=== PATIENT | male | born 1950 | race Caucasian/White ===

== ENCOUNTER 2020-01-23 10:42 | Outpatient (REF) | payer MEDICARE, SELFPAY ==
[2020-01-23 12:21] LABS: Basophils Absolute Auto 0.1 X10*3/uL (0.0-0.2); Basophils Percent Auto 0.6 % (0-2); Eosinophils Absolute Auto 0.1 X10*3/uL (0.0-0.4); Eosinophils Percent Auto 0.9 % (0-4); Hematocrit 41.9 % (42-52); Hemoglobin 13.9 g/dl (14.0-18.0); Imm Gran Abs Auto 0.02 X10*3/uL (0.00-0.03); Imm Gran Pct Auto 0.1 % (0.0-0.4); Lymphocytes Percent Auto 69.1 % (20-40); MANUAL DIFF FLAG SCAN; Mean Corpuscular HGB Conc 33.2 g/dl (31.0-36.0); Mean Corpuscular Hemoglobin 31.6 pg (27.0-33.0); Mean Corpuscular Volume 95.2 fL (80-98); Monocytes Absolute Auto 0.6 X10*3/uL (0.1-1.2); Monocytes Percent Auto 4.1 % (2-11); Neutrophils Absolute Auto 3.5 X10*3/uL (2.0-8.3); Neutrophils Percent Auto 25.2 % (45-73); Platelet Count 205 X10*3/uL (160-400); Red Cell Distribution Width 12.5 % (11.0-16.0); SCAN SMEAR FLAG 1; White Blood Count 13.7 X10*3/uL (4.8-10.8)
[2020-01-23 12:24] LABS: Lymphocytes Absolute Auto 9.5 X10*3/uL (1.2-4.9)
[2020-01-23 12:44] LABS: Alanine Aminotransferase 32 U/L (0-40); Albumin Level 4.4 g/dL (3.5-5.0); Alkaline Phosphatase 48 U/L (39-117); Anion Gap 11 (12-20); Aspartate Amino Transferase 29 U/L (5-37); Bilirubin Total 0.6 mg/dL (0.0-1.0); Blood Urea Nitrogen 26 mg/dL (9-16); Calcium 9.5 mg/dL (8.4-10.2); Carbon Dioxide 29 mmol/L (22-29); Chloride 102 mmol/L (96-108); Cholesterol 209 mg/dL; Estimated Glomerular Filt Rate > 60; Glucose Fasting 91 mg/dL (60-99); HDL Cholesterol 63 mg/dL; LDL Cholesterol Calculated 115 mg/dl; Potassium 4.9 mmol/l (3.3-5.1); Sodium 137 mmol/L (135-145); Total Protein 6.9 g/dL (6.5-8.0); Triglycerides 156 mg/dL
[2020-01-23 14:20] LABS: SLIDE REVIEW VERIFIED
== END 2020-01-23 10:43 | disposition home or self-care (01) ==
LOC: HO.LAB 10:42
PROVIDERS: PCP Internal Medicine Medical Oncology; Visit Provider Internal Medicine Medical Oncology
DX: I10 Essential (primary) hypertension (principal); E78.2 Mixed hyperlipidemia; D72.820 Lymphocytosis (symptomatic)
CPT/HCPCS: 36415; 80053; 80061; 85025

== ENCOUNTER 2020-04-25 12:09 | Outpatient (REF) | payer MEDICARE, SELFPAY ==
[2020-04-25 14:35] LABS: Baso%MD 0.7 %; Eos%MD 1.4 %; Hematocrit 41.2 % (42-52); Hemoglobin 13.7 g/dl (14.0-18.0); IG%MD 0.2 %; Lymph%MD 60.6 %; Mean Corpuscular HGB Conc 33.3 g/dl (31.0-36.0); Mean Corpuscular Hemoglobin 31.8 pg (27.0-33.0); Mean Corpuscular Volume 95.6 fL (80-98); Mean Platelet Volume 11.5 fL (9.4-12.4); Mono%MD 7.8 %; Neut%MD 29.3 %; Platelet Count 167 X10*3/uL (160-400); Red Blood Count 4.31 X10*6/uL (4.60-5.80); Red Cell Distribution Width 11.5 % (11.0-16.0); White Blood Count 8.3 X10*3/uL (4.8-10.8)
[2020-04-25 14:59] LABS: Alanine Aminotransferase 23 U/L (0-40); Albumin Level 4.1 g/dL (3.5-5.0); Alkaline Phosphatase 46 U/L (39-117); Anion Gap 11 (12-20); Aspartate Amino Transferase 24 U/L (5-37); Bilirubin Total 0.6 mg/dL (0.0-1.0); Blood Urea Nitrogen 21 mg/dL (9-16); Calcium 9.2 mg/dL (8.4-10.2); Carbon Dioxide 30 mmol/L (22-29); Chloride 104 mmol/L (96-108); Estimated Glomerular Filt Rate > 60; Glucose Random 76 mg/dL (60-115); Potassium 4.4 mmol/l (3.3-5.1); Sodium 141 mmol/L (135-145); Total Protein 6.5 g/dL (6.5-8.0)
[2020-04-25 15:36] LABS: Basophils Abs Manual 0.1 X10*3/uL (0.0-0.3); Basophils Percent Manual 1 % (0-1); Eosinophils Absolute Manual 0.2 X10*3/UL (0.0-0.8); Eosinophils Percent Manual 2 % (0-4); Lymphocytes Absolute Manual 3.7 X10*3/uL (0.6-4.8); Lymphocytes Percent Manual 44 % (20-40); Monocytes Absolute Manual 0.5 X10*3/uL (0.0-1.2); Monocytes Percent Manual 6 % (2-11); Neutrophils Percent Manual 47 % (45-73)
[2020-04-25 15:37] LABS: Platelet Estimate NORMAL (NORMAL); Platelet Morphology Comment NORMAL; RBC Morphology NORMAL
[2020-04-25 16:36] LABS: Neutrophils Absolute Manual 3.9 X10*3/uL (2.2-7.9)
== END 2020-04-25 12:10 | disposition home or self-care (01) ==
LOC: HO.10HDL 12:09
PROVIDERS: Visit Provider Internal Medicine Medical Oncology
DX: I10 Essential (primary) hypertension (principal); E78.2 Mixed hyperlipidemia; D72.820 Lymphocytosis (symptomatic)
CPT/HCPCS: 36415; 80053; 85007; 85027

== ENCOUNTER 2020-08-26 10:25 | Outpatient (REF) | payer MEDICARE, SELFPAY ==
[2020-08-26 11:43] LABS: Basophils Absolute Auto 0.1 X10*3/uL (0.0-0.2); Eosinophils Absolute Auto 0.3 X10*3/uL (0.0-0.4); Eosinophils Percent Auto 2.7 % (0-4); Hematocrit 41.2 % (42-52); Hemoglobin 13.7 g/dl (14.0-18.0); Imm Gran Abs Auto 0.02 X10*3/uL (0.00-0.03); Imm Gran Pct Auto 0.2 % (0.0-0.4); Lymphocytes Percent Auto 65.9 % (20-40); MANUAL DIFF FLAG SCAN; Mean Corpuscular HGB Conc 33.3 g/dl (31.0-36.0); Mean Corpuscular Hemoglobin 31.2 pg (27.0-33.0); Mean Corpuscular Volume 93.8 fL (80-98); Monocytes Absolute Auto 0.5 X10*3/uL (0.1-1.2); Neutrophils Absolute Auto 2.4 X10*3/uL (2.0-8.3); Neutrophils Percent Auto 25.2 % (45-73); Platelet Count 219 X10*3/uL (160-400); Red Blood Count 4.39 X10*6/uL (4.60-5.80); Red Cell Distribution Width 12.8 % (11.0-16.0); SCAN SMEAR FLAG 1; White Blood Count 9.6 X10*3/uL (4.8-10.8)
[2020-08-26 12:01] LABS: Lymphocytes Absolute Auto 6.3 X10*3/uL (1.2-4.9)
[2020-08-26 12:02] LABS: Alanine Aminotransferase 23 U/L (0-40); Albumin Level 4.4 g/dL (3.5-5.0); Alkaline Phosphatase 53 U/L (39-117); Anion Gap 13 (12-20); Aspartate Amino Transferase 26 U/L (5-37); Bilirubin Total 0.6 mg/dL (0.0-1.0); Blood Urea Nitrogen 21 mg/dL (9-16); Carbon Dioxide 27 mmol/L (22-29); Chloride 104 mmol/L (96-108); Cholesterol 236 mg/dL; Estimated Glomerular Filt Rate > 60; Glucose Random 95 mg/dL (60-115); HDL Cholesterol 60 mg/dL; LDL Cholesterol Calculated 146 mg/dl; Sodium 139 mmol/L (135-145); Total Protein 7.1 g/dL (6.5-8.0); Triglycerides 153 mg/dL
[2020-08-26 12:53] LABS: SLIDE REVIEW VERIFIED
== END 2020-08-26 10:26 | disposition home or self-care (01) ==
LOC: HO.LAB 10:25
PROVIDERS: PCP Internal Medicine Medical Oncology; Visit Provider Internal Medicine Medical Oncology
DX: I10 Essential (primary) hypertension (principal); D72.820 Lymphocytosis (symptomatic)
CPT/HCPCS: 36415; 80053; 80061; 85025

== ENCOUNTER 2020-12-11 10:33 | Outpatient (REF) | payer MEDICARE, SELFPAY ==
[2020-12-11 13:50] LABS: Basophils Absolute Auto 0.1 X10*3/uL (0.0-0.2); Basophils Percent Auto 0.6 % (0-2); Eosinophils Absolute Auto 0.2 X10*3/uL (0.0-0.4); Eosinophils Percent Auto 2.3 % (0-4); Hematocrit 42.1 % (42-52); Hemoglobin 13.8 g/dl (14.0-18.0); Imm Gran Abs Auto 0.02 X10*3/uL (0.00-0.03); Imm Gran Pct Auto 0.2 % (0.0-0.4); Lymphocytes Absolute Auto 7.1 X10*3/uL (1.2-4.9); Lymphocytes Percent Auto 66.7 % (20-40); MANUAL DIFF FLAG SCAN; Mean Corpuscular HGB Conc 32.8 g/dl (31.0-36.0); Mean Corpuscular Hemoglobin 31.2 pg (27.0-33.0); Mean Corpuscular Volume 95.2 fL (80-98); Mean Platelet Volume 11.2 fL (9.4-12.4); Monocytes Absolute Auto 0.5 X10*3/uL (0.1-1.2); Monocytes Percent Auto 4.9 % (2-11); Neutrophils Absolute Auto 2.7 X10*3/uL (2.0-8.3); Neutrophils Percent Auto 25.3 % (45-73); Platelet Count 171 X10*3/uL (160-400); Red Blood Count 4.42 X10*6/uL (4.60-5.80); Red Cell Distribution Width 12.4 % (11.0-16.0); SCAN SMEAR FLAG 1; White Blood Count 10.6 X10*3/uL (4.8-10.8)
[2020-12-11 14:38] LABS: Alanine Aminotransferase 30 U/L (0-40); Albumin Level 4.2 g/dL (3.5-5.0); Alkaline Phosphatase 49 U/L (39-117); Anion Gap 13 (12-20); Aspartate Amino Transferase 30 U/L (5-37); Bilirubin Total 0.5 mg/dL (0.0-1.0); Blood Urea Nitrogen 18 mg/dL (9-16); Calcium 9.6 mg/dL (8.4-10.2); Carbon Dioxide 28 mmol/L (22-29); Chloride 106 mmol/L (96-108); Cholesterol 211 mg/dL; Estimated Glomerular Filt Rate > 60; Glucose Fasting 98 mg/dL (60-99); HDL Cholesterol 66 mg/dL; LDL Cholesterol Calculated 117 mg/dl; Potassium 5.7 mmol/L (3.3-5.1); Sodium 141 mmol/L (135-145); Total Protein 6.9 g/dL (6.5-8.0); Triglycerides 144 mg/dL
[2020-12-11 14:46] LABS: SLIDE REVIEW VERIFIED
== END 2020-12-11 10:34 | disposition home or self-care (01) ==
LOC: HO.10HDL 10:33
PROVIDERS: PCP Internal Medicine Medical Oncology; Visit Provider Internal Medicine Medical Oncology
DX: I10 Essential (primary) hypertension (principal); E78.2 Mixed hyperlipidemia; D72.820 Lymphocytosis (symptomatic)
CPT/HCPCS: 36415; 80053; 80061; 85025

== ENCOUNTER 2020-12-16 08:51 | Outpatient (REF) | payer MEDICARE, SELFPAY ==
--- NOTE | ~2020-12-16 | CT_ITS ---
EXAMINATION: CT CHEST WITH CONTRAST CLINICAL INFORMATION: Cough, history of nicotine dependence. COMPARISON: CT scans of the chest, the most recent of which is dated 02/25/2018. TECHNIQUE: Multidetector volumetric CT imaging of the chest was obtained after the administration of 65 mL of Omnipaque 350 intravenous contrast without immediate adverse reactions. Axial MIP volume rendering provided. Sagittal and coronal reformatted images were obtained. This CT examination was performed using dose optimization techniques as appropriate, variously including the following: *Automated exposure control *Adjustment of mA and/or kV according to patient size (this includes techniques or standardized protocols for targeted exams where dose is matched to indication/reason for exam; i.e. extremities or head) *Use of iterative reconstruction technique DLP: 131 mGy-cm FINDINGS: BRAID MAKER: Unremarkable LUNGS: A 2 mm nodule in the posteromedial left upper lobe adjacent to the major fissure (series 5, image 67), is unchanged. There are no new nodules. MEDIASTINUM: There is no mediastinal or hilar adenopathy. There are numerous scattered coronary artery calcifications, unchanged. The thyroid gland is unremarkable. The trachea and mainstem bronchi are unremarkable. PLEURA: There is no pleural effusion. No pleural mass or thickening. AXILLA: No lymphadenopathy. UPPER ABDOMEN: Three enhancing lesions in the liver, compatible with hemangiomas, are unchanged. The upper abdominal structures are otherwise unremarkable. OSSEOUS STRUCTURES: There is stable mild multilevel degenerative disc disease. There are no suspicious osseous abnormalities. CT/CT chest w con IMPRESSION: 1. Stable 2 mm calcified granuloma in the left upper lobe. No other nodules or mass lesions. 2. Stable enhancing lesions in the liver compatible with hemangiomas. 3. No acute abnormalities in the chest.
[2020-12-16] MEDS: iohexoL 350 MG/ML 100 ML INFUS..BTL IV (09:35)
== END 2020-12-16 08:52 | disposition home or self-care (01) ==
LOC: HO.CT 08:51
PROVIDERS: PCP Internal Medicine Medical Oncology; Visit Provider Internal Medicine Medical Oncology
DX: R05 Cough (principal); Z87.891 Personal history of nicotine dependence
CPT/HCPCS: 71260; Q9967

== ENCOUNTER → 2021-01-16 10:00 | Outpatient (REF) | payer MEDICARE, SELFPAY ==
--- NOTE | 2021-01-16 10:04 | CA_ITS ---
Acquisition Time: 2021-01-16 10:17:54 Total Exercise Time: 00:04:26 Test Indications: Screening for CAD Medications: LISINOPRIL HCTZ Protocol: AUGUST Max HR: 160 BPM 107% of Pred: 149 BPM Max BP: 182/084 mmHG Max Work Load: 6.3 METS Exercise stress test with exercise 4 min 26 sec of August protocol and request to stop due to moderate shortness of breath, no chest discomfort, with isolated PVCs, and PACs with more frequent PACs in recovery, with brisk chronotropic ( achieved 85% MPHR at 1 min 20 sec exercise and 100% MPHR at 2 min 18 sec of exercise) and normotensive response to exercise, with EKG changes meeting criteria for ischemia: 1.[address] depression in V5-V6 then in recovery with downsloping ST segements inferiorly, with gradual improvement during the remainder of recovery. Test reviewed with Dr Dobbs. Msg sent to Dr Horta with above findings. Recommend an exercise nuclear stress test for further evaluation. Referred By: Hugo Smith Overread By: KIMANI SHARP
== END ==
LOC: HO.CARD 10:00
PROVIDERS: PCP Internal Medicine Medical Oncology; Visit Provider Internal Medicine Medical Oncology
DX: I25.10 Atherosclerotic heart disease of native coronary artery without angina pectoris (principal); I25.84 Coronary atherosclerosis due to calcified coronary lesion
CPT/HCPCS: 93017

== ENCOUNTER → 2021-01-31 08:45 | Outpatient (REF) | payer MEDICARE, SELFPAY ==
--- NOTE | ~2021-01-31 | NM_ITS ---
Exercise Myocardial perfusion study Indication: Coronary artery calcification to evaluate for myocardial ischemia Technique: The patient was brought in for an exercise perfusion study on 01/31/2021. Patient performed exercise as per Edward protocol and was injected 25 mCi of sestamibi was given intravenously one target HR was achieved. Images were obtained using the SPECT gamma camera interlaced with the gating device. Images were obtained in supine position. Resting perfusion study was performed on 02/03/2021. Patient was administered 25 mCi of sestamibi intravenously at rest. Images were then obtained in supine position. Images obtained with and without CT attenuation. Total DLP 76 mGy-cm. Images were processed with the software and compared side to side in short axis, horizontal long axis and vertical long axis views. Findings: The stress perfusion study showed nonattenuated images show mildly reduced uptake in the distal anterior, focal, moderately reduced uptake in the basal and mid inferior and absent uptake in the inferoapical wall of the LV myocardium. Attenuation corrected images show moderately reduced uptake in the distal anterior, mildly reduced uptake in the apex, absent uptake in a small area of inferoapical wall and mildly to moderately reduced uptake in the basal and mid inferior wall of the LV myocardium. Remainder of the LV myocardium is normally perfused.. The gated study with stress and not be obtained due to irregular heart beat. LV cavity is moderately dilated in size. Resting study shows nontender images show persistent small area of mildly reduced uptake in the distal anterior wall reversible persistent absent uptake in the inferoapical wall of the basal inferior wall reduced uptake. Attenuation corrected images show moderately reduced uptake in the focal small area of distal anterior wall as well as mildly reduced uptake in the apex of the uptake in the basal and mid inferior wall and partially improved uptake in the inferoapical wall.. Gating at rest reveals inferior wall motion abnormality with ejection fraction at 49%. The findings are consistent with partially reversible defect of the inferior wall which may suggest ischemia in the RCA distribution. Fixed anteroapical defect consistent with nontransmural infarct. NM/NM maranda perf SPECT rest & str Impression: 1. Partially reversible defect in inferior wall suggests RCA territory ischemia with small area of nontransmural anteroapical 2. Gated LVEF is 49% rest 3. Transient ischemic dilatation not present but LV cavity is dilated, consider echocardiogram Stress EKG is positive for ischemia
--- NOTE | 2021-01-31 08:49 | CA_ITS ---
Acquisition Time: 2021-01-31 08:49:42 Total Exercise Time: 00:05:00 Test Indications: Screening for CAD Medications: LISINOPRIL HCTZ Protocol: AUGUST Max HR: 153 BPM 102% of Pred: 149 BPM Max BP: 178/088 mmHG Max Work Load: 7.0 METS Exercise stress test with exercise 5 min of August protocol, with mild sob, no chest discomfort, with brisk chronotropic response ( achieved 85% MPHR at 1 min 39 sec of exercise, 100% MPHR at 4 min 24 sec of exercise) and normotensive response to exercise, with EKG changes meeting criteria for ischemia: horizontal ST depression inferiorly, V5-V6 which become downsloping STs during recovery and gradually improvement to his baseline slight downlope of ST inferiorly and V5-V6. Nuclear images pending. Test reviewed with Dr Macias. Referred By: Hugo Smith Overread By: KIMANI SHARP
== END ==
LOC: HO.CARD 08:45
PROVIDERS: Visit Provider Internal Medicine Medical Oncology
DX: I25.10 Atherosclerotic heart disease of native coronary artery without angina pectoris (principal); I25.84 Coronary atherosclerosis due to calcified coronary lesion; I10 Essential (primary) hypertension
CPT/HCPCS: 78452; 93017; A9500

== ENCOUNTER 2021-04-16 09:51 | Outpatient (REF) | payer MEDICARE, SELFPAY ==
[2021-04-16 11:30] LABS: Basophils Absolute Auto 0.1 X10*3/uL (0.0-0.2); Basophils Percent Auto 0.6 % (0-2); Eosinophils Absolute Auto 0.2 X10*3/uL (0.0-0.4); Eosinophils Percent Auto 2.1 % (0-4); Hematocrit 41.5 % (42.0-52.0); Hemoglobin 14.1 g/dl (14.0-18.0); Imm Gran Abs Auto 0.02 X10*3/uL (0.00-0.03); Imm Gran Pct Auto 0.2 % (0.0-0.4); Lymphocytes Percent Auto 61.7 % (20-40); MANUAL DIFF FLAG SCAN; Mean Corpuscular Hemoglobin 31.4 pg (27.0-33.0); Mean Corpuscular Volume 92.4 fL (80.0-98.0); Mean Platelet Volume 12.2 fL (9.4-12.4); Monocytes Absolute Auto 0.8 X10*3/uL (0.1-1.2); Monocytes Percent Auto 6.6 % (2-11); Neutrophils Absolute Auto 3.3 x10*3/uL (2.0-8.3); Neutrophils Percent Auto 28.8 % (45-73); Platelet Count 145 X10*3/uL (160-400); Red Blood Count 4.49 X10*6/uL (4.60-5.80); Red Cell Distribution Width 11.9 % (11.0-16.0); SCAN SMEAR FLAG 1; White Blood Count 11.3 X10*3/uL (4.8-10.8)
[2021-04-16 12:00] LABS: Alanine Aminotransferase 55 U/L (0-40); Albumin Level 4.1 g/dL (3.5-5.0); Alkaline Phosphatase 51 U/L (39-117); Anion Gap 8 (12-20); Aspartate Amino Transferase 40 U/L (5-37); Bilirubin Total 0.7 mg/dL (0.0-1.0); Blood Urea Nitrogen 19 mg/dL (9-16); Calcium 9.6 mg/dL (8.4-10.2); Carbon Dioxide 29 mmol/L (22-29); Chloride 106 mmol/L (96-108); Cholesterol 157 mg/dL; Estimated Glomerular Filt Rate > 60; Glucose Fasting 95 mg/dL (60-99); HDL Cholesterol 52 mg/dL; LDL Cholesterol Calculated 82 mg/dl; Sodium 139 mmol/L (135-145); Total Protein 6.5 g/dL (6.5-8.0); Triglycerides 118 mg/dL
[2021-04-16 12:03] LABS: SLIDE REVIEW VERIFIED
== END 2021-04-16 09:52 | disposition home or self-care (01) ==
LOC: HO.10HDL 09:51
PROVIDERS: Visit Provider Internal Medicine Medical Oncology
DX: I10 Essential (primary) hypertension (principal); E78.2 Mixed hyperlipidemia
CPT/HCPCS: 36415; 80053; 80061; 85025

== ENCOUNTER 2021-05-01 10:05 | Outpatient (REF) | payer MEDICARE, SELFPAY ==
[2021-05-01 14:19] LABS: Basophils Absolute Auto 0.1 X10*3/uL (0.0-0.2); Basophils Percent Auto 0.7 % (0-2); Eosinophils Absolute Auto 0.2 X10*3/uL (0.0-0.4); Eosinophils Percent Auto 2.1 % (0-4); Hemoglobin 14.1 g/dl (14.0-18.0); Imm Gran Abs Auto 0.02 X10*3/uL (0.00-0.03); Imm Gran Pct Auto 0.2 % (0.0-0.4); Lymphocytes Percent Auto 63.5 % (20-40); MANUAL DIFF FLAG SCAN; Mean Corpuscular HGB Conc 33.6 g/dl (31.0-36.0); Mean Corpuscular Hemoglobin 31.4 pg (27.0-33.0); Mean Corpuscular Volume 93.5 fL (80.0-98.0); Mean Platelet Volume 11.7 fL (9.4-12.4); Monocytes Absolute Auto 0.6 X10*3/uL (0.1-1.2); Monocytes Percent Auto 5.7 % (2-11); Neutrophils Absolute Auto 2.8 x10*3/uL (2.0-8.3); Neutrophils Percent Auto 27.8 % (45-73); Platelet Count 149 X10*3/uL (160-400); Red Blood Count 4.49 X10*6/uL (4.60-5.80); SCAN SMEAR FLAG 1
[2021-05-01 14:23] LABS: Lymphocytes Absolute Auto 6.4 X10*3/uL (1.2-4.9)
[2021-05-01 14:45] LABS: SLIDE REVIEW VERIFIED
[2021-05-01 14:55] LABS: Alanine Aminotransferase 86 U/L (0-40); Alkaline Phosphatase 51 U/L (39-117); Anion Gap 8 (12-20); Aspartate Amino Transferase 56 U/L (5-37); Bilirubin Total 0.4 mg/dL (0.0-1.0); Blood Urea Nitrogen 21 mg/dL (9-16); Calcium 9.3 mg/dL (8.4-10.2); Carbon Dioxide 29 mmol/L (22-29); Chloride 106 mmol/L (96-108); Cholesterol 144 mg/dL; Estimated Glomerular Filt Rate 59; Glucose Fasting 88 mg/dL (60-99); HDL Cholesterol 48 mg/dL; LDL Cholesterol Calculated 72 mg/dl; Potassium 4.4 mmol/L (3.3-5.1); Sodium 139 mmol/L (135-145); Total Protein 6.5 g/dL (6.5-8.0); Triglycerides 121 mg/dL
== END 2021-05-01 10:06 | disposition home or self-care (01) ==
LOC: HO.10HDL 10:05
PROVIDERS: Visit Provider Internal Medicine Medical Oncology
DX: I10 Essential (primary) hypertension (principal); E78.2 Mixed hyperlipidemia
CPT/HCPCS: 36415; 80053; 80061; 85025

== ENCOUNTER 2021-07-21 11:55 | Outpatient (REF) | payer MEDICARE, SELFPAY ==
[2021-07-21 13:25] LABS: Basophils Absolute Auto 0.1 X10*3/uL (0.0-0.2); Basophils Percent Auto 0.6 % (0-2); Eosinophils Absolute Auto 0.1 X10*3/uL (0.0-0.4); Eosinophils Percent Auto 1.4 % (0-4); Hematocrit 41.4 % (42.0-52.0); Hemoglobin 13.6 g/dl (14.0-18.0); Imm Gran Abs Auto 0.02 X10*3/uL (0.00-0.03); Imm Gran Pct Auto 0.2 % (0.0-0.4); Lymphocytes Absolute Auto 5.9 X10*3/uL (1.2-4.9); Lymphocytes Percent Auto 58.5 % (20-40); MANUAL DIFF FLAG SCAN; Mean Corpuscular HGB Conc 32.9 g/dl (31.0-36.0); Mean Corpuscular Hemoglobin 31.3 pg (27.0-33.0); Mean Corpuscular Volume 95.4 fL (80.0-98.0); Mean Platelet Volume 11.7 fL (9.4-12.4); Monocytes Absolute Auto 0.7 X10*3/uL (0.1-1.2); Monocytes Percent Auto 6.4 % (2-11); Neutrophils Absolute Auto 3.3 x10*3/uL (2.0-8.3); Neutrophils Percent Auto 32.9 % (45-73); Platelet Count 176 X10*3/uL (160-400); Red Blood Count 4.34 X10*6/uL (4.60-5.80); Red Cell Distribution Width 11.9 % (11.0-16.0); SCAN SMEAR FLAG 1; White Blood Count 10.1 X10*3/uL (4.8-10.8)
[2021-07-21 13:48] LABS: SLIDE REVIEW VERIFIED
[2021-07-21 13:51] LABS: Alanine Aminotransferase 28 U/L (0-40); Albumin Level 4.2 g/dL (3.5-5.0); Alkaline Phosphatase 49 U/L (39-117); Anion Gap 8 (12-20); Aspartate Amino Transferase 22 U/L (5-37); Bilirubin Total 0.5 mg/dL (0.0-1.0); Blood Urea Nitrogen 17 mg/dL (9-16); Calcium 9.8 mg/dL (8.4-10.2); Carbon Dioxide 28 mmol/L (22-29); Chloride 106 mmol/L (96-108); Cholesterol 121 mg/dL; Estimated Glomerular Filt Rate > 60; Glucose Fasting 73 mg/dL (60-99); HDL Cholesterol 48 mg/dL; LDL Cholesterol Calculated 44 mg/dl; Potassium 4.2 mmol/L (3.3-5.1); Sodium 138 mmol/L (135-145); Total Protein 6.6 g/dL (6.5-8.0); Triglycerides 145 mg/dL
== END 2021-07-21 11:56 | disposition home or self-care (01) ==
LOC: HO.10HDL 11:55
PROVIDERS: Visit Provider Internal Medicine Medical Oncology
DX: I10 Essential (primary) hypertension (principal); E78.2 Mixed hyperlipidemia
CPT/HCPCS: 36415; 80053; 80061; 85025

== ENCOUNTER 2021-11-12 10:19 | Outpatient (REF) | payer MEDICARE, SELFPAY ==
[2021-11-12 13:50] LABS: Basophils Absolute Auto 0.1 X10*3/uL (0.0-0.2); Basophils Percent Auto 0.7 % (0-2); Eosinophils Absolute Auto 0.1 X10*3/uL (0.0-0.4); Eosinophils Percent Auto 1.3 % (0-4); Hematocrit 41.2 % (42.0-52.0); Hemoglobin 13.8 g/dl (14.0-18.0); Imm Gran Abs Auto 0.02 X10*3/uL (0.00-0.03); Imm Gran Pct Auto 0.2 % (0.0-0.4); Lymphocytes Percent Auto 65.7 % (20-40); MANUAL DIFF FLAG SCAN; Mean Corpuscular HGB Conc 33.5 g/dl (31.0-36.0); Mean Corpuscular Hemoglobin 30.9 pg (27.0-33.0); Mean Corpuscular Volume 92.2 fL (80.0-98.0); Mean Platelet Volume 12.5 fL (9.4-12.4); Monocytes Absolute Auto 0.5 X10*3/uL (0.1-1.2); Monocytes Percent Auto 5.2 % (2-11); Neutrophils Absolute Auto 2.8 x10*3/uL (2.0-8.3); Neutrophils Percent Auto 26.9 % (45-73); Platelet Count 157 X10*3/uL (160-400); Red Blood Count 4.47 X10*6/uL (4.60-5.80); Red Cell Distribution Width 12.1 % (11.0-16.0); SCAN SMEAR FLAG 1; White Blood Count 10.5 X10*3/uL (4.8-10.8)
[2021-11-12 13:52] LABS: Lymphocytes Absolute Auto 6.9 X10*3/uL (1.2-4.9)
[2021-11-12 14:12] LABS: SLIDE REVIEW VERIFIED
[2021-11-12 14:17] LABS: Alanine Aminotransferase 39 U/L (0-40); Albumin Level 4.5 g/dL (3.5-5.0); Alkaline Phosphatase 55 U/L (39-117); Anion Gap 13 (12-20); Aspartate Amino Transferase 37 U/L (5-37); Bilirubin Total 0.5 mg/dL (0.0-1.0); Blood Urea Nitrogen 19 mg/dL (9-16); Calcium 9.6 mg/dL (8.4-10.2); Carbon Dioxide 27 mmol/L (22-29); Chloride 105 mmol/L (96-108); Cholesterol 147 mg/dL; Estimated Glomerular Filt Rate 57; Gamma Glutamyl Transpeptidase 26 U/L (11-51); Glucose Fasting 88 mg/dL (60-99); HDL Cholesterol 53 mg/dL; LDL Cholesterol Calculated 77 mg/dl; Potassium 5.6 mmol/L (3.3-5.1); Sodium 139 mmol/L (135-145); Total Protein 6.9 g/dL (6.5-8.0); Triglycerides 85 mg/dL
== END 2021-11-12 10:20 | disposition home or self-care (01) ==
LOC: HO.10HDL 10:19
PROVIDERS: Visit Provider Internal Medicine Medical Oncology
DX: I10 Essential (primary) hypertension (principal); E78.2 Mixed hyperlipidemia; C91.10 Chronic lymphocytic leukemia of B-cell type not having achieved remission
CPT/HCPCS: 36415; 80053; 80061; 82977; 85025

== ENCOUNTER 2022-03-16 10:27 | Outpatient (REF) | payer MEDICARE, SELFPAY ==
[2022-03-16 11:50] LABS: Basophils Absolute Auto 0.1 X10*3/uL (0.0-0.2); Basophils Percent Auto 0.7 % (0-2); Eosinophils Absolute Auto 0.3 X10*3/uL (0.0-0.4); Eosinophils Percent Auto 2.1 % (0-4); Hematocrit 44.2 % (42.0-52.0); Hemoglobin 14.6 g/dl (14.0-18.0); Imm Gran Abs Auto 0.03 X10*3/uL (0.00-0.03); Imm Gran Pct Auto 0.2 % (0.0-0.4); Lymphocytes Percent Auto 64.5 % (20-40); Mean Corpuscular Hemoglobin 30.9 pg (27.0-33.0); Mean Corpuscular Volume 93.6 fL (80.0-98.0); Mean Platelet Volume 11.7 fL (9.4-12.4); Monocytes Absolute Auto 0.6 X10*3/uL (0.1-1.2); Monocytes Percent Auto 4.9 % (2-11); Neutrophils Absolute Auto 3.4 x10*3/uL (2.0-8.3); Neutrophils Percent Auto 27.6 % (45-73); Platelet Count 161 X10*3/uL (160-400); Red Blood Count 4.72 X10*6/uL (4.60-5.80); Red Cell Distribution Width 11.8 % (11.0-16.0); SCAN SMEAR FLAG 1; White Blood Count 12.1 X10*3/uL (4.8-10.8)
[2022-03-16 11:58] LABS: Lymphocytes Absolute Auto 7.8 X10*3/uL (1.2-4.9)
[2022-03-16 11:59] LABS: MANUAL DIFF FLAG NO
[2022-03-16 15:40] LABS: Alanine Aminotransferase 91 U/L (0-40); Albumin Level 4.3 g/dL (3.5-5.0); Alkaline Phosphatase 53 U/L (39-117); Anion Gap 12 (12-20); Aspartate Amino Transferase 68 U/L (5-37); Bilirubin Total 0.3 mg/dL (0.0-1.0); Blood Urea Nitrogen 19 mg/dL (9-16); Calcium 9.7 mg/dL (8.4-10.2); Carbon Dioxide 28 mmol/L (22-29); Chloride 104 mmol/L (96-108); Cholesterol 165 mg/dL; Estimated Glomerular Filt Rate > 60; Glucose Fasting 93 mg/dL (60-99); HDL Cholesterol 56 mg/dL; LDL Cholesterol Calculated 83 mg/dl; Potassium 5.4 mmol/L (3.3-5.1); Prostate Specific Antigen 0.47 ng/mL (<0.05-4.0); Sodium 139 mmol/L (135-145); Total Protein 6.8 g/dL (6.5-8.0); Triglycerides 133 mg/dL; Vitamin D 25-OH Total 34.4 ng/mL (>30)
== END 2022-03-16 10:28 | disposition home or self-care (01) ==
LOC: HO.10HDL 10:27
PROVIDERS: Visit Provider Internal Medicine Medical Oncology
DX: Z12.5 Encounter for screening for malignant neoplasm of prostate (principal); I10 Essential (primary) hypertension; E78.2 Mixed hyperlipidemia; C91.10 Chronic lymphocytic leukemia of B-cell type not having achieved remission; R35.1 Nocturia; E55.9 Vitamin D deficiency, unspecified
CPT/HCPCS: 36415; 80053; 80061; 82306; 84153; 85025

== ENCOUNTER 2022-09-03 09:30 | Outpatient (REF) | payer MEDICARE, SELFPAY ==
[2022-09-03 10:32] LABS: Hematocrit 42.8 % (42.0-52.0); Hemoglobin 14.1 g/dl (14.0-18.0); Mean Corpuscular HGB Conc 32.9 g/dl (31.0-36.0); Mean Corpuscular Hemoglobin 31.4 pg (27.0-33.0); Mean Corpuscular Volume 95.3 fL (80.0-98.0); Mean Platelet Volume 11.2 fL (9.4-12.4); Platelet Count 164 X10*3/uL (160-400); Red Blood Count 4.49 X10*6/uL (4.60-5.80); Red Cell Distribution Width 12.5 % (11.0-16.0); White Blood Count 12.3 X10*3/uL (4.8-10.8)
[2022-09-03 10:55] LABS: Alanine Aminotransferase 35 U/L (0-40); Albumin Level 4.2 g/dL (3.5-5.0); Alkaline Phosphatase 45 U/L (39-117); Anion Gap 10 (12-20); Aspartate Amino Transferase 31 U/L (5-37); Bilirubin Total 0.6 mg/dL (0.0-1.0); Blood Urea Nitrogen 17 mg/dL (9-16); Calcium 9.8 mg/dL (8.4-10.2); Carbon Dioxide 29 mmol/L (22-29); Chloride 108 mmol/L (96-108); Cholesterol 158 mg/dL; Estimated Glomerular Filt Rate 58; Gamma Glutamyl Transpeptidase 34 U/L (11-51); Glucose Fasting 100 mg/dL (60-99); HDL Cholesterol 52 mg/dL; LDL Cholesterol Calculated 75 mg/dl; Lactate Dehydrogenase 139 U/L (118-273); Potassium 5.6 mmol/L (3.3-5.1); Sodium 141 mmol/L (135-145); Total Protein 6.6 g/dL (6.5-8.0); Triglycerides 155 mg/dL
[2022-09-03 13:17] LABS: Atypical Lymph Absolute Manual 0.2 x10*3/uL; Atypical Lymphs Percent Manual 2 % (0-6); Band Neutrophils Percent 0 % (3-5); Basophils Abs Manual 0.1 X10*3/uL (0.0-0.2); Basophils Percent Manual 1 % (0-2); Eosinophils Absolute Manual 0.4 X10*3/uL (0.0-0.4); Eosinophils Percent Manual 3 % (0-4); Lymphocytes Absolute Manual 8.4 X10*3/uL (1.2-4.9); Lymphocytes Percent Manual 68 % (20-40); Monocytes Absolute Manual 0.9 X10*3/uL (0.1-1.2); Monocytes Percent Manual 7 % (2-11); Neutrophils Absolute Manual 2.3 X10*3/uL (2.0-8.3); Neutrophils Percent Manual 19 % (45-73)
[2022-09-03 13:18] LABS: Platelet Estimate NORMAL (NORMAL); Platelet Morphology Comment NORMAL; RBC Morphology NORMAL; Smudge Cells PRESENT
== END 2022-09-03 09:31 | disposition home or self-care (01) ==
LOC: HO.10HDL 09:30
PROVIDERS: Visit Provider Internal Medicine Medical Oncology
DX: I10 Essential (primary) hypertension (principal); E78.2 Mixed hyperlipidemia; C91.10 Chronic lymphocytic leukemia of B-cell type not having achieved remission
CPT/HCPCS: 36415; 80053; 80061; 82977; 83615; 85007; 85025; 85027

== ENCOUNTER 2022-12-08 09:52 | Outpatient (REF) | payer MEDICARE, SELFPAY ==
[2022-12-08 11:05] LABS: Alanine Aminotransferase 34 U/L (0-40); Albumin Level 4.3 g/dL (3.5-5.0); Alkaline Phosphatase 41 U/L (39-117); Anion Gap 12 (12-20); Aspartate Amino Transferase 35 U/L (5-37); Bilirubin Total 0.7 mg/dL (0.0-1.0); Blood Urea Nitrogen 22 mg/dL (9-16); Calcium 9.7 mg/dL (8.4-10.2); Carbon Dioxide 26 mmol/L (22-29); Chloride 102 mmol/L (96-108); Cholesterol 137 mg/dL (<200); Estimated Glomerular Filt Rate > 60; Glucose Fasting 93 mg/dL (60-99); HDL Cholesterol 60 mg/dL (>40); LDL Cholesterol Calculated 64 mg/dL (<100); Potassium 4.7 mmol/L (3.3-5.1); Sodium 135 mmol/L (135-145); Total Protein 6.8 g/dL (6.5-8.0); Triglycerides 69 mg/dL (<150)
[2022-12-08 11:38] LABS: Prostate Specific Antigen 0.56 ng/mL (<0.05-4.0)
== END 2022-12-08 09:53 | disposition home or self-care (01) ==
LOC: HO.10HDL 09:52
PROVIDERS: Visit Provider Internal Medicine Medical Oncology
DX: R35.1 Nocturia (principal); I10 Essential (primary) hypertension; E78.2 Mixed hyperlipidemia; Z12.5 Encounter for screening for malignant neoplasm of prostate; Z87.891 Personal history of nicotine dependence
CPT/HCPCS: 36415; 80053; 80061; 84153; 85025

== ENCOUNTER 2022-12-11 12:35 | Outpatient (REF) | payer MEDICARE, SELFPAY ==
[2022-12-11 14:08] LABS: Basophils Absolute Auto 0.1 X10*3/uL (0.0-0.2); Basophils Percent Auto 0.9 % (0-2); Eosinophils Absolute Auto 0.2 X10*3/uL (0.0-0.4); Eosinophils Percent Auto 1.6 % (0-4); Hematocrit 40.1 % (42.0-52.0); Hemoglobin 13.5 g/dl (14.0-18.0); Imm Gran Abs Auto 0.01 X10*3/uL (0.00-0.03); Imm Gran Pct Auto 0.1 % (0.0-0.4); MANUAL DIFF FLAG SCAN; Mean Corpuscular HGB Conc 33.7 g/dl (31.0-36.0); Mean Corpuscular Hemoglobin 31.8 pg (27.0-33.0); Mean Corpuscular Volume 94.4 fL (80.0-98.0); Mean Platelet Volume 11.4 fL (9.4-12.4); Monocytes Absolute Auto 0.6 X10*3/uL (0.1-1.2); Monocytes Percent Auto 6.2 % (2-11); Neutrophils Absolute Auto 2.4 x10*3/uL (2.0-8.3); Neutrophils Percent Auto 24.2 % (45-73); Platelet Count 156 X10*3/uL (160-400); Red Blood Count 4.25 X10*6/uL (4.60-5.80); Red Cell Distribution Width 12.3 % (11.0-16.0); SCAN SMEAR FLAG 1; White Blood Count 9.8 X10*3/uL (4.8-10.8)
[2022-12-11 14:11] LABS: Lymphocytes Absolute Auto 6.6 X10*3/uL (1.2-4.9)
[2022-12-11 14:57] LABS: SLIDE REVIEW VERIFIED
== END 2022-12-11 12:36 | disposition home or self-care (01) ==
LOC: HO.10HDL 12:35
PROVIDERS: Visit Provider Internal Medicine Medical Oncology
DX: R35.1 Nocturia (principal); I10 Essential (primary) hypertension; E78.2 Mixed hyperlipidemia; Z87.891 Personal history of nicotine dependence
CPT/HCPCS: 36415; 85025

== ENCOUNTER 2023-04-08 10:23 | Outpatient (REF) | payer MEDICARE, SELFPAY ==
[2023-04-08 10:51] LABS: Basophils Absolute Auto 0.1 X10*3/uL (0.0-0.2); Basophils Percent Auto 0.5 % (0-2); Eosinophils Absolute Auto 0.1 X10*3/uL (0.0-0.4); Eosinophils Percent Auto 1.4 % (0-4); Hematocrit 40.5 % (42.0-52.0); Hemoglobin 13.6 g/dl (14.0-18.0); Imm Gran Abs Auto 0.02 X10*3/uL (0.00-0.03); Imm Gran Pct Auto 0.2 % (0.0-0.4); Lymphocytes Percent Auto 65.6 % (20-40); MANUAL DIFF FLAG SCAN; Mean Corpuscular HGB Conc 33.6 g/dl (31.0-36.0); Mean Corpuscular Hemoglobin 31.4 pg (27.0-33.0); Mean Corpuscular Volume 93.5 fL (80.0-98.0); Mean Platelet Volume 10.4 fL (9.4-12.4); Monocytes Absolute Auto 0.6 X10*3/uL (0.1-1.2); Neutrophils Absolute Auto 2.4 x10*3/uL (2.0-8.3); Neutrophils Percent Auto 26.3 % (45-73); Platelet Count 181 X10*3/uL (160-400); Red Blood Count 4.33 X10*6/uL (4.60-5.80); Red Cell Distribution Width 12.3 % (11.0-16.0); SCAN SMEAR FLAG 1; White Blood Count 9.2 X10*3/uL (4.8-10.8)
[2023-04-08 11:12] LABS: Alanine Aminotransferase 29 U/L (0-40); Albumin Level 4.1 g/dL (3.5-5.0); Alkaline Phosphatase 48 U/L (39-117); Anion Gap 11 (12-20); Aspartate Amino Transferase 35 U/L (5-37); Bilirubin Total 0.4 mg/dL (0.0-1.0); Blood Urea Nitrogen 18 mg/dL (9-16); Calcium 9.6 mg/dL (8.4-10.2); Carbon Dioxide 27 mmol/L (22-29); Chloride 107 mmol/L (96-108); Cholesterol 132 mg/dL (<200); Estimated Glomerular Filt Rate > 60; Glucose Fasting 95 mg/dL (60-99); HDL Cholesterol 53 mg/dL (>40); LDL Cholesterol Calculated 63 mg/dL (<100); Potassium 4.9 mmol/L (3.3-5.1); Sodium 140 mmol/L (135-145); Total Protein 6.9 g/dL (6.5-8.0); Triglycerides 80 mg/dL (<150)
[2023-04-08 11:31] LABS: SLIDE REVIEW VERIFIED
== END 2023-04-08 10:24 | disposition home or self-care (01) ==
LOC: HO.10HDL 10:23
PROVIDERS: Visit Provider Internal Medicine Medical Oncology
DX: Z00.00 Encounter for general adult medical examination without abnormal findings (principal); I10 Essential (primary) hypertension; E78.2 Mixed hyperlipidemia
CPT/HCPCS: 36415; 80053; 80061; 85025

== ENCOUNTER 2023-08-04 10:55 | Outpatient (REF) | payer MEDICARE, SELFPAY ==
--- NOTE | ~2023-08-04 | CT_ITS ---
EXAMINATION: CT CHEST WITH CONTRAST CLINICAL INFORMATION: Former smoker. COMPARISON: Prior CT examinations, most recently 12/16/2020. TECHNIQUE: Multidetector volumetric CT imaging of the chest was obtained after the administration of 65 mL of Omnipaque 350 intravenous contrast without immediate adverse reactions. Axial MIP volume rendering provided. Sagittal and coronal reformatted images were obtained. This CT examination was performed using dose optimization techniques as appropriate, variously including the following: *Automated exposure control *Adjustment of mA and/or kV according to patient size (this includes techniques or standardized protocols for targeted exams where dose is matched to indication/reason for exam; i.e. extremities or head) *Use of iterative reconstruction technique DLP: 127 mGy-cm FINDINGS: POLLS OR SURVEYS INTERVIEWER: The lungs are symmetrically well-expanded and grossly clear. LUNGS: A 1 mm noncalcified nodule is seen at the anterior left apex (5:36). This is stable from 12/16/2020 (5:34), and it is considered benign. There is a benign, stable calcified granuloma within the apicoposterior segment of the left upper lobe (5:71). No new nodule, mass, infiltrate or groundglass opacity is seen. There is mild dependent hypoaeration. No small airway thickening is seen. The central airways appear patent. MEDIASTINUM: The thyroid is unremarkable. There is no thoracic aortic aneurysm or dissection. There are very mild atherosclerotic calcifications of the great vessel origins and thoracic aorta. There are moderate coronary artery atherosclerotic calcifications. There are shotty, nonpathologically enlarged mediastinal lymph nodes. No sizable mediastinal or hilar lymphadenopathy is seen. PLEURA: There is no pleural effusion. No pleural mass or thickening. AXILLA: No lymphadenopathy. UPPER ABDOMEN: The bilateral adrenal glands are unremarkable. Previously described enhancing benign hepatic hemangiomas are redemonstrated. OSSEOUS STRUCTURES: There is multi-level mid and lower thoracic spondylosis and Schmorl's node formation. No acute or aggressive osseous finding is noted. CT/CT chest w IV con IMPRESSION: 1. There is are benign, stable tiny noncalcified and calcified left upper lobe nodules, unchanged from prior CT examinations including 12/16/2020. 2. No new nodule, mass, infiltrate or groundglass opacity is seen. 3. There is no thoracic lymphadenopathy or pleural effusion. 4. No aggressive osseous lesion is seen. 5. There are stable benign hepatic hemangiomas. Fleischner guidelines were followed.
[2023-08-04] MEDS: iohexoL 350 MG/ML 100 ML INFUS..BTL IV (11:50)
[2023-08-04 15:27] LABS: Creatinine POC 0.7 mg/dL (0.5-1.4); GFR POC > 60
== END 2023-08-04 10:56 | disposition home or self-care (01) ==
LOC: HO.CT 10:55
PROVIDERS: PCP Internal Medicine Medical Oncology; Visit Provider Internal Medicine Medical Oncology
DX: Z87.891 Personal history of nicotine dependence (principal)
CPT/HCPCS: 71260; 82565; Q9967

== ENCOUNTER 2023-08-11 11:21 | Outpatient (REF) | payer MEDICARE, SELFPAY ==
[2023-08-11 13:52] LABS: Basophils Absolute Auto 0.1 X10*3/uL (0.0-0.2); Basophils Percent Auto 0.8 % (0-2); Eosinophils Absolute Auto 0.2 X10*3/uL (0.0-0.4); Eosinophils Percent Auto 1.8 % (0-4); Hematocrit 41.8 % (42.0-52.0); Hemoglobin 14.1 g/dl (14.0-18.0); Imm Gran Abs Auto 0.02 X10*3/uL (0.00-0.03); Imm Gran Pct Auto 0.2 % (0.0-0.4); Lymphocytes Percent Auto 68.6 % (20-40); MANUAL DIFF FLAG SCAN; Mean Corpuscular HGB Conc 33.7 g/dl (31.0-36.0); Mean Corpuscular Hemoglobin 30.8 pg (27.0-33.0); Mean Corpuscular Volume 91.3 fL (80.0-98.0); Mean Platelet Volume 11.2 fL (9.4-12.4); Monocytes Absolute Auto 0.6 X10*3/uL (0.1-1.2); Monocytes Percent Auto 5.5 % (2-11); Neutrophils Absolute Auto 2.6 x10*3/uL (2.0-8.3); Neutrophils Percent Auto 23.1 % (45-73); Platelet Count 172 X10*3/uL (160-400); Red Blood Count 4.58 X10*6/uL (4.60-5.80); Red Cell Distribution Width 12.8 % (11.0-16.0); SCAN SMEAR FLAG 1; White Blood Count 11.4 X10*3/uL (4.8-10.8)
[2023-08-11 13:54] LABS: Lymphocytes Absolute Auto 7.8 X10*3/uL (1.2-4.9)
[2023-08-11 14:07] LABS: Alanine Aminotransferase 31 U/L (0-40); Albumin Level 4.3 g/dL (3.5-5.0); Alkaline Phosphatase 41 U/L (39-117); Anion Gap 11 (12-20); Aspartate Amino Transferase 33 U/L (5-37); Bilirubin Total 0.7 mg/dL (0.0-1.0); Blood Urea Nitrogen 23 mg/dL (9-16); Calcium 9.7 mg/dL (8.4-10.2); Carbon Dioxide 28 mmol/L (22-29); Chloride 102 mmol/L (96-108); Cholesterol 170 mg/dL (<200); Estimated Glomerular Filt Rate > 60; Glucose Fasting 95 mg/dL (60-99); HDL Cholesterol 61 mg/dL (>40); LDL Cholesterol Calculated 91 mg/dL (<100); Lactate Dehydrogenase 190 U/L (118-273); Potassium 4.3 mmol/L (3.3-5.1); Sodium 137 mmol/L (135-145); Total Protein 7.1 g/dL (6.5-8.0); Triglycerides 94 mg/dL (<150)
[2023-08-11 14:29] LABS: Prostate Specific Antigen 0.49 ng/mL (<0.05-4.0)
[2023-08-11 14:51] LABS: Erythrocyte Sedimentation Rate 3 MM/HR (0-15)
[2023-08-11 15:36] LABS: SLIDE REVIEW VERIFIED
== END 2023-08-11 11:22 | disposition home or self-care (01) ==
LOC: HO.10HDL 11:21
PROVIDERS: Visit Provider Internal Medicine Medical Oncology
DX: I10 Essential (primary) hypertension (principal); E78.2 Mixed hyperlipidemia; C91.10 Chronic lymphocytic leukemia of B-cell type not having achieved remission; N40.0 Benign prostatic hyperplasia without lower urinary tract symptoms; Z12.5 Encounter for screening for malignant neoplasm of prostate
CPT/HCPCS: 36415; 80053; 80061; 82232; 83615; 84153; 85025; 85652

== ENCOUNTER 2023-12-08 08:44 | Outpatient (REF) | payer MEDICARE, SELFPAY ==
[2023-12-08 11:41] LABS: Basophils Absolute Auto 0.1 X10*3/uL (0.0-0.2); Basophils Percent Auto 0.6 % (0-2); Eosinophils Absolute Auto 0.1 X10*3/uL (0.0-0.4); Eosinophils Percent Auto 1.2 % (0-4); Hematocrit 41.3 % (42.0-52.0); Hemoglobin 14.1 g/dl (14.0-18.0); Imm Gran Abs Auto 0.01 X10*3/uL (0.00-0.03); Imm Gran Pct Auto 0.1 % (0.0-0.4); Lymphocytes Percent Auto 65.9 % (20-40); MANUAL DIFF FLAG SCAN; Mean Corpuscular HGB Conc 34.1 g/dl (31.0-36.0); Mean Corpuscular Hemoglobin 31.8 pg (27.0-33.0); Mean Platelet Volume 10.9 fL (9.4-12.4); Monocytes Absolute Auto 0.7 X10*3/uL (0.1-1.2); Monocytes Percent Auto 6.2 % (2-11); Neutrophils Absolute Auto 2.9 x10*3/uL (2.0-8.3); Platelet Count 153 X10*3/uL (160-400); Red Blood Count 4.44 X10*6/uL (4.60-5.80); Red Cell Distribution Width 11.9 % (11.0-16.0); SCAN SMEAR FLAG 1; White Blood Count 11.1 X10*3/uL (4.8-10.8)
[2023-12-08 11:42] LABS: Lymphocytes Absolute Auto 7.3 X10*3/uL (1.2-4.9)
[2023-12-08 12:22] LABS: SLIDE REVIEW VERIFIED
[2023-12-08 12:27] LABS: Alanine Aminotransferase 31 U/L (0-40); Albumin Level 4.3 g/dL (3.5-5.0); Alkaline Phosphatase 39 U/L (39-117); Anion Gap 10 (12-20); Aspartate Amino Transferase 35 U/L (5-37); Bilirubin Total 0.7 mg/dL (0.0-1.0); Blood Urea Nitrogen 19 mg/dL (9-16); Calcium 9.9 mg/dL (8.4-10.2); Carbon Dioxide 29 mmol/L (22-29); Chloride 101 mmol/L (96-108); Cholesterol 133 mg/dL (<200); Estimated Glomerular Filt Rate > 60; Glucose Fasting 90 mg/dL (60-99); HDL Cholesterol 55 mg/dL (>40); LDL Cholesterol Calculated 59 mg/dL (<100); Potassium 4.1 mmol/L (3.3-5.1); Sodium 136 mmol/L (135-145); Total Protein 6.9 g/dL (6.5-8.0); Triglycerides 97 mg/dL (<150)
== END 2023-12-08 08:45 | disposition home or self-care (01) ==
LOC: HO.10HDL 08:44
PROVIDERS: Visit Provider Internal Medicine Medical Oncology
DX: I10 Essential (primary) hypertension (principal); E78.2 Mixed hyperlipidemia
CPT/HCPCS: 36415; 80053; 80061; 85025

== ENCOUNTER 2024-03-13 09:25 | Outpatient (REF) | payer MEDICARE, SELFPAY ==
[2024-03-13 10:39] LABS: Basophils Absolute Auto 0.1 X10*3/uL (0.0-0.2); Basophils Percent Auto 0.5 % (0-2); Eosinophils Absolute Auto 0.1 X10*3/uL (0.0-0.4); Eosinophils Percent Auto 0.8 % (0-4); Hematocrit 43.3 % (42.0-52.0); Hemoglobin 14.3 g/dl (14.0-18.0); Imm Gran Abs Auto 0.01 X10*3/uL (0.00-0.03); Imm Gran Pct Auto 0.1 % (0.0-0.4); Lymphocytes Percent Auto 64.7 % (20-40); MANUAL DIFF FLAG SCAN; Mean Corpuscular Hemoglobin 31.1 pg (27.0-33.0); Mean Corpuscular Volume 94.1 fL (80.0-98.0); Mean Platelet Volume 10.7 fL (9.4-12.4); Monocytes Percent Auto 7.9 % (2-11); Neutrophils Absolute Auto 3.4 x10*3/uL (2.0-8.3); Platelet Count 154 X10*3/uL (160-400); Red Cell Distribution Width 12.2 % (11.0-16.0); SCAN SMEAR FLAG 1; White Blood Count 12.9 X10*3/uL (4.8-10.8)
[2024-03-13 10:46] LABS: Lymphocytes Absolute Auto 8.4 X10*3/uL (1.2-4.9)
[2024-03-13 11:12] LABS: Alanine Aminotransferase 66 U/L (0-40); Albumin Level 4.4 g/dL (3.5-5.0); Alkaline Phosphatase 47 U/L (39-117); Anion Gap 9 (12-20); Aspartate Amino Transferase 53 U/L (5-37); Bilirubin Total 0.4 mg/dL (0.0-1.0); Blood Urea Nitrogen 19 mg/dL (9-16); Calcium 9.7 mg/dL (8.4-10.2); Carbon Dioxide 30 mmol/L (22-29); Chloride 103 mmol/L (96-108); Cholesterol 140 mg/dL (<200); Estimated Glomerular Filt Rate 59; Glucose Fasting 97 mg/dL (60-99); HDL Cholesterol 61 mg/dL (>40); LDL Cholesterol Calculated 64 mg/dL (<100); Potassium 4.2 mmol/L (3.3-5.1); Sodium 138 mmol/L (135-145); Total Protein 6.9 g/dL (6.5-8.0); Triglycerides 75 mg/dL (<150)
[2024-03-13 11:35] LABS: SLIDE REVIEW VERIFIED
== END 2024-03-13 09:26 | disposition home or self-care (01) ==
LOC: HO.LAB 09:25
PROVIDERS: PCP Internal Medicine Medical Oncology; Visit Provider Internal Medicine Medical Oncology
DX: I10 Essential (primary) hypertension (principal); E78.2 Mixed hyperlipidemia
CPT/HCPCS: 36415; 80053; 80061; 85025

== ENCOUNTER 2024-05-24 10:05 | Outpatient (REF) | payer MEDICARE, SELFPAY ==
--- OUTSIDE RECORDS SUMMARY | 2024-05-24 10:58 | XMS_ITS | Continuity of Care Document ---
Author Organization [facility] Address [address] [place] [address] Care Team Providers Care Drill Foreman Name Role Phone Luis RODRIGUEZ, Hugo Hernandez Primary Care Physician [place] [facility] 04/17/24 - 05/17/24 [facility] [address] [place] [address]- Encounter Type: Triage Allergies, Adverse Reactions, Alerts No Known Allergies Medications Aspirin Tablet 81 mg, By Mouth, Daily, Refills 0, Maintenance, 01/17/24 10:02:00 AM EDT, Partial fill upon patient request if the prescription is for a schedule II opioid drug. Start Date: 01/17/24 Status: Ordered Repeat number: 1 hydrochlorothiazide 25 mg oral tablet 25 mg, 1, tablet, By Mouth, Daily, Refills 0, Maintenance, 09/01/19 10:53:00 AM EDT Start Date: 09/01/19 Status: Ordered Repeat number: 1 lisinopril 10 mg oral tablet 10 mg, 1, tablet, By Mouth, Daily, Refills 0, Maintenance, 09/01/19 10:52:00 AM EDT Start Date: 09/01/19 Status: Ordered Repeat number: 1 metoprolol 25 mg oral tablet, extended release 25 mg, 1, tablet, By Mouth, Daily, # 90 tablet, Refills 3, Tot. Refills 3, Maintenance, 09/28/23 3:06:00 PM EDT, Route to Pharmacy Electronically, [facility]/pharmacy #[id number], Partial fill upon patient requestif the prescription is for a schedule II opioid drug., 179, cm, 09/28/23 14:25:00 EDT, Height Start Date: 09/28/23 Status: Ordered Quantity: 90.0 Unit: tablet Repeat number: 4 Multi-Day Plus Minerals oral tablet 1 tablet, By Mouth, Daily, # 30 tablet, 0 Refills, Maintenance, 03/26/21 9:44:00 AM EST, Tablet, Partial fill upon patient request if the prescription is for a schedule II opioid drug. 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 Dyslipidemia Confirmed Active Hypertension Confirmed Active Patient Care team information Care Team Personnel Name: Hugo Smith MD Position: [facility] Physician - Oncology Member Role: PCP Address: [address] [place] [address] [address] Hugo Smith III, [place] [address] Telecom: Care Team Related Persons Name: LANETTE PACHECO Insurance Providers Guarantor name: HOLGER Health Plan Information #: 1 Payer: MEDICARE PART B OUTPT Member Number: NA Policy Number: NA Group Number: NA Health Plan Information #: 2 Payer: MEDEX Member Number: NA Policy Number: NA Group Number: NA
--- OUTSIDE RECORDS SUMMARY | 2024-05-24 10:58 | XMS_ITS | Continuity of Care Document ---
Author Organization [facility] Address [address] [place] [address] Care Team Providers Care Chronic Condition Nurse Name Role Phone Hugo Smith MD Primary Care Physician [phone] [id number]): [facility] - [facility]18[facility]24 [facility] [address] [place] [address]- Attending Physician: Karlo Sifuentes MD Admitting Physician: Karlo Sifuentes MD Encounter Type: Pre-OutPatient One Time Allergies, Adverse Reactions, Alerts No Known Allergies [...] 3:06:00 PM EDT, Route to Pharmacy Electronically, [facility]/pharmacy #[id number], Partial fill upon patient requestif the prescription [...] Status Health St atus Informant CAD in tribal artery Confirmed Active Dyslipidemia Confirmed Active Hypertension Confirmed Active Patient Care team information Care Team Personnel Name: Hugo Smith MD Position: [facility] Physician - Oncology Member Role: PCP Address: [address] [place] [address] [address] Hugo Smith III, [place] [address]- Telecom: Care Team Related Persons Name: LANETTE PACHECO Insurance Providers Guarantor name: HOLGER Health Plan Information #: 2 Payer: MEDEX Member Number: [id number] Policy Number: NA Group Number: HOLGER Health Plan Information #: 1 Payer: MEDICARE PART B OUTPT Member Number: [id number] Policy Number: HOLGER Group Number: HOLGER"
--- OUTSIDE RECORDS SUMMARY | 2024-05-24 10:58 | XMS_ITS | Continuity of Care Document ---
Author Organization [facility] Address [address] [place] [address] Phone Care Team Providers Care Child Care Leader Name Role Phone Neha RODRIGUEZ, Greyson Unavailable Unavailable Allergies, Adverse Reactions, Alerts Substance Reaction Status Criticality No Known allergies Medications Medication Instructions Dosage Effective Dates (start - stop) Status Comments Aspir-81 81 mg Tab take 1 tablet (81MG) by ORAL route every day - Active Simvastatin 20 mg Tab 1 po qd - Active Procedures Procedure Date Offic/outpt E&m Estab Low-mod 1 Postop F/u Visit Incld Global 1 Offic/outpt E&m New Mod Sever 1 Audelia Tx Rib Fx Uncomp Ea Rad Exam Ribs Unilat; W/pa Yamilet 11 Rad Exam; Calcan Mini 2 Views 1 Rad Exam Shoulder; Complt Mini 11 Arthrocentesis/aspir/inj; Tracie 11 Methylprednisolone Acetate-40 1 Alex Jesús Advance Directives Directive Yes / No Effective Date File Name No Information Encounters Encounter Description Practice Location Reason(s) For Visit Diagnoses Date Provider Providers Copied on Encounter [facility], [address], [place], [place], [id number], [place] tel:[phone] [facility] JESUS No Information 1 Neha Rubi. [address] [facility], [address], [place], [place], [id number] , [place]. tel:[phone] Offic/outpt E&m Estab Low-mod [facility], [address] [facility] [address], [place], [place], [id number], [place] tel:[phone] [facility] left shoulder pain (chief complaint) left sided rib pain (chief complaint) left heel pain (chief complaint) SPRAIN ROTATOR CUFFFRACTURE RIB NOS-CLOSEDCon tusion - Foot 1 Neha Rubi. [address] [facility], [address], [place], [place], [id number] , [place]. tel:[phone] Referring Provider: Greyson Reid, [address] [facility] [address], [place], [address] . tel:[phone] Offic/outpt E&m New Mod Sever [facility], [address] [facility] [address], [place], [place], [id number], [place] tel:[phone] [facility] left rib pain (chief complaint) left heel pain (chief complaint) SPRAIN ROTATOR CUFFFracture, ribContusion of heel 1 Neha Rubi. [address] [facility], [address], [place], [place], [id number] , [place]. tel:[phone] Referring Provider: Greyson Reid, [address] [facility] [address], [place], [address] . tel:[phone] Family History Family Member Type Diagnosis Age At Onset Problem (finding) Family history of Arthr itis Problem (finding) Family history of malignant neoplasm of lung Problem (finding) Family history of hyper tension Problem (finding) Family history of alcoh olism Problem (finding) Family history of Stoma ch Ulcers Payers Payer name Insurance type Covered constitution party ID Authoriza tion(s) [facility] [id number] Social History Type Description Quantity Date Captured Comments Sex Male Smoking Status No Information Chief Complaint And Reason For Visit No Information Reason For Referral Reason For Referral No Information History Of Present Illness Encounter Date Complaint History Of Prese nt Illness No Information Functional Status Date Functional Assessmen t No Information Instructions Date Instruction Additional Infor mation No Information Assessments Type Assessment Date No Information Patient Care Teams Name Effective Dates (start - stop) Status Members No Information
--- OUTSIDE RECORDS SUMMARY | 2024-05-24 10:58 | XMS_ITS | Continuity of Care Document ---
Author Organization [facility] Address [address] [place] [address]- Care Team Providers Care Colorist Dyer Name Role Phone Hugo Smith MD Primary Care Physician Encounter [facility] [place] Date(s): 04/18/24 - 05/18/24 [facility] [address] [place] [address]- Attending Physician: Jose Mcallister Admitting Physician: Jose Mcallister Referring Physician: AdmJose terrazas Encounter Type: Triage Allergies, Adverse Reactions, Alerts [...] 3:06:00 PM EDT, Route to Pharmacy Electronically, [facility]/pharmacy #[id number], Partial fill upon patient requestif the prescription [...] Status Health St atus Informant CAD in redding artery Confirmed Active Dyslipidemia Confirmed Active Hypertension Confirmed Active Cardiology * Event Display: Non BH Cardiovascular Results Authored Date: * Event Display: Non Cardiovascular Results Authored Date: Laboratory * Event Display: Non BH Lab Results Authored Date: * Event Display: Non BH Lab Results Authored Date: * Event Display: Non BH Lab Results Authored Date: Patient Care team information Care Team Personnel Name: Hugo Smith MD Position: [facility] Physician - Oncology Member Role: PCP Address: [address] [place] [address] [address] [place] [address]- Telecom: Care Team Related Persons Name: LANETTE PACHECO Insurance Providers Guarantor name: HOLGER Health Plan Information #: 1 Payer: MEDICARE PART B OUTPT Member Number: NA Policy Number: NA Group Number: NA Health Plan Information #: 2 Payer: MEDEX Member Number: NA Policy Number: NA Group Number: NA
[2024-05-24 13:17] LABS: Basophils Absolute Auto 0.1 X10*3/uL (0.0-0.2); Basophils Percent Auto 0.5 % (0-2); Eosinophils Absolute Auto 0.2 X10*3/uL (0.0-0.4); Eosinophils Percent Auto 1.5 % (0-4); Hematocrit 40.8 % (42.0-52.0); Hemoglobin 13.6 g/dl (14.0-18.0); Imm Gran Abs Auto 0.02 X10*3/uL (0.00-0.03); Imm Gran Pct Auto 0.2 % (0.0-0.4); Lymphocytes Absolute Auto 8.9 X10*3/uL (1.2-4.9); Lymphocytes Percent Auto 68.5 % (20-40); MANUAL DIFF FLAG SCAN; Mean Corpuscular HGB Conc 33.3 g/dl (31.0-36.0); Mean Corpuscular Hemoglobin 31.1 pg (27.0-33.0); Mean Corpuscular Volume 93.4 fL (80.0-98.0); Mean Platelet Volume 10.9 fL (9.4-12.4); Monocytes Absolute Auto 0.6 X10*3/uL (0.1-1.2); Monocytes Percent Auto 4.9 % (2-11); Neutrophils Absolute Auto 3.2 x10*3/uL (2.0-8.3); Neutrophils Percent Auto 24.4 % (45-73); Platelet Count 137 X10*3/uL (160-400); Red Blood Count 4.37 X10*6/uL (4.60-5.80); Red Cell Distribution Width 12.4 % (11.0-16.0); SCAN SMEAR FLAG 1
[2024-05-24 13:35] LABS: SLIDE REVIEW VERIFIED
[2024-05-24 14:02] LABS: Albumin Level 4.4 g/dL (3.5-5.0); Alkaline Phosphatase 47 U/L (39-117); Anion Gap 9 (12-20); Aspartate Amino Transferase 42 U/L (5-37); Bilirubin Total 0.6 mg/dL (0.0-1.0); Blood Urea Nitrogen 16 mg/dL (9-16); Calcium 9.1 mg/dL (8.4-10.2); Carbon Dioxide 27 mmol/L (22-29); Chloride 108 mmol/L (96-108); Cholesterol 151 mg/dL (<200); Estimated Glomerular Filt Rate > 60; Glucose Fasting 96 mg/dL (60-99); HDL Cholesterol 53 mg/dL (>40); LDL Cholesterol Calculated 76 mg/dL (<100); Potassium 5.1 mmol/L (3.3-5.1); Sodium 139 mmol/L (135-145); Total Protein 7.4 g/dL (6.5-8.0); Triglycerides 114 mg/dL (<150)
[2024-05-24 14:15] LABS: Alanine Aminotransferase 47 U/L (0-40)
== END 2024-05-24 10:06 | disposition home or self-care (01) ==
LOC: HO.10HDL 10:05
PROVIDERS: Visit Provider Internal Medicine Medical Oncology
DX: I10 Essential (primary) hypertension (principal); E78.2 Mixed hyperlipidemia
CPT/HCPCS: 36415; 80053; 80061; 85025

== ENCOUNTER 2024-07-25 13:12 | Outpatient (REF) | payer MEDICARE, SELFPAY ==
--- OUTSIDE RECORDS SUMMARY | 2024-07-25 16:06 | XMS_ITS | Patient Health Record ---
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 Name Role Phone Hugo Smith Primary Care Provider Allergies Allergen (clinical drug ingredient) Drug/Non Drug Allergy documented on EMR Reaction Allergy Type Onset Date Status No Known Drug Allergy Unknown Drug Allergy Active Results Component Value Reference Range Notes URINE DIP STICK Reviewed date:08/17/2023 11:07:20 AM Interpretation: Performing Lab: Notes/Report: SG 1.015 1.005 - 1.025 pH 7.5 5.0 - 9.0 BETO Negative Negative - NIT Negative Negative - PRO 15 Negative - Trace GLU Negative Negative - KET Negative Negative - UBG 0.2 0.1 - 1.8 ANJU Negative 0.2 - 1.3 BLD Positive Negative - Creatinine GFR POC Reviewed date:08/06/2023 03:21:38 PM Interpretation: Performing Lab:[facility], [address] [place] [phone] Notes/Report: [id number] 0.68 >60 1116 HO.DIAZAAR Creatinine POC 0.7 0.5-1.4 mg/dL GFR POC > 60 Chronic Kidney Disease: Estimated GFR < 60 mL/min/1.73m2 Severe Kidney Disease: Estimated GFR < 15 mL/min/1.73m2 CT chest w con Reviewed date:08/13/2023 08:44:42 PM Interpretation: Performing Lab: Notes/Report: [address] [address] [address] Scan Report Signed Patient: Henrique Amaro MR#: [id number] : 1950 Acct:[id number] Age/Sex: 72 / M ADM Date: 08/04/23 Loc: HO.CT Attending Dr: Hugo Smith MD Ordering Physician: Hugo Smith MD Date of Service: 08/04/23 Procedure(s): CT chest w IV con Accession Number(s): [id number] cc: Hugo Smith MD EXAMINATION: CT CHEST WITH CONTRAST CLINICAL INFORMATION: Former smoker. COMPARISON: Prior CT examinations, most recently 12/16/2020. TECHNIQUE: Multidetector volumetric CT imaging of the chest was obtained after the administration of 65 mL of Omnipaque 350 intravenous contrast without immediate adverse reactions. Axial MIP volume rendering provided. Sagittal and coronal reformatted images were obtained. This CT examination was performed using dose optimization techniques as appropriate, variously including the following: *Automated exposure control *Adjustment of mA and/or kV according to patient size (this includes techniques or standardized protocols for targeted exams where dose is matched to indication/reason for exam; i.e. extremities or head) *Use of iterative reconstruction technique DLP: 127 mGy-cm FINDINGS: ELECTRONIC ENGRAVER: The lungs are symmetrically well-expanded and grossly clear. LUNGS: A 1 mm noncalcified nodule is seen at the anterior left apex (5:36). This is stable from 12/16/2020 (5:34), and it is considered benign. There is a benign, stable calcified granuloma within the apicoposterior segment of the left upper lobe (5:71). No new nodule, mass, infiltrate or groundglass opacity is seen. There is mild dependent hypoaeration. No small airway thickening is seen. The central airways appear patent. MEDIASTINUM: The thyroid is unremarkable. There is no thoracic aortic aneurysm or dissection. There are very mild atherosclerotic calcifications of the great vessel origins and thoracic aorta. There are moderate coronary artery atherosclerotic calcifications. There are shotty, nonpathologically enlarged mediastinal lymph nodes. No sizable mediastinal or hilar lymphadenopathy is seen. PLEURA: There is no pleural effusion. No pleural mass or thickening. AXILLA: No lymphadenopathy. UPPER ABDOMEN: The bilateral adrenal glands are unremarkable. Previously described enhancing benign hepatic hemangiomas are redemonstrated. OSSEOUS STRUCTURES: There is multi-level mid and lower thoracic spondylosis and Schmorl's node formation. No acute or aggressive osseous finding is noted. CT/CT chest w IV con IMPRESSION: 1. There is are benign, stable tiny noncalcified and calcified left upper lobe nodules, unchanged from prior CT examinations including 12/16/2020. 2. No new nodule, mass, infiltrate or groundglass opacity is seen. 3. There is no thoracic lymphadenopathy or pleural effusion. 4. No aggressive osseous lesion is seen. 5. There are stable benign hepatic hemangiomas. Fleischner guidelines were followed. Dictated By: Luigi Wills MD Signed By: <Electronically signed by Luigi Wills MD in OV> 08/12/23 1435 DD/ 1148 TD/TT: Material Handler 2Nd Shift: [address] [address] [address] Scan Report Signed Patient: Jovana Amaro MR#: [id number] : 1950 Acct:[id number] Age/Sex: 72 / M ADM Date: 08/04/23 Loc: HO.CT Attending Dr: Hugo Smith MD Ordering Physician: Hugo Smith MD Date of Service: 08/04/23 Procedure(s): CT [address] w IV con Accession Number(s): [id number] cc: Hugo Smith MD EXAMINATION: CT CHEST WITH CONTRAST CLINICAL INFORMATION: Former smoker. COMPARISON: Prior CT examination s, most recently 12/16/2020. TECHNIQUE: Multidetector volume tric CT imaging of the chest was obtained after the administration of 65 mL of Omnipaque 350 intravenous contrast without immediate adverse reactions. Axial MIP volume rendering provided. Sagittal and coronal reformatted images were obtained. This CT examination was performed using dose optimization techniques as appropriate, various ly including the following: *Automated exposure control *Adjustment of mA an d/or kV according to patient size (this includes techniques or standardized protocols for targeted exams where dose is matched to indication/reason for exam; i.e. extremities or head) *Use of iterative reconstruction technique DLP: 127 mGy-cm FINDINGS: ELECTRONIC ENGRAVER: The lungs are symmetrically well-expanded and grossly clear. LUNGS: A 1 mm noncalcified nodule is seen at the anterior left apex (5:36). This is stab le from 12/16/2020 (5:34), and it is considered benign. There is a benign, stable calcified granuloma within the apicoposterior segme nt of the left upper lobe (5:71). No new nodule, mass, infiltrate or groundglass opacity is seen. There is mild dependent hypoaeration. No small airway thickening is seen. The central airways appear patent. MEDIASTINUM: The thy roid is unremarkable. There is no thoracic aortic aneurysm or dissection. There are very mild atherosclerotic calcifications of the great vessel origins and thoracic aorta. There are moderate coronary artery atherosclerotic calcifications. There are shotty, nonpathologically enlarged mediastinal lymph nodes. No sizable mediastin al or hilar lymphadenopathy is seen. PLEURA: There is no pleural effusion. No pleural mass or thickening. AXILLA: No lymphadenopathy. UPPER ABDOMEN: The bilateral adrenal glands are unremarkable. Previously described enhancing benign hepatic hemangiomas are redemonstrated. OSSEOUS STRUCTURES: There is multi-level mid and lower thoracic spondylosis and Schm orl's node formation. No acute or aggressive osseous finding is noted. C T/CT chest w IV con IMPRESSION: 1. There is are bahman gn, stable tiny noncalcified and calcified left upper lobe nodules, unchanged from prior CT examinations including 12/16/2020. 2. No new nodule, ma ss, infiltrate or groundglass opacity is seen. 3. There is no thora cic lymphadenopathy or pleural effusion. 4. No aggressive oss eous lesion is seen. 5. There are stable benign hepatic hemangiomas. Fleischner guideline s were followed. Dictated By: Devan Wills MD Signed By: <Electronically signed by Luigi Wills MD in OV> 08/12/23 1435 DD/ 1148 TD/TT: [employer] ist: MARLYS Complete Blood Count Auto Di ff Reviewed date:08/13/2023 08:44:42 PM Interpretation: Performing Lab:[facility], [address] [place] [phone] Notes/Report: White Blood Count 11.4 4.8-10.8 X10*3/uL Red Blood Count 4.58 4.60-5.80 X10*6/uL Hemoglobin 14.1 14.0-18.0 g/dl Hematocrit 41.8 42.0-52.0 % Mean Corpuscular Volume 91.3 80.0-98.0 fL Mean Corpuscular Hemoglobin 30.8 27.0-33.0 pg Mean Corpuscular HGB Conc 33.7 31.0-36.0 g/dl Red Cell Distribution Width 12.8 11.0-16.0 % Platelet Count 172 160-400 X10*3/uL Mean Platelet Volume 11.2 9.4-12.4 fL Neutrophils Percent Auto 23.1 45-73 % Imm Gran Pct Auto 0.2 0.0-0.4 % Lymphocytes Percent Auto 68.6 20-40 % Monocytes Percent Auto 5.5 2-11 % Eosinophils Percent Auto 1.8 0-4 % Basophils Percent Auto 0.8 0-2 % NRBC Pct Auto 0.0 0.0-0.2 /100WBC Neutrophils Absolute Auto 2.6 2.0-8.3 x10*3/u L Imm Gran Abs Auto 0.02 0.00-0.03 X10*3/uL Lymphocytes Absolute Auto 7.8 1.2-4.9 X10*3/u L Monocytes Absolute Auto 0.6 0.1-1.2 X10*3/uL Eosinophils Absolute Auto 0.2 0.0-0.4 X10*3/u L Basophils Absolute Auto 0.1 0.0-0.2 X10*3/uL NRBC Abs Auto 0.000 0.0-0.012 X10*3/uL White Blood Count 11.4 4.8-10.8 X10*3/uL Red Blood Count 4.58 4.60-5.80 X10*6/uL Hemoglobin 14.1 14.0-18.0 g/dl Hematocrit 41.8 42.0-52.0 % Mean Corpuscular Volume 91.3 80.0-98.0 fL Mean Corpuscular Hemoglobin 30.8 27.0-33.0 pg Mean Corpuscular HGB Conc 33.7 31.0-36.0 g/dl Red Cell Distribution Width 12.8 11.0-16.0 % Platelet Count 172 160-400 X10*3/uL Mean Platelet Volume 11.2 9.4-12.4 fL Neutrophils Percent Auto 23.1 45-73 % Imm Gran Pct Auto 0.2 0.0-0.4 % Lymphocytes Percent Auto 68.6 20-40 % Monocytes Percent Auto 5.5 2-11 % Eosinophils Percent Auto 1.8 0-4 % Basophils Percent Auto 0.8 0-2 % NRBC Pct Auto 0.0 0.0-0.2 /100WBC Neutrophils Absolute Auto 2.6 2.0-8.3 x10*3/u L Imm Gran Abs Auto 0.02 0.00-0.03 X10*3/uL Lymphocytes Absolute Auto 7.8 1.2-4.9 X10*3/u L Monocytes Absolute Auto 0.6 0.1-1.2 X10*3/uL Eosinophils Absolute Auto 0.2 0.0-0.4 X10*3/u L Basophils Absolute Auto 0.1 0.0-0.2 X10*3/uL NRBC Abs Auto 0.000 0.0-0.012 X10*3/uL COR RECTED REPORT COR RECTED REPORT Erythrocyte Sedimentation Ra te Reviewed date:08/13/2023 08:44:42 PM Interpretation: Performing Lab:[facility], [address] [place] [phone] Notes/Report: Erythrocyte Sedimentation Rate 3 0-15 MM/HR Patients with polycythemia and many hemoglobin abnormalities may have depressed sed rates whereas patients with anemia may have elevated sed rates. [facility] [place]. Panel Fa st Reviewed date:08/13/2023 08:44:42 PM Interpretation: Performing Lab:[facility], [address] [place] [phone] Notes/Report: Sodium 137 135-145 mmol/L Potassium 4.3 3.3-5.1 mmol/L Chloride 102 96-108 mmol/L Carbon Dioxide 28 22-29 mmol/L Anion Gap 11 12-20 Blood Urea Nitrogen 23 9-16 mg/dL Creatinine 1.12 0.5-1.4 mg/dL Estimated Glomerular Filt Rate > 60 NOTE: For -Cymro individuals, multiply the result by 1.210. Chronic Kidney Disease: Estimated GFR < 60 mL/min/1.73m2 Severe Kidney Disease: Estimated GFR < 15 mL/min/1.73m2 Glucose Fasting 95 60-99 mg/dL Calcium 9.7 8.4-10.2 mg/dL Bilirubin Total 0.7 0.0-1.0 mg/dL Aspartate Amino Transferase 33 5-37 U/L Alanine Aminotransferase 31 0-40 U/L Total Protein 7.1 6.5-8.0 g/dL Albumin Level 4.3 3.5-5.0 g/dL Alkaline Phosphatase 41 39-117 U/L Lactate Dehydrogenase Reviewed date:08/13/2023 08:44:42 PM Interpretation: Performing Lab:[facility], [address] [place] [phone] Notes/Report: Lactate Dehydrogenase 190 118-273 U/L Lipid Panel Reviewed date:08/13/2023 08:44:42 PM Interpretation: Performing Lab:[facility], [address] [place] [phone] Notes/Report: Triglycerides 94 <150 mg/dL Desirable Triglyceride: less than 150 mg/dL Borderline High Triglyceride 150-199 mg/dL High Triglyceride: 200-499 mg/dL Very High Triglyceride: greater than or equal to 5OO mg/dL Cholesterol 170 <200 mg/dL Desirable Cholesterol: less than 200 mg/dL Borderline High Cholesterol: 200-239 mg/dL High Cholesterol: greater than 239 mg/dL LDL Cholesterol Calculated 91 <100 mg/dL Desirable LDL: less than 100 mg/dL Near Optimal/Above Optimal LDL: 110-129 mg/dL Borderline High LDL: 130-159 mg/dL High LDL: 160-189 mg/dL Very High LDL: greater than or equal to 190 mg/dL HDL Cholesterol 61 >40 mg/dL Desirable HDL: greater than 40 mg/dL Note: This HDL assay may give artificially low results in patients with liver disease. Prostate Specific Antigen Reviewed date:08/13/2023 08:44:42 PM Interpretation: Performing Lab:[facility], [address] [place] [phone] Notes/Report: Prostate Specific Antigen 0.49 <0.05-4.0 ng/mL PSA methodology: Lou Alinity i Chemiluminescent Microparticle Immunoassay (CMIA) Beta-2 Microglobulin, Serum Reviewed date:08/13/2023 08:44:42 PM Interpretation: Performing Lab:[facility], [address] [place] [phone] Notes/Report: Beta-2 Microglobulin, Serum 2.20 < OR = 2.51 mg/L THIS TEST WAS PERFORMED AT: [facility] [address] [place] [phone] GLORIA PACHECO MD SLIDE REVIEW Reviewed date:08/13/2023 08:44:42 PM Interpretation: Performing Lab:[facility], [address] [place] [phone] Notes/Report: SLIDE REVIEW VERIFIED Complete Blood Count Auto Di ff Reviewed date:12/17/2023 01:29:23 PM Interpretation: Performing Lab:[facility], [address] [place] [phone] Notes/Report: White Blood Count 11.1 4.8-10.8 X10*3/uL Red Blood Count 4.44 4.60-5.80 X10*6/uL Hemoglobin 14.1 14.0-18.0 g/dl Hematocrit 41.3 42.0-52.0 % Mean Corpuscular Volume 93.0 80.0-98.0 fL Mean Corpuscular Hemoglobin 31.8 27.0-33.0 pg Mean Corpuscular HGB Conc 34.1 31.0-36.0 g/dl Red Cell Distribution Width 11.9 11.0-16.0 % Platelet Count 153 160-400 X10*3/uL Mean Platelet Volume 10.9 9.4-12.4 fL Neutrophils Percent Auto 26.0 45-73 % Imm Gran Pct Auto 0.1 0.0-0.4 % Lymphocytes Percent Auto 65.9 20-40 % Monocytes Percent Auto 6.2 2-11 % Eosinophils Percent Auto 1.2 0-4 % Basophils Percent Auto 0.6 0-2 % NRBC Pct Auto 0.0 0.0-0.2 /100WBC Neutrophils Absolute Auto 2.9 2.0-8.3 x10*3/u L Imm Gran Abs Auto 0.01 0.00-0.03 X10*3/uL Lymphocytes Absolute Auto 7.3 1.2-4.9 X10*3/u L Monocytes Absolute Auto 0.7 0.1-1.2 X10*3/uL Eosinophils Absolute Auto 0.1 0.0-0.4 X10*3/u L Basophils Absolute Auto 0.1 0.0-0.2 X10*3/uL NRBC Abs Auto 0.000 0.0-0.012 X10*3/uL White Blood Count 11.1 4.8-10.8 X10*3/uL Red Blood Count 4.44 4.60-5.80 X10*6/uL Hemoglobin 14.1 14.0-18.0 g/dl Hematocrit 41.3 42.0-52.0 % Mean Corpuscular Volume 93.0 80.0-98.0 fL Mean Corpuscular Hemoglobin 31.8 27.0-33.0 pg Mean Corpuscular HGB Conc 34.1 31.0-36.0 g/dl Red Cell Distribution Width 11.9 11.0-16.0 % Platelet Count 153 160-400 X10*3/uL Mean Platelet Volume 10.9 9.4-12.4 fL Neutrophils Percent Auto 26.0 45-73 % Imm Gran Pct Auto 0.1 0.0-0.4 % Lymphocytes Percent Auto 65.9 20-40 % Monocytes Percent Auto 6.2 2-11 % Eosinophils Percent Auto 1.2 0-4 % Basophils Percent Auto 0.6 0-2 % NRBC Pct Auto 0.0 0.0-0.2 /100WBC Neutrophils Absolute Auto 2.9 2.0-8.3 x10*3/u L Imm Gran Abs Auto 0.01 0.00-0.03 X10*3/uL Lymphocytes Absolute Auto 7.3 1.2-4.9 X10*3/u L Monocytes Absolute Auto 0.7 0.1-1.2 X10*3/uL Eosinophils Absolute Auto 0.1 0.0-0.4 X10*3/u L Basophils Absolute Auto 0.1 0.0-0.2 X10*3/uL NRBC Abs Auto 0.000 0.0-0.012 X10*3/uL COR RECTED REPORT COR RECTED REPORT Comprehensive [place]. Panel Fa st Reviewed date:12/17/2023 01:29:23 PM Interpretation: Performing Lab:[facility], [address] [place] [phone] Notes/Report: Sodium 136 135-145 mmol/L Potassium 4.1 3.3-5.1 mmol/L Chloride 101 96-108 mmol/L Carbon Dioxide 29 22-29 mmol/L Anion Gap 10 12-20 Blood Urea Nitrogen 19 9-16 mg/dL Creatinine 1.13 0.5-1.4 mg/dL Estimated Glomerular Filt Rate > 60 NOTE: For -Cymro individuals, multiply the result by 1.210. Chronic Kidney Disease: Estimated GFR < 60 mL/min/1.73m2 Severe Kidney Disease: Estimated GFR < 15 mL/min/1.73m2 Glucose Fasting 90 60-99 mg/dL Calcium 9.9 8.4-10.2 mg/dL Bilirubin Total 0.7 0.0-1.0 mg/dL Aspartate Amino Transferase 35 5-37 U/L Alanine Aminotransferase 31 0-40 U/L Total Protein 6.9 6.5-8.0 g/dL Albumin Level 4.3 3.5-5.0 g/dL Alkaline Phosphatase 39 39-117 U/L Lipid Panel Reviewed date:12/17/2023 01:29:23 PM Interpretation: Performing Lab:[facility], [address] [place] [phone] Notes/Report: Triglycerides 97 <150 mg/dL Desirable Triglyceride: less than 150 mg/dL Borderline High Triglyceride 150-199 mg/dL High Triglyceride: 200-499 mg/dL Very High Triglyceride: greater than or equal to 5OO mg/dL Cholesterol 133 <200 mg/dL Desirable Cholesterol: less than 200 mg/dL Borderline High Cholesterol: 200-239 mg/dL High Cholesterol: greater than 239 mg/dL LDL Cholesterol Calculated 59 <100 mg/dL Desirable LDL: less than 100 mg/dL Near Optimal/Above Optimal LDL: 110-129 mg/dL Borderline High LDL: 130-159 mg/dL High LDL: 160-189 mg/dL Very High LDL: greater than or equal to 190 mg/dL HDL Cholesterol 55 >40 mg/dL Desirable HDL: greater than 40 mg/dL Note: This HDL assay may give artificially low results in patients with liver disease. SLIDE REVIEW Reviewed date:12/17/2023 01:29:23 PM Interpretation: Performing Lab:[facility], [address] [place] [phone] Notes/Report: SLIDE REVIEW VERIFIED Complete Blood Count Auto Di ff Reviewed date:03/28/2024 05:40:08 AM Interpretation: Performing Lab:[facility], [address] [place] [phone] Notes/Report: White Blood Count 12.9 4.8-10.8 X10*3/uL Red Blood Count 4.60 4.60-5.80 X10*6/uL Hemoglobin 14.3 14.0-18.0 g/dl Hematocrit 43.3 42.0-52.0 % Mean Corpuscular Volume 94.1 80.0-98.0 fL Mean Corpuscular Hemoglobin 31.1 27.0-33.0 pg Mean Corpuscular HGB Conc 33.0 31.0-36.0 g/dl Red Cell Distribution Width 12.2 11.0-16.0 % Platelet Count 154 160-400 X10*3/uL Mean Platelet Volume 10.7 9.4-12.4 fL Neutrophils Percent Auto 26.0 45-73 % Imm Gran Pct Auto 0.1 0.0-0.4 % Lymphocytes Percent Auto 64.7 20-40 % Monocytes Percent Auto 7.9 2-11 % Eosinophils Percent Auto 0.8 0-4 % Basophils Percent Auto 0.5 0-2 % NRBC Pct Auto 0.0 0.0-0.2 /100WBC Neutrophils Absolute Auto 3.4 2.0-8.3 x10*3/u L Imm Gran Abs Auto 0.01 0.00-0.03 X10*3/uL Lymphocytes Absolute Auto 8.4 1.2-4.9 X10*3/u L Monocytes Absolute Auto 1.0 0.1-1.2 X10*3/uL Eosinophils Absolute Auto 0.1 0.0-0.4 X10*3/u L Basophils Absolute Auto 0.1 0.0-0.2 X10*3/uL NRBC Abs Auto 0.000 0.0-0.012 X10*3/uL White Blood Count 12.9 4.8-10.8 X10*3/uL Red Blood Count 4.60 4.60-5.80 X10*6/uL Hemoglobin 14.3 14.0-18.0 g/dl Hematocrit 43.3 42.0-52.0 % Mean Corpuscular Volume 94.1 80.0-98.0 fL Mean Corpuscular Hemoglobin 31.1 27.0-33.0 pg Mean Corpuscular HGB Conc 33.0 31.0-36.0 g/dl Red Cell Distribution Width 12.2 11.0-16.0 % Platelet Count 154 160-400 X10*3/uL Mean Platelet Volume 10.7 9.4-12.4 fL Neutrophils Percent Auto 26.0 45-73 % Imm Gran Pct Auto 0.1 0.0-0.4 % Lymphocytes Percent Auto 64.7 20-40 % Monocytes Percent Auto 7.9 2-11 % Eosinophils Percent Auto 0.8 0-4 % Basophils Percent Auto 0.5 0-2 % NRBC Pct Auto 0.0 0.0-0.2 /100WBC Neutrophils Absolute Auto 3.4 2.0-8.3 x10*3/u L Imm Gran Abs Auto 0.01 0.00-0.03 X10*3/uL Lymphocytes Absolute Auto 8.4 1.2-4.9 X10*3/u L Monocytes Absolute Auto 1.0 0.1-1.2 X10*3/uL Eosinophils Absolute Auto 0.1 0.0-0.4 X10*3/u L Basophils Absolute Auto 0.1 0.0-0.2 X10*3/uL NRBC Abs Auto 0.000 0.0-0.012 X10*3/uL White Blood Count 12.9 4.8-10.8 X10*3/uL Red Blood Count 4.60 4.60-5.80 X10*6/uL Hemoglobin 14.3 14.0-18.0 g/dl Hematocrit 43.3 42.0-52.0 % Mean Corpuscular Volume 94.1 80.0-98.0 fL Mean Corpuscular Hemoglobin 31.1 27.0-33.0 pg Mean Corpuscular HGB Conc 33.0 31.0-36.0 g/dl Red Cell Distribution Width 12.2 11.0-16.0 % Platelet Count 154 160-400 X10*3/uL Mean Platelet Volume 10.7 9.4-12.4 fL Neutrophils Percent Auto 26.0 45-73 % Imm Gran Pct Auto 0.1 0.0-0.4 % Lymphocytes Percent Auto 64.7 20-40 % Monocytes Percent Auto 7.9 2-11 % Eosinophils Percent Auto 0.8 0-4 % Basophils Percent Auto 0.5 0-2 % NRBC Pct Auto 0.0 0.0-0.2 /100WBC Neutrophils Absolute Auto 3.4 2.0-8.3 x10*3/u L Imm Gran Abs Auto 0.01 0.00-0.03 X10*3/uL Lymphocytes Absolute Auto 8.4 1.2-4.9 X10*3/u L Monocytes Absolute Auto 1.0 0.1-1.2 X10*3/uL Eosinophils Absolute Auto 0.1 0.0-0.4 X10*3/u L Basophils Absolute Auto 0.1 0.0-0.2 X10*3/uL NRBC Abs Auto 0.000 0.0-0.012 X10*3/uL COR RECTED REPORT COR RECTED REPORT COR RECTED REPORT Pathologist Review - CBC Reviewed date:03/28/2024 05:40:08 AM Interpretation: Performing Lab:[facility], [address] [place] [phone] Notes/Report: Pathologist Review - CBC SEE NOTE Lymphocytes are increased in number and somewhat monotonous appearing; smudge cells are seen. The patient's reported history of CLL is noted. - Kyle Ramirez M.D. Pathology Comprehensive [place]. Panel Fa st Reviewed date:03/28/2024 05:40:08 AM Interpretation: Performing Lab:[facility], [address] [place] [phone] Notes/Report: Sodium 138 135-145 mmol/L Potassium 4.2 3.3-5.1 mmol/L Chloride 103 96-108 mmol/L Carbon Dioxide 30 22-29 mmol/L Anion Gap 9 12-20 Blood Urea Nitrogen 19 9-16 mg/dL Creatinine 1.21 0.5-1.4 mg/dL Estimated Glomerular Filt Rate 59 Chronic Kidney Disease: Estimated GFR < 60 mL/min/1.73m2 Severe Kidney Disease: Estimated GFR < 15 mL/min/1.73m2 Glucose Fasting 97 60-99 mg/dL Calcium 9.7 8.4-10.2 mg/dL Bilirubin Total 0.4 0.0-1.0 mg/dL Aspartate Amino Transferase 53 5-37 U/L Alanine Aminotransferase 66 0-40 U/L Total Protein 6.9 6.5-8.0 g/dL Albumin Level 4.4 3.5-5.0 g/dL Alkaline Phosphatase 47 39-117 U/L Lipid Panel Reviewed date:03/28/2024 05:40:08 AM Interpretation: Performing Lab:[facility], [address] [place] [phone] Notes/Report: Triglycerides 75 <150 mg/dL Desirable Triglyceride: less than 150 mg/dL Borderline High Triglyceride 150-199 mg/dL High Triglyceride: 200-499 mg/dL Very High Triglyceride: greater than or equal to 5OO mg/dL Cholesterol 140 <200 mg/dL Desirable Cholesterol: less than 200 mg/dL Borderline High Cholesterol: 200-239 mg/dL High Cholesterol: greater than 239 mg/dL LDL Cholesterol Calculated 64 <100 mg/dL Desirable LDL: less than 100 mg/dL Near Optimal/Above Optimal LDL: 110-129 mg/dL Borderline High LDL: 130-159 mg/dL High LDL: 160-189 mg/dL Very High LDL: greater than or equal to 190 mg/dL HDL Cholesterol 61 >40 mg/dL Desirable HDL: greater than 40 mg/dL Note: This HDL assay may give artificially low results in patients with liver disease. SLIDE REVIEW Reviewed date:03/28/2024 05:40:08 AM Interpretation: Performing Lab:[facility], [address] [place] [phone] Notes/Report: SLIDE REVIEW VERIFIED Complete Blood Count Auto Di ff Reviewed date:05/26/2024 08:58:25 AM Interpretation: Performing Lab:[facility], [address] [place] [phone] Notes/Report: White Blood Count 13.0 4.8-10.8 X10*3/uL Red Blood Count 4.37 4.60-5.80 X10*6/uL Hemoglobin 13.6 14.0-18.0 g/dl Hematocrit 40.8 42.0-52.0 % Mean Corpuscular Volume 93.4 80.0-98.0 fL Mean Corpuscular Hemoglobin 31.1 27.0-33.0 pg Mean Corpuscular HGB Conc 33.3 31.0-36.0 g/dl Red Cell Distribution Width 12.4 11.0-16.0 % Platelet Count 137 160-400 X10*3/uL Mean Platelet Volume 10.9 9.4-12.4 fL Neutrophils Percent Auto 24.4 45-73 % Imm Gran Pct Auto 0.2 0.0-0.4 % Lymphocytes Percent Auto 68.5 20-40 % Monocytes Percent Auto 4.9 2-11 % Eosinophils Percent Auto 1.5 0-4 % Basophils Percent Auto 0.5 0-2 % NRBC Pct Auto 0.0 0.0-0.2 /100WBC Neutrophils Absolute Auto 3.2 2.0-8.3 x10*3/u L Imm Gran Abs Auto 0.02 0.00-0.03 X10*3/uL Lymphocytes Absolute Auto 8.9 1.2-4.9 X10*3/u L Monocytes Absolute Auto 0.6 0.1-1.2 X10*3/uL Eosinophils Absolute Auto 0.2 0.0-0.4 X10*3/u L Basophils Absolute Auto 0.1 0.0-0.2 X10*3/uL NRBC Abs Auto 0.000 0.0-0.012 X10*3/uL White Blood Count 13.0 4.8-10.8 X10*3/uL Red Blood Count 4.37 4.60-5.80 X10*6/uL Hemoglobin 13.6 14.0-18.0 g/dl Hematocrit 40.8 42.0-52.0 % Mean Corpuscular Volume 93.4 80.0-98.0 fL Mean Corpuscular Hemoglobin 31.1 27.0-33.0 pg Mean Corpuscular HGB Conc 33.3 31.0-36.0 g/dl Red Cell Distribution Width 12.4 11.0-16.0 % Platelet Count 137 160-400 X10*3/uL Mean Platelet Volume 10.9 9.4-12.4 fL Neutrophils Percent Auto 24.4 45-73 % Imm Gran Pct Auto 0.2 0.0-0.4 % Lymphocytes Percent Auto 68.5 20-40 % Monocytes Percent Auto 4.9 2-11 % Eosinophils Percent Auto 1.5 0-4 % Basophils Percent Auto 0.5 0-2 % NRBC Pct Auto 0.0 0.0-0.2 /100WBC Neutrophils Absolute Auto 3.2 2.0-8.3 x10*3/u L Imm Gran Abs Auto 0.02 0.00-0.03 X10*3/uL Lymphocytes Absolute Auto 8.9 1.2-4.9 X10*3/u L Monocytes Absolute Auto 0.6 0.1-1.2 X10*3/uL Eosinophils Absolute Auto 0.2 0.0-0.4 X10*3/u L Basophils Absolute Auto 0.1 0.0-0.2 X10*3/uL NRBC Abs Auto 0.000 0.0-0.012 X10*3/uL COR RECTED REPORT COR RECTED REPORT Comprehensive [place]. Panel Fa st Reviewed date:05/26/2024 08:58:25 AM Interpretation: Performing Lab:[facility], [address] [place] [id number] Notes/Report: Sodium 139 135-145 mmol/L Potassium 5.1 3.3-5.1 mmol/L Chloride 108 96-108 mmol/L Carbon Dioxide 27 22-29 mmol/L Anion Gap 9 12-20 Blood Urea Nitrogen 16 9-16 mg/dL Creatinine 1.13 0.5-1.4 mg/dL Estimated Glomerular Filt Rate > 60 Chronic Kidney Disease: Estimated GFR < 60 mL/min/1.73m2 Severe Kidney Disease: Estimated GFR < 15 mL/min/1.73m2 Glucose Fasting 96 60-99 mg/dL Calcium 9.1 8.4-10.2 mg/dL Bilirubin Total 0.6 0.0-1.0 mg/dL Aspartate Amino Transferase 42 5-37 U/L Alanine Aminotransferase 47 0-40 U/L Total Protein 7.4 6.5-8.0 g/dL Albumin Level 4.4 3.5-5.0 g/dL Alkaline Phosphatase 47 39-117 U/L Lipid Panel Reviewed date:05/26/2024 08:57:50 AM Interpretation: Performing Lab:[facility], [address] [place] [phone] Notes/Report: Triglycerides 114 <150 mg/dL Desirable Triglyceride: less than 150 mg/dL Borderline High Triglyceride 150-199 mg/dL High Triglyceride: 200-499 mg/dL Very High Triglyceride: greater than or equal to 5OO mg/dL Cholesterol 151 <200 mg/dL Desirable Cholesterol: less than 200 mg/dL Borderline High Cholesterol: 200-239 mg/dL High Cholesterol: greater than 239 mg/dL LDL Cholesterol Calculated 76 <100 mg/dL Desirable LDL: less than 100 mg/dL Near Optimal/Above Optimal LDL: 110-129 mg/dL Borderline High LDL: 130-159 mg/dL High LDL: 160-189 mg/dL Very High LDL: greater than or equal to 190 mg/dL HDL Cholesterol 53 >40 mg/dL Desirable HDL: greater than 40 mg/dL Note: This HDL assay may give artificially low results in patients with liver disease. SLIDE REVIEW Reviewed date:05/26/2024 08:58:25 AM Interpretation: Performing Lab:[facility], [address] [place] [phone] Notes/Report: SLIDE REVIEW VERIFIED Gram stain (Not yet reviewed by provider) Interpretation: Performing Lab:[facility], [address] [place] [phone] Notes/Report: FOREHEAD Gram stain Gram stain results: Gram stain No polys Gram stain 2+ epithelial cells Gram stain No organisms seen Reason For Referral No Information Medications Medication SIG (Take, Route, Frequency, Duration) Notes Start Date End Date Status Rosuvastatin Calcium 10 MG 1 tablet Oral ly Once a day Active Metoprolol Succinate ER 25 MG 1 [...] 1 tablet Orally Once a day Active Immunizations Vaccine Route Administration Date Status Comme nts PCV13 Unknown 11/29/2019 Administered COVID- 19 Vaccine Unknown 07/21/2020 Administered COVID- 19 Vaccine Unknown 08/11/2020 Administered 2nd d ose FLuzone HD PF Unknown 02/16/2022 Administered COVID PFIZER Unknown 02/10/2021 Administered COVID-19 Comirnaty Pfizer-BioNTech Unknown 02/02/2023 A dministered COVID Pfizer Bivalent Unknown 02/16/2022 Administered Influenza, quad Unknown 02/06/2020 Administered Influenza, quad Unknown 04/06/2019 Administered Influenza, quad Unknown 01/07/2021 Administered COVID PFIZER Unknown 08/11/2020 Administered COVID PFIZER Unknown 07/21/2020 Administered PPV 23 Unknown 01/07/2021 Administered Influenza, quad Unknown 02/02/2023 Administered Social History Tobacco Use: Social History Observation Description Date Details (start date - stop date) Former Smoker NA - NA Sex Assigned At : Social History Observation Description Sex Assigned At Male Tobacco Use/Smoking Question Answer Notes Patient is a former smoker How long has it been since you last smoked? > 10 years Additional Findings: Tobacco Non-User Ex-cigaret te smoker Alcohol Screen Question Answer Notes Did you have a drink contain ing alcohol in the past year? Yes How often did you have a dri nk containing alcohol in the past year? 4 or more times a week (4 points) How many drinks did you have on a typical day when you were drinking in the past year? 1 or 2 drinks (0 point) How often did you have 6 or more drinks on one occasion in the past year? Never (0 point) Points 4 Interpretation Positive Problems Problem Type SNOMED Code ICD Code Onset Dates Problem Status W/U Status Risk Notes Problem 1721996 Former smoker (Z87.891) Active confirmed He is determine d to remain abstinent. He has a plan to deal with stress and illness. Problem 299749478 Mixed hyperlipidemia (E78.2) Active confirmed The current fasting lipid profile shows good control of his lipids. No change in his regimen was made. Problem Atherosclerosis of coronary artery (367241245) Coronary atherosclerosis due to calcified coronary lesion (I25.84) Active confirmed He had inferolateral changes on a recent stress test consistent with ischemia. A cardiac catheterization is going to be done at the end of January 17, 2024. I counseled him at length about not exceeding certain activity levels between now and then. Problem 390202515 Actinic keratosis (L57.0) Active confirmed He will see the housekeeping room attendant periodically. Problem Benign prostatic hyperplasia (460357675) BPH (benign prostatic hyperplasia) (N40.0) Active confirmed He rises from sleep once or twice a night to urinate. According to fluid intake. We have discussed lifestyle modification as a way to reduce nocturia. Problem 63829650 Essential hypertension (I10) Active confirmed His systolic blood pressure is stable. His body mass index was 22. We reviewed the elements of aggressive sodium restriction. He is exercising strenuously. His blood pressure will be checked frequently. Our goal is to maintain this level Problem 897081849 Onychomycosis (B35.1) Active confirmed There is no systemic infection and no pain. It was elected to observe this condition at this time. Problem 18098934 Chronic lymphocytic leukemia (C91.10) Active confirmed His white blood cell count is 13,000. His diseases stable and does not require treatment at this time. Problem 511068264 Acne rosacea (L71.9) Active confirmed The acne is josesito y mild and no additional treatment is necessary. Problem 58978003 Eczema, unspecified type (L30.9) Active confirmed I have refilled a prescription he gets a compound pharmacy given to him originally by a housekeeping room attendant. Problem 70077752 Retinal tear of right eye (H33.311) Active confirmed This has been corrected in his vision has been stable lately. Problem 400390005 Left upper lobe pulmonary nodule (R91.1) Active confirmed He is an ex-smoker and has a CT scan of the chest for screening purposes every year or 2. His last CT scan of the chest was done December 16, 2020 and showed a stable 2 mm left upper lobe nodule and 3 enhancing lesions in the liver consistent with hemangiomas. The liver lesions and the pulmonary nodules were unchanged compared to the previous CAT scan. A CT scan of the chest will be done in 2023. This has been scheduled. Problem 08485464 Hemangioma of liver (D18.03) Active confirmed Vital Signs Heart Rate 52 /min 07/25/2024 Temperature 97.3 degrees Fahrenheit 07/25/2024 Blood pressure diastolic 81 mm Hg 07/25/2024 Height 70 in 07/25/2024 Blood pressure systolic 161 mm Hg 07/25/2024 Weight 158 lbs 07/25/2024 BMI 22.67 kg/m2 07/25/2024 Encounters Encounter Location Date Provider Diagnosis Hugo Smith III, MD [address] [place] [address] [place] [phone] 07/25/2024 Hugo Smith Essential hypertensi on I10 and Skin infection L08.9 Hugo Smith III, MD [address] [place] [address] [place] [phone] 08/17/2023 Hugo Smith Essential hypertensi on I10 ; Mixed hyperlipidemia E78.2 ; Former smoker Z87.891 ; Chronic lymphocytic leukemia C91.10 and Eczema, unspecified type L30.9 Hugo Smith III, MD [address] [place] [address] [place] [id number] 12/17/2023 Hugo Smith Essential hypertensi on I10 ; Mixed hyperlipidemia E78.2 ; Acne rosacea L71.9 ; Former smoker Z87.891 ; Eczema, unspecified type L30.9 ; Coronary atherosclerosis due to calcified coronary lesion I25.84 ; BPH (benign prostatic hyperplasia) N40.0 and Left upper lobe pulmonary nodule R91.1 Hugo Smith III, MD [address] [place] [address] [place] [phone] 01/24/2024 Hugo Smith Essential hypertensi on I10 ; Coronary atherosclerosis due to calcified coronary lesion I25.84 ; Mixed hyperlipidemia E78.2 ; Retinal tear of right eye H33.311 ; BPH (benign prostatic hyperplasia) N40.0 ; Chronic lymphocytic leukemia C91.10 ; Eczema, unspecified type L30.9 ; Left upper lobe pulmonary nodule R91.1 ; Hemangioma of liver D18.03 and Former smoker Z87.891 Hugo Smith III, MD [address] [place] [address] [place] [phone] 03/27/2024 Hugo Smith Essential hypertensi on I10 ; Chronic lymphocytic leukemia C91.10 ; Mixed hyperlipidemia E78.2 ; Former smoker Z87.891 and Coronary atherosclerosis due to calcified coronary lesion I25.84 Hugo Smith III, MD [address] [place] [address] [place] [phone] 05/18/2024 Hugo Smith Essential hypertensi on I10 ; Chronic lymphocytic leukemia C91.10 ; Actinic keratosis L57.0 ; Retinal tear of right eye H33.311 ; Mixed hyperlipidemia E78.2 ; Eczema, unspecified type L30.9 ; Onychomycosis B35.1 and BPH (benign prostatic hyperplasia) N40.0 Hugo Smith III, MD [address] [place] [address] [place] [phone] 05/29/2024 Hugo Smith Essential hypertensi on I10 ; Chronic lymphocytic leukemia C91.10 ; Mixed hyperlipidemia E78.2 ; Actinic keratosis L57.0 ; Acne rosacea L71.9 ; Former smoker Z87.891 and Eczema, unspecified type L30.9 Hugo Smith III, MD [address] [place] [address] [place] [phone] 01/10/2024 Hugo Smith Assessments Encounter Date Diagnosis (ICD Code) Assessment Notes T reatment Notes Treatment Clinical Notes 07/25/2024 Essential hypertension (ICD-10 - I10) His systolic blood pressure is slightly high at 145. His body mass index was 22. We reviewed the elements of aggressive sodium restriction. He is exercising strenuously. His blood pressure will be checked frequently. Our goal is to reduce his systolic by 20 points. 08/17/2023 Mixed hyperlipidemia (ICD-10 - E78.2) His lipids are stable. No change in his regimen was needed today. Comprehensive blood work will be repeated periodically. 08/17/2023 Essential hypertension (ICD-10 - I10) His blood pressure today is 136/64. His body mass index was 22. We reviewed the elements of aggressive sodium restriction. He is exercising strenuously. His blood pressure will be checked frequently. Our goal is to reduce his systolic by 20 points. 12/17/2023 Mixed hyperlipidemia (ICD-10 - E78.2) His lipids are stable. No change in his regimen was needed today. Comprehensive blood work will be repeated periodically. 12/17/2023 Essential hypertension (ICD-10 - I10) His blood pressure today is 140/66. His body mass index was 22. We reviewed the elements of aggressive sodium restriction. He is exercising strenuously. His blood pressure will be checked frequently. Our goal is to reduce his systolic by 20 points. 01/24/2024 Coronary atherosclerosis due to calcified coronary lesion (ICD-10 - I25.84) He had inferolateral changes on a recent stress test consistent with ischemia. A cardiac catheterization is going to be done at the end of January 17, 2024. I counseled him at length about not exceeding certain activity levels between now and then. 01/24/2024 Essential hypertension (ICD-10 - I10) His blood pressure today was 140/66. His body mass index was 22. We reviewed the elements of aggressive sodium restriction. He is exercising strenuously. His blood pressure will be checked frequently. Our goal is to reduce his systolic by 20 points. 03/27/2024 Essential hypertension (ICD-10 - I10) His blood pressure today was 128/59. His body mass index was 22. We reviewed the elements of aggressive sodium restriction. He is exercising strenuously. His blood pressure will be checked frequently. Our goal is to reduce his systolic by 20 points. 03/27/2024 Chronic lymphocytic leukemia (ICD-10 - C91.10) His platelet count and hematocrit are stable[place] [address] with 66% lymphocytes. No therapy is necessary. There was no adenopathy. No splenomegaly or constitutional B symptoms present today. 05/18/2024 Essential hypertension (ICD-10 - I10) His systolic blood pressure is slightly high at 145. His body mass index was 22. We reviewed the elements of aggressive sodium restriction. He is exercising strenuously. His blood pressure will be checked frequently. Our goal is to reduce his systolic by 20 points. 05/18/2024 Chronic lymphocytic leukemia (ICD-10 - C91.10) His platelet count and hematocrit are stable[place] [address] with 66% lymphocytes. No therapy is necessary. There was no adenopathy. No splenomegaly or constitutional B symptoms present today. 05/29/2024 Essential hypertension (ICD-10 - I10) His [...] not require treatment at this time. 07/25/2024 Skin infection (ICD-10 - L08.9) 08/17/2023 Former smoker (ICD-1 0 - Z87.891) He is determined to remain abstinent. He has a plan to deal with stress and illness. 12/17/2023 Acne rosacea (ICD-10 - L71.9) The acne is very mild and no additional treatment is necessary. 01/24/2024 Mixed hyperlipidemia (ICD-10 - E78.2) Comprehensive blood work will fasting lipid profile will be done periodically and prior to his next visit. 03/27/2024 Mixed hyperlipidemia (ICD-10 - E78.2) The current fasting lipid profile shows good control of his lipids. His weight is in the normal range. We reviewed his diet. No change in his medication was necessary. 05/18/2024 Actinic keratosis (ICD-10 - L57.0) He will see the housekeeping room attendant periodically. 05/29/2024 Mixed hyperlipidemia (ICD-10 - E78.2) The current fasting lipid profile shows good control of his lipids. No change in his regimen was made. 08/17/2023 Chronic lymphocytic leukemia (ICD-10 - C91.10) His platelet count and hematocrit are stable. [facility] white blood cell count is normal at 9200 with 66% lymphocytes. No therapy is necessary. There was no adenopathy. No splenomegaly or constitutional B symptoms present today. 12/17/2023 Former smoker (ICD-1 0 - Z87.891) He is determined to remain abstinent. He has a plan to deal with stress and illness. 01/24/2024 Retinal tear of righ t eye (ICD-10 - H33.311) This has been corrected in his vision has been stable lately. 03/27/2024 Former smoker (ICD-1 0 - Z87.891) He is determined to remain abstinent. He has a plan to deal with stress and illness. 05/18/2024 Retinal tear of righ t eye (ICD-10 - H33.311) This has been corrected in his vision has been stable lately. 05/29/2024 Actinic keratosis (ICD-10 - L57.0) He will see the housekeeping room attendant periodically. 08/17/2023 Eczema, unspecified type (ICD-10 - L30.9) I have refilled a prescription he gets a compound pharmacy given to him originally by a housekeeping room attendant. 12/17/2023 Eczema, unspecified type (ICD-10 - L30.9) I have refilled a prescription he gets a compound pharmacy given to him originally by a housekeeping room attendant. 01/24/2024 BPH (benign prostati c hyperplasia) (ICD-10 - N40.0) He rises from sleep once or twice a night to urinate. According to fluid intake. We have discussed lifestyle modification as a way to reduce nocturia. 03/27/2024 Coronary atherosclerosis due to calcified coronary lesion (ICD-10 - I25.84) He had inferolateral changes on a recent stress test consistent with ischemia. A cardiac catheterization is going to be done at the end of January 17, 2024. I counseled him at length about not exceeding certain activity levels between now and then. 05/18/2024 Mixed hyperlipidemia (ICD-10 - E78.2) The current fasting lipid profile shows good control of his lipids. His weight is in the normal range. We reviewed his diet. No change in his medication was necessary. 05/29/2024 Acne rosacea (ICD-10 - L71.9) The acne is very mild and no additional treatment is necessary. 12/17/2023 Coronary atherosclerosis due to calcified coronary lesion (ICD-10 - I25.84) He had inferolateral changes on a recent stress test consistent with ischemia. A cardiac catheterization is going to be done at the end of January 17, 2024. I counseled him at length about not exceeding certain activity levels between now and then. 01/24/2024 Chronic lymphocytic leukemia (ICD-10 - C91.10) His platelet count and hematocrit are stable. [facility] white blood cell count is normal at 9200 with 66% lymphocytes. No therapy is necessary. There was no adenopathy. No splenomegaly or constitutional B symptoms present today. 05/18/2024 Eczema, unspecified type (ICD-10 - L30.9) I have refilled a prescription he gets a compound pharmacy given to him originally by a housekeeping room attendant. 05/29/2024 Former smoker (ICD-1 0 - Z87.891) He is determined to remain abstinent. He has a plan to deal with stress and illness. 12/17/2023 BPH (benign prostati c hyperplasia) (ICD-10 - N40.0) He rises from sleep once or twice a night to urinate. According to fluid intake. We have discussed lifestyle modification as a way to reduce nocturia. 01/24/2024 Eczema, unspecified type (ICD-10 - L30.9) I have refilled a prescription he gets a compound pharmacy given to him originally by a housekeeping room attendant. 05/18/2024 Onychomycosis (ICD-1 0 - B35.1) There is no systemic infection and no pain. It was elected to observe this condition at this time. 05/29/2024 Eczema, unspecified type (ICD-10 - L30.9) I have refilled a prescription he gets a compound pharmacy given to him originally by a housekeeping room attendant. 12/17/2023 Left upper lobe pulmonary nodule (ICD-10 - R91.1) He is an ex-smoker and has a CT scan of the chest for screening purposes every year or 2. [address] last [address] scan of the chest was done December 16, 2020 and showed a stable 2 mm left upper lobe nodule and 3 enhancing lesions in the liver consistent with hemangiomas. The liver lesions and the pulmonary nodules were unchanged compared to the previous CAT scan. A CT scan of the chest will be done in 2023. This has been scheduled. 01/24/2024 Left upper lobe pulmonary nodule (ICD-10 - R91.1) He is an ex-smoker and has a CT scan of the chest for screening purposes every year or 2. [address] last [address] scan of the chest was done December 16, 2020 and showed a stable 2 mm left upper lobe nodule and 3 enhancing lesions in the liver consistent with hemangiomas. The liver lesions and the pulmonary nodules were unchanged compared to the previous CAT scan. A CT scan of the chest will be done in 2023. This has been scheduled. 05/18/2024 BPH (benign prostati c hyperplasia) (ICD-10 - N40.0) He rises from sleep once or twice a night to urinate. According to fluid intake. We have discussed lifestyle modification as a way to reduce nocturia. 01/24/2024 Hemangioma of liver (ICD-10 - D18.03) 01/24/2024 Former smoker (ICD-1 0 - Z87.891) He is determined to remain abstinent. He has a plan to deal with stress and illness. Plan Of Treatment Pending Test Test Name Order Date PATHOLOGIST REVIEW BLOOD SMEAR 9 PROFILE, FASTING (COMPREHENSIVE METABOLI C) 03/23/2022 PROFILE, FASTING (COMPREHENSIVE METABOLI C) 03/27/2024 PROFILE, FASTING (COMPREHENSIVE METABOLI C) 12/25/2020 PROFILE, FASTING (COMPREHENSIVE METABOLI C) 08/17/2019 PROFILE, FASTING (COMPREHENSIVE METABOLI C) 04/17/2019 PROFILE, FASTING (COMPREHENSIVE METABOLI C) 09/05/2020 PROFILE, FASTING (COMPREHENSIVE METABOLI C) 07/28/2021 PROFILE, FASTING (COMPREHENSIVE METABOLI C) 01/24/2024 PROFILE, FASTING (COMPREHENSIVE METABOLI C) 05/29/2024 PROFILE, FASTING (COMPREHENSIVE METABOLI C) 12/15/2022 PROFILE, FASTING (COMPREHENSIVE METABOLI C) 01/12/2019 PROFILE, FASTING (COMPREHENSIVE METABOLI C) 10/26/2019 PROFILE, FASTING (COMPREHENSIVE METABOLI C) 04/22/2021 PROFILE, FASTING (COMPREHENSIVE METABOLI C) 08/11/2022 PROFILE, RANDOM (COMPREHENSIVE METABOLIC ) 11/17/2021 PROFILE, RANDOM (COMPREHENSIVE METABOLIC ) 01/31/2020 PROFILE, RANDOM (COMPREHENSIVE METABOLIC ) 05/02/2020 PROFILE, RANDOM (COMPREHENSIVE METABOLIC ) 10/06/2018 LIPID PANEL 08/11/2022 LIPID PANEL 11/17/2021 LIPID PANEL 08/17/2019 LIPID PANEL 04/17/2019 LIPID PANEL 09/05/2020 LIPID PANEL 07/28/2021 LIPID PANEL 12/15/2022 LIPID PANEL 01/12/2019 LIPID PANEL 05/02/2020 LIPID PANEL 10/26/2019 LIPID PANEL 04/22/2021 GGT 03/23/2022 GGT 07/28/2021 LDH 03/23/2022 TSH (THYROID STIMULATING HORMONE) 2018 PSA, TOTAL 08/11/2022 PSA, TOTAL 11/17/2021 CBC w DIFF 12/15/2022 CBC w DIFF 01/12/2019 CBC w DIFF 05/02/2020 CBC w DIFF 10/26/2019 CBC w DIFF 04/22/2021 CBC w DIFF 12/25/2020 CBC w DIFF 08/11/2022 CBC w DIFF 03/23/2022 CBC w DIFF 08/17/2019 CBC w DIFF 09/05/2020 CBC w DIFF 11/17/2021 CBC w DIFF 05/29/2024 CBC w DIFF 07/28/2021 CBC with MANUAL DIFFERENTIAL 10/06/2018 CBC with MANUAL DIFFERENTIAL 11/07/2018 CBC with MANUAL DIFFERENTIAL 01/31/2020 CBC with MANUAL DIFFERENTIAL 09/06/2018 CBC with MANUAL DIFFERENTIAL 04/17/2019 URINALYSIS (UA) 08/01/2019 LEUKEMIA & LYMPHOMA EVAL (LLE) BLOOD URINE CULTURE 08/01/2019 CT CHEST WITH CONTRAST 12/11/2020 CT CHEST WITH CONTRAST 12/25/2020 US RENAL BILATERAL 04/24/2019 US URINARY BLADDER 04/24/2019 Stress Test 01/06/2021 VITAMIN D 25-OH TOTAL 11/17/2021 CBC WITH AUTO DIFF 03/27/2024 CBC WITH AUTO DIFF 01/24/2024 Platelet Count 09/05/2020 Lipid Panel 03/27/2024 Lipid Panel 12/25/2020 Lipid Panel 03/23/2022 Lipid Panel 01/24/2024 Lipid Panel 05/29/2024 Gram stain 07/25/2024 CT chest w con 04/16/2023 Routine Culture 07/25/2024 NUC Stress Test 01/22/2021 Next Appt Details Provider Name:Hugo Smith, 07/28/2024 11:30:00 AM, [address] [place] [address] [address], [place], [address], Provider Name:Hugo Smith, 08/21/2024 09:30:00 AM, [address] [place] [address] [address], [place], [address], Insurance Providers Payer Name Payer Address Payer Phone Subscriber Number Group Number Insured Name Patient Relationship to Insured Coverage Start Date Coverage End Date MEDICARE NGS [address] [place] [phone] [id number] Henrique Amaro Self - patient is the insured [facility] [address] [place], [place] [id number] [phone] [id number] Henrique Amaro Self - patient is the insured Medical (General) History Medical History History ICD Code Positive FELISA (antinuclear antibody) R76. 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 Briggs, [facility], one inflammatory polyp 2013 colonoscopy, negative findings 2002 rotator cuff surgery, left 12/2016 Hospitalization History Reason Date(Month/Year) No history fractured rib due to fall 12/2019
--- OUTSIDE RECORDS SUMMARY | 2024-07-25 16:07 | XMS_ITS | Continuity of Care Document ---
Author Organization [facility] Address [address] [facility] [address] [facility] [address] [place] [address] Phone Care Team Providers Care Automotive Engineering Technician Name Role Phone Neha RODRIGUEZ, Greyson Unavailable Unavailable Allergies, Adverse Reactions, Alerts Substance Reaction Status Criticality No Known allergies Medications Medication Instructions Dosage Effective Dates (start - stop) Status Comments Simvastatin 20 mg Tab 1 po qd - Active Aspir-81 81 mg Tab take 1 tablet (81MG) by ORAL route every day - Active Procedures Procedure Date Offic/outpt E&m [...] on Encounter [facility], [address], [place], [place], [address], [place] tel:[phone] [facility] JESUS No Information 1 Neha Rubi. [address] [facility], [address], [place], [place], [address] , [place]. tel:[phone] Offic/outpt E&m Estab Low-mod [facility], [address] [facility] [address], [place], [place], [address], [place] tel:[phone] [facility] left shoulder pain (chief complaint) left sided rib pain (chief complaint) left heel pain (chief complaint) SPRAIN ROTATOR CUFFFRACTURE RIB NOS-CLOSEDCon tusion - Foot 1 Neha Rubi. [address] [facility], [address], [place], [place], [address] , [place]. tel:[phone] Referring Provider: Greyson Reid, [address] [facility] [address], [place], [address] . tel:[phone] Offic/outpt E&m New Mod Sever [facility], [address] [facility] [address], [place], [place], [address], [place] tel:[phone] 7176 [facility] left rib pain (chief complaint) left heel pain (chief complaint) SPRAIN ROTATOR CUFFFracture, ribContusion of heel 1 Neha Rubi. [address] [facility], [address], [place], [place], [address] , [place]. tel:[phone] Referring Provider: Greyson Reid, [address] [facility] [address], [place], [address] . tel:[phone] Family History Family Member Type Diagnosis Age At Onset Problem (finding) Family history of Arthr itis Problem (finding) Family history of malignant neoplasm of lung Problem (finding) Family history of hyper tension Problem (finding) Family history of alcoh olism Problem (finding) Family history of Stoma ch Ulcers Payers Payer name Insurance type Covered republican ID Authoriza tion(s) [facility] [id number] Social History Type Description Quantity Date Captured [...]
--- OUTSIDE RECORDS SUMMARY | 2024-07-25 16:07 | XMS_ITS ---
Author Organization [facility] Address [address] [place] [address] Care Team Providers Care Hemstitching Machine Operator Name Role Phone Hugo Smith MD Primary Care Provider Unavailab Hugo Beyer Unavailable [phone] Allergies No Known Allergies REASON FOR VISIT Patient presents today for a COLONOSCOPY RECALL. Medications Medication SIG (Take, Route, Frequency, Duration) Notes Start Date End Date Status Rosuvastatin Calcium 10 MG Oral for 90 Active Metoprolol Succinate ER 25 MG Oral for 90 Active Lisinopril 10 MG Oral for 90 A ctive Multi Vitamin/Minerals Orally Active Aspir-Low 81 MG 1 tablet Orally Once a day for 30 day(s) Active hydroCHLOROthiazide 25 MG 1 tablet Orall y Once a day Active Problems Problem Type SNOMED Code ICD Code Onset Dates Problem Status W/U Status Risk Notes Problem Colon cancer screening (091288732) Colon cancer screening (Z12.11) Active confirmed Problem Long-term current use of aspirin (2963017996189 03) Aspirin long-term use (Z79.82) Active confirmed Vital Signs Blood pressure systolic 00 mm Hg 10/26/19 24 Blood pressure diastolic 00 mm Hg 024 Height 69 in 10/26/2023 Weight 150 lbs 10/26/2023 BMI 22.15 kg/m2 10/26/2023 Encounters Encounter Location Date Provider Diagnosis [facility] [address] [place] [phone] 10/26/2023 Hugo Briggs Colon cancer screening Z12.11 and Aspirin long-term use Z79.82 Assessments Encounter Date Diagnosis (ICD Code) Assessment Notes Treatment Notes Treatment Clinical Notes Section Notes 10/26/2023 Colon cancer screening (ICD-10 - Z12.11) Do not take aspirin on the day of the colonosocpy Do not take the Hyrdochlorothiazide the day before nor on the day of the colonosocpy Will need a cardiology clearance note from Dr. Sifuentes Overall, Henrique appears quite well. I did recommend a followup colonoscopy for screening purposes given his age, excellent clinical appearance, and his last colonoscopy approaching the 10 year judie. We did review the rationale for that regard to colon cancer prevention. Full consent was obtained for this, including risks of bleeding and perforation. The colonoscopy will be done with monitored anesthesia care. He was given the below instructions regarding adjustment of his medications for the procedure. Of note, he does have a stress test scheduled for later this month and we will obtain a clearance note from his personal injury legal assistant prior to the colonoscopy. Henrique was comfortable with this plan. Thank you again for allowing me to participate in Henrique's care. I shall continue to keep you advised of his progress. 10/26/2023 Aspirin long-term use (ICD-10 - Z79.82) Overall, Henrique appears quite well. I did recommend a followup colonoscopy for screening purposes given his age, excellent clinical appearance, and his last colonoscopy approaching the 10 year judie. We did review the rationale for that regard to colon cancer prevention. Full consent was obtained for this, including risks of bleeding and perforation. The colonoscopy will be done with monitored anesthesia care. He was given the below instructions regarding adjustment of his medications for the procedure. Of note, he does have a stress test scheduled for later this month and we will obtain a clearance note from his personal injury legal assistant prior to the colonoscopy. Henrique was comfortable with this plan. Thank you again for allowing me to participate in Henrique's care. I shall continue to keep you advised of his progress. Plan Of Treatment Treatment Notes Assessment Notes Colon cancer screening Do not take aspirin on the day of the colonosocpy Do not take the Hyrdochlorothiazide the day before nor on the day of the colonosocpy Will need a cardiology clearance note from Dr. Sifuentes Future Test Test Name Order Date COLONOSCOPY 10/26/2023 Next Appt Details Follow Up: prn, Reason: Progress Notes * HENRIQUE PACHECOREINALDO: 0 (73 yo M)Acc No.[id number]:10/26/2023 Progress Notes Patient:HENRIQUE RING Provider:?Hugo Briggs MD :1950???Age:73 Y???Sex:Male Jerry e:10/26/2023 Address:[address] [place], [place] [id number] Pcp:Hugo Smith MD Subjective: * Chief Complaints: * ???Patient presents today fo r a COLONOSCOPY RECALL. * HPI: ???incontinence:? I saw Henrique in the office today for evaluation of colorectal cancer screening. ?I last saw Henrique in February 2014, at which time he underwent a negative followup screening colonoscopy other than the removal of a small inflammatory polyp. He currently feels very well. He enjoys a good appetite, without any significant heartburn or dysphagia. He denies any abdominal pain, jaundice, nor unintentional weight loss. His bowel movements are regular and without any signs of bleeding. He denies any known family history of colon cancer. * ROS:?General/Constitutional:?Change in appetite?denies.?Chills?denies.?Fatigue?denies.?Ophthalmologic:?Comments?Diminished eyesight in the left eye.?ENT:?Comments?all negative.?Respiratory:?hemoptysis?denies.?Cough?denies.?Cardiovascular:?Chest pain?denies.?Orthopnea?denies.?Gastrointestinal:?Comments?See HPI for details.?Genitourinary:?Hematuria?denies.?Dysuria?denies.?Musculoskeletal:?Painful joints?denies.?Weakness?denies.?Skin:?Itching?denies.?Rash?denies.?Neurologic:?Headache?denies.?Seizures?denies.?Psychiatric:?Comments?all negative.? * Medical History:? * Surgical History:?left shoul carroll cleaning arthritis 2017right shoulder cleaning arthiritis 2019left toe bone spur 2020 * Hospitalization/Major Diagno stic Procedure:?No Hospitalization History. * Family History:?Father: dece ased, pancreatic and lung cancer.?Mother: , diagnosed with Heart disease, HTN (hypertension).?Siblings: brother , diagnosed with Heart disease, HTN (hypertension).? No colorectal cancer. * Social History:?Tobacco Use:?Tobacco Use/Smoking?Are you a: former smoker , How long has it been since you last smoked?: > 10 years.?Drugs/Alcohol:?Alcohol Screen?Points: 4, Interpretation: Positive.?Miscellaneous:?Marital status: . Occupation: retired. ???Nonsmoker >10 yrs; 1 glass of wine at dinner. * Medications:?TakingAspir-Low 81 MG Tablet Delayed Release 1 tablet Orally Once a dayhydroCHLOROthiazide 25 MG Tablet 1 tablet Orally Once a dayMulti Vitamin/Minerals Tablet Orally Metoprolol Succinate ER 25 MG Tablet Extended Release 24 Hour Oral Rosuvastatin Calcium 10 MG Tablet Oral Lisinopril 10 MG Tablet Oral Taking Aspir-Low 81 MG Tablet Delayed Release 1 tablet Orally Once a dayTaking hydroCHLOROthiazide 25 MG Tablet 1 tablet Orally Once a dayTaking Multi Vitamin/Minerals Tablet Orally Taking Metoprolol Succinate ER 25 MG Tablet Extended Release 24 Hour Oral Taking Rosuvastatin Calcium 10 MG Tablet Oral Taking Lisinopril 10 MG Tablet Oral DiscontinuedMoviPrep 100 GM Solution as directed Orally as directedMedication List reviewed and reconciled with the patientDiscontinued MoviPrep 100 GM Solution as directed Orally as directedMedication List reviewed and reconciled with the patient * Allergies:?N.K.D.A.yes[Aller gies Verified] Objective: * Vitals:?Wt: 150 lbs, Ht: 69 in, BMI:22.15 Index, BP: 00/00 mm Hg. * Examination: ???General Examination: ?GENERAL APPEARANCE:?pleasant, well nourished, well developed, in no acute distress.?EYES:?sclera non-icteric.?ORAL CAVITY:?mucosa moist.?NECK/THYROID:?no cervical lymphadenopathy, neck supple.?SKIN:?nonjaundiced, no spider angiomata.?HEART:?S1, S2 normal.?LUNGS:?clear to auscultation bilaterally.?ABDOMEN:?normal bowel sounds, no guarding or rigidity, no guarding or rigidity, no masses palpable, soft, nontender, nondistended.?EXTREMITIES:?no edema.?NEUROLOGIC:?alert and oriented.? Assessment: * Assessment: 1.?Aspirin long-term use - Z 79.82 (Primary)?2.?Colon cancer screening - Z12.11? Overall, Henrique appears quit e well. I did recommend a followup colonoscopy for screening purposes given his age, excellent clinical appearance, and his last colonoscopy approaching the 10 year judie. We did review the rationale for that regard to colon cancer prevention. Full consent was obtained for this, including risks of bleeding and perforation. The colonoscopy will be done with monitored anesthesia care. He was given the below instructions regarding adjustment of his medications for the procedure. Of note, he does have a stress test scheduled for later this month and we will obtain a clearance note from his personal injury legal assistant prior to the colonoscopy. Henrique was comfortable with this plan. Thank you again for allowing me to participate in Henrique's care. I shall continue to keep you advised of his progress. Plan: * Treatment: Notes: Do not take aspirin on the day of the colonosocpy Do not take the Hyrdochlorothiazide the day before nor on the day of the colonosocpy Will need a cardiology clearance note from Dr. Sifuentes?? * Procedure Codes:?3017F COLOR ECTAL CA SCREEN DOC [id number] TOBACCO NON-[id number] BP SCR NOT PRFRM REC REASON NOS * Follow Up:?prn * * Sign off status: Completed true * Provider:?Hugo Briggs MD Date:? 024 Generated for Susana wallis/Richard/Niiitting on:?07/25/2024 11:31 AM EDT History and Physical Notes * HPI (History of Present Illness) Category Sub-Category Detail Notes Category Not es incontinence I saw Henrique in the office today for evaluation of colorectal cancer screening. I last saw Henrique in February 2014, at which time he underwent a negative followup screening colonoscopy other than the removal of a small inflammatory polyp. He currently feels very well. He enjoys a good appetite, without any significant heartburn or dysphagia. He denies any abdominal pain, jaundice, nor unintentional weight loss. His bowel movements are regular and without any signs of bleeding. He denies any known family history of colon cancer. Examination Category Sub-Category Detail Notes Category Not es General Examination GENERAL APPEARANCE: pleasant , well nourished, well developed, in no acute distress HEAD: EYES: sclera non-icteric EARS: NOSE: THROAT: NECK/THYROID: no cervical lymphade nopathy, neck supple HEART: S1, S2 normal CHEST: LUNGS: clear to auscultatio n bilaterally ABDOMEN: normal bowel sounds, no guarding or rigidity, no guarding or rigidity, no masses palpable, soft, nontender, nondistended NEUROLOGIC: alert and oriented SKIN: nonjaundiced, no spi carroll angiomata EXTREMITIES: no edema PERIPHERAL PULSES: BACK: BREASTS: MUSCULOSKELETAL: MALE GENITOURINARY: LYMPH NODES: RECTAL EXAM: FEMALE GENITOURINARY: ORAL CAVITY: mucosa moist
--- OUTSIDE RECORDS SUMMARY | 2024-07-25 16:07 | XMS_ITS | Patient Health Record ---
Author Organization [facility] Address [address] [place] [address] Care Team Providers Care Field Enumerator Name Role Phone Luis RODRIGUEZ, Hugo Primary Care Provider Unavailab Hugo Beyer Unavailable [phone] Allergies No Known Allergies Reason For Referral No Information Medications Medication SIG (Take, Route, Frequency, Duration) Notes Start Date End Date Status Rosuvastatin Calcium 10 MG Oral for 90 Active Metoprolol Succinate ER 25 MG Oral for 90 Active Lisinopril 10 MG Oral for 90 A ctive Aspir-Low 81 MG 1 tablet Orally Once a day for 30 day(s) Active Multi Vitamin/Minerals Orally Active hydroCHLOROthiazide 25 MG 1 tablet Orall y Once a day Active Problems Problem Type SNOMED Code ICD Code Onset Dates Problem Status W/U Status Risk Notes Problem Colon cancer screening (634812799) Colon cancer screening (Z12.11) Active confirmed Problem Long-term current use of aspirin (9540643770942 03) Aspirin long-term use (Z79.82) Active confirmed Vital Signs Blood pressure diastolic 00 mm Hg 10/26/2023 Height 69 in 10/26/2023 Blood pressure systolic 00 mm Hg 10/26/2023 Weight 150 lbs 10/26/2023 BMI 22.15 kg/m2 10/26/2023 Encounters Encounter Location Date Provider Diagnosis [facility] [address] [place] [phone] 10/26/2023 Hugo Briggs Colon cancer screening Z12.11 and Aspirin long-term use Z79.82 [facility] [address] [place] [address] 01/04/2024 Hugo Briggs Assessments Encounter Date Diagnosis (ICD Code) Assessment [...] will obtain a clearance note from his lead bi developer prior to the colonoscopy. Henrique was comfortable [...] will obtain a clearance note from his lead bi developer prior to the colonoscopy. Henrique was comfortable with this plan. Thank you again for allowing me to participate in Henrique's care. I shall continue to keep you advised of his progress. Plan Of Treatment Future Test Test Name Order Date COLONOSCOPY 12/28/2013 COLONOSCOPY 10/26/2023 Insurance Providers Payer Name Payer Address Payer Phone Subscriber Number Group Number Insured Name Patient Relationship to Insured Coverage Start Date Coverage End Date MEDICARE OF [place] [address] [place] [address] [id number] HENRIQUE PACHECO Self - patient is the insured [employer] ATT[employer] CLAIMS [address] [place] [address] [id number] HENRIQUE PACHECO Self - patient is the insured Medical (General) History Medical History History ICD Code HTN Hyperlipidemia--on no meds Left eye legally blind Acne rosacea Denies DM,CVA,Lung disease,renal disease Neg. colonoscopy [place] [address] Martinez , except for internal hemorrhoids History of silent heart attack - Dr. Mary woodward--scheduled for an ETT in 10/2023 Colonoscopy in 02/2014 with only a small inflammatory polyp CLL Surgical History Surgery Date(Month/Year) left shoulder cleaning arthritis 2017 right shoulder cleaning arthiritis 2019 left toe bone spur 2020
--- OUTSIDE RECORDS SUMMARY | 2024-07-25 16:07 | XMS_ITS ---
Author Organization Hugo Smith III, MD Address [address] [address] Care Team Providers Care Ditcher Operator Name Role Phone Hugo Smith Primary Care Provider [phone] Allergies Allergen (clinical drug ingredient) Drug/Non Drug Allergy documented on EMR Reaction Allergy Type Onset Date Status No Known Drug Allergy Unknown Drug Allergy Active REASON FOR VISIT Swollen around eyes x 2 days Medications Medication SIG (Take, Route, Frequency, Duration) [...] degrees Fahrenheit 07/26/19 25 Blood pressure systolic 161 mm Hg 07/26/19 25 Blood pressure diastolic 81 mm Hg 025 Heart Rate 52 /min 07/25/2024 Height 70 in 07/25/2024 Weight 158 lbs 07/25/2024 BMI 22.67 kg/m2 07/25/2024 Encounters Encounter Location Date Provider Diagnosis Hugo Smith III, MD [address] [place] [address] [place] [address] 07/25/2024 Hugo Smith Essential hypertensi on I10 and Skin infection L08.9 Assessments Encounter Date Diagnosis (ICD Code) Assessment Notes Treat ment Notes Treatment Clinical Notes 07/25/2024 Essential hypertension (ICD-10 - I10) His systolic blood pressure is slightly high at 145. His body mass index was 22. We reviewed the elements of aggressive sodium restriction. He is exercising strenuously. His blood pressure will be checked frequently. Our goal is to reduce his systolic by 20 points. 07/25/2024 Skin infection (ICD-10 - L08.9) Plan Of Treatment Medication Medication Name Sig Start Date Stop Date Notes Metoprolol Succinate ER 25 MG 1 tablet Orally Once a day hydroCHLOROthiazide 25 MG 1 tablet in th e morning Orally Once a day Doxycycline Hyclate 100 MG 1 capsule Ora lly twice a day for 10 days 07/25/2024 08/14/2024 Lisinopril 10 MG TAKE 1 TABLET BY SEJAL TH EVERY DAY Aspirin 81 MG 1 tablet Orally Once a day Rosuvastatin Calcium 10 MG 1 tablet Orally Once a day Pending Test Test Name Order Date Routine Culture 07/25/2024 Next Appt Details Follow Up: 2 - 3 Days, Reaso n: OV Provider Name:Hugo Smith, 07/28/2024 11:30:00 AM, [address] [place] [address] [address], [place], [address], Provider Name:Hugo Smith, 08/21/2024 09:30:00 AM, [address] [place] [address] [place], [address], Progress Notes * Henrique AMARODOB: 0 (73 yo M)Acc No.[id number]:07/25/2024 Patient:?Henrique AMARO Provider:?Hugo Smith MD :1950???Age:73 Y???Sex:Male Jerry e:07/25/2024 Address:[address] [place], [id number] Subjective: * Chief Complaints: * ???1. Swollen around eyes x 2 days. * HPI: ???COVID-19 Screening:?sees derm in 2 weeks,? forehead has been there for 7 days. .? 07/05 to [place], forehead was red spot, back from [place] 07/12.? ?it was clearing up then got 2 spots weeping clelar fluid,yesterday fluid lunder yes red edema rightd of right eye.? Per Dr Smith I called Dr cannon office at [phone]? spoke to Irina she will put a message in to Dr Cannon to see if they can see patient sooner.? They will call patient with this appt information. ?Questions?Have you had any new onset fever, chills, cough, congestion, sore throat, shortness of breath, muscle aches??No * ROS:?General/Constitutional:?pain?only normal aches and pains.?Chills?denies.?Fatigue?admits.?Fever?denies.?ENT:?Decreased hearing?denies.?Respiratory:?Cough?denies.?Cardiovascular:?Chest pain with exertion?denies.?Dyspnea on exertion?denies.?Shortness of breath?denies.?Gastrointestinal:?Constipation?denies.?Decreased appetite?denies.?Diarrhea?denies.?Heartburn?denies.?Nausea?denies.?Rectal bleeding?denies.?Vomiting?denies.?Hematology:?bruising?denies.?petechiae?denies.?Swollen glands?none have been noted.?Genitourinary:?Frequent urination?denies.?Musculoskeletal:?Muscle aches?denies.?Painful joints?denies.?Sciatica?denies.?Weakness?denies.?Skin:?Itching?denies.?Rash?denies.?Skin lesion(s)?denies.?Neurologic:?Difficulty speaking?denies.?Dizziness?denies.?Headache?denies.?Low back pain?denies.?Psychiatric:?Depressed mood?denies.? 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 * Surgical History:?rotator cu ff surgery, left 12/2016, colonoscopy, negative findings 2002, colonoscopy, Dr. Briggs, [facility], one inflammatory polyp 2013, right shoulder rotor cuff surergy 08/2019, left great big toe bone spur/ arthritis 08/2020, Cardiac catheterization [facility] 60% occlusion circumflex branch January 2024, No history . * Hospitalization/Major Diagno stic Procedure:?fractured rib due to fall 12/2019, No history . * Family History:?Father: dece ased 82 yrs, diagnosed with HTN, Cancer.?Mother: 78 yrs, diagnosed with CVD.?Siblings: , diagnosed with Cancer in 1.?2 brother(s) , 2 sister(s) - healthy. .? His father suffered from alcoholism pancreatic cancer [...] use disorder or mental illness. * Social History:?Tobacco Use:?Tobacco Use/Smoking?Patient is a?former smoker ?How long has it been since you last smoked??> 10 years ?Additional Findings: Tobacco Non-User?Ex-cigarette smoker ???He was born in [place], [place]. He has been to Karlee for 35 years. They have a step child, Harsha. He has no grandchildren. He is retired from [employer], and has no exposures to toxic materials. He is not a [employer]. * Medications:?Taking Rosuvast atin Calcium 10 MG Tablet 1 tablet Orally Once a day , Taking Metoprolol Succinate ER 25 MG Tablet Extended Release 24 Hour 1 tablet Orally Once a day , Taking Lisinopril 10 MG Tablet TAKE 1 TABLET BY MOUTH EVERY DAY , Taking Aspirin 81 MG Tablet Chewable 1 tablet Orally Once a day , Taking hydroCHLOROthiazide 25 MG Tablet 1 tablet in the morning Orally Once a day , Medication List reviewed and reconciled with the patient * Allergies:?No Known Drug All ergy. Objective: * Vitals:?Ht: 70, Wt:158, BMI: 22.67, BP:161/81, HR:52, Temp:97.3, Ht-cm: 177.8, Wt-k.67. * Examination: ???General Examination: ?GENERAL APPEARANCE:?pleasant, well nourished, well developed, in no acute distress, calm and relaxed.?HEAD:?atraumatic, normocephalic.?EYES:?eomi, perrla, anicteric, conjugate.?EARS:?normal.?NOSE:?septum intact.?ORAL CAVITY:?normal, unremarkable.?NECK/THYROID:?no jugular venous distention, no carotid bruit, thyroid normal.?LYMPH NODES:?no enlarged lymph nodes,spleen normal.?SKIN:?no suspicious lesions, anicteric.?HEART:?no clicks, gallops, murmurs, or rubs, regular rhythm, S1, S2 normal, no s3, or vascular bruits.?LUNGS:?clear to auscultation .?BREASTS:??no masses palpable bilaterally.?ABDOMEN:?bowel sounds normal, no ascites, no organomegaly, no mass.?RECTAL EXAM:?not examined.?MUSCULOSKELETAL:?extremities unremarkable, no clubbing, cyanosis or edema.?PERIPHERAL PULSES:?normal.?NEUROLOGIC:?alert and oriented, cranial nerves 2-12 grossly intact, deep tendon reflexes 2+ symmetrical, motor strength normal upper and lower extremities, sensory exam intact.?PSYCH:?alert, oriented.? Assessment: * Assessment: 1.?Essential hypertension - I10???Notes :His systolic blood pressure is slightly high at 145. His body mass index was 22. We reviewed the elements of aggressive sodium restriction. He is exercising strenuously. His blood pressure will be checked frequently. Our goal is to reduce his systolic by 20 points.???2.?Skin infection - L08.9??? Plan: * Treatment: 2.?Skin infection?LAB: Routine Culture * Follow Up:?2 - 3 Days (Reaso n: OV) * Images: * The named appointment provid er may or may not be the originator of this progress note, and it is not deemed complete until electronically signed by the appointment provider. Sign off status: Pending * Provider:?Hugo Smith MD Date:?11/2024 Generated for Susana wallis/Richard/eTjoselinsmitting on:?07/25/2024 04:07 PM EDT History and Physical Notes * HPI (History of Present Illness) Category Sub-Category Detail Notes COVID-19 Screening Questions Have you had any new onset fever, chills, cough, congestion, sore throat, shortness of breath, muscle aches?: No Examination Category Sub-Category Detail Notes General Examination GENERAL APPEARANCE: pleasant , well nourished, well developed, in no acute distress, calm and relaxed HEAD: atraumatic, normocep halic EYES: eomi, perrla, [...] exam intact SKIN: no suspicious lesion s, anicteric PERIPHERAL PULSES: normal BREASTS: no masses palpable b ilaterally MUSCULOSKELETAL: extremities unremark able, no clubbing, cyanosis or edema LYMPH NODES: no enlarged lymph no kiera,spleen normal RECTAL EXAM: not examined PSYCH: alert, oriented ORAL CAVITY: normal, unremarkable
--- OUTSIDE RECORDS SUMMARY | 2024-07-25 16:07 | XMS_ITS ---
Author Organization Hugo Smith III, MD Address [address] [place] [address] Care Team Providers Care Hand Filer Balance Wheel Name Role Phone Hugo Smith Primary Care [...] Date Provider Diagnosis Hugo Smith III, MD [address] [place] [address] [place] [address] 05/29/2024 Hugo Smith Essential hypertensi on I10 [...] (ICD-10 - L57.0) He will see the ceramic painter periodically. 05/29/2024 Acne rosacea (ICD-10 - L71.9) [...] pharmacy given to him originally by a ceramic painter. Plan Of Treatment Medication Medication Name Sig [...] day Pending Test Test Name Order Date PROFILE, FASTING (COMPREHENSIVE METABOLI C) 05/29/2024 CBC w DIFF 05/29/2024 Lipid Panel 05/29/2024 Next Appt Details Follow Up: 3 Months, 3 month s, Reason: ov review labs, Routine follow-up Provider Name:Hugo Smith, 07/28/2024 11:30:00 AM, [address] [place] [address] [address], [place], [address], Provider Name:Hugo Smith, 08/21/2024 09:30:00 AM, [address] [place] [address] [address], [place], [address], Progress Notes * Henrique AAMRODOB: 0 (73 yo M)Acc No.[id number]:05/29/2024 Progress Notes Patient:?Henrique AMARO Provider:?Hugo Smith MD :1950???Age:73 Y???Sex:Male Jerry e:05/29/2024 Address:[address] [place], [place] [id number] Subjective: * Chief Complaints: * ???CLLHypertensionHyperlipid emiaEczemaCoronary artery diseaseBenign prostatic hypertrophy * HPI: ???COVID-19 Screening:?dc dthe hctz 04/17, bp at home 1121-125/5z9-67, sees card 10/11, rash left leg and sright forearm better. ?Questions?Have you had any new onset fever, chills, cough, congestion, sore throat, shortness of breath, muscle aches??No ???:? The patient, a 73-year-old male, reported that [...] his arm, which has been improving. * ROS:?General/Constitutional:?pain?only normal aches and pains.?Chills?denies.?Fatigue?admits.?Fever?denies.?Allergy/Immunology:?Admits?Rash.?ENT:?Decreased hearing?denies.?Endocrine:?Denies?Dizziness.?Respiratory:?Cough?denies.?Cardiovascular:?Chest pain with exertion?denies.?Dyspnea on exertion?denies.?Shortness of breath?denies.?Gastrointestinal:?Constipation?occasional.?Decreased appetite?denies.?Diarrhea?denies.?Heartburn?denies.?Nausea?denies.?Rectal bleeding?denies.?Vomiting?denies.?Hematology:?bruising?denies.?petechiae?denies.?Swollen glands?none have been noted.?Genitourinary:?Frequent urination?at night.?Musculoskeletal:?Muscle aches?denies.?Painful joints?denies.?Sciatica?denies.?Weakness?denies.?Skin:?Itching?denies.?Rash?denies.?Skin lesion(s)?denies.?Neurologic:?Difficulty speaking?denies.?Dizziness?denies.?Headache?denies.?Low back pain?denies.?Psychiatric:?Depressed mood?denies.? * Medical History:? * Surgical History:?rotator cu ff surgery, left 12/2016colonoscopy, negative findings 2003colonoscopy, Dr. Briggs, [facility], one inflammatory polyp 2013right shoulder rotor cuff surergy 08/2019left great big toe bone spur/ arthritis 1Cardiac catheterization [facility] 60% occlusion circumflex branch January 2024No history * Hospitalization/Major Diagno stic Procedure:?fractured rib due to fall 12/2019No history * Family History:?Father: dece ased 82 yrs, diagnosed with Cancer, HTN.?Mother: 78 yrs, diagnosed with CVD.?Siblings: , diagnosed [...] Tobacco Non-User?Ex-cigarette smoker ???He was born in [place], [place]. He has been to Karlee for 35 years. They have a step child, Harsha. He has no grandchildren. He is retired from [employer], and has no exposures to toxic materials. He is not a [employer]. * Medications:?TakingRosuvasta tin Calcium 10 MG Tablet 1 tablet Orally [...] the patient * Allergies:?No Known Drug All ergyno[Allergies Verified] Objective: * Vitals:?Ht: 70, Wt:158, BMI: 22.67, BP:120/60, HR:54, Temp:97.2, Ht-cm: 177.8, Wt-k.67. * ???Past Orders: Lab:Lipid Panel * Collection Date 05/24/2024 03/13/2024 12/08/2023 Collection Time 10:10 AM 09:52 AM 08:50 AM Order Date 05/24/2024 03/13/2024 12/08/2023 Triglycerides 114 (Ref Range: <150 mg/dL) 75 [...] Date 05/24/2024 03/13/2024 12/08/2023 White Blood Count 13.0?H (Ref Range: 4.8-10.8 X10*3/uL) 12.9?H (Ref Range: 4.8-10.8 X10*3/uL) 11.1?H (Ref Range: 4.8-10.8 X10*3/uL) Red Blood Count 4.37?L (Ref Range: 4.60-5.80 X10*6/uL) 4.60 (Ref Range: 4.60-5.80 X10*6/uL) 4.44?L (Ref Range: 4.60-5.80 X10*6/uL) Hemoglobin 13.6?L (Ref Range: 14.0-18.0 g/dl) 14.3 (Ref Range: 14.0-18.0 g/dl) 14.1 (Ref Range: 14.0-18.0 g/dl) Hematocrit 40.8?L (Ref Range: 42.0-52.0 %) 43.3 (Ref Range: 42.0-52.0 %) 41.3?L (Ref Range: 42.0-52.0 %) Mean Corpuscular Volume [...] 11.9 (Ref Range: 11.0-16.0 %) Platelet Count 137?L (Ref Range: 160-400 X10*3/uL) 154?L (Ref Range: 160-400 X10*3/uL) 153?L (Ref Range: 160-400 X10*3/uL) Mean Platelet Volume 10.9 (Ref Range: 9.4-12.4 fL) 10.7 (Ref Range: 9.4-12.4 fL) 10.9 (Ref Range: 9.4-12.4 fL) Neutrophils Percent Auto 24.4?L (Ref Range: 45-73 %) 26.0?L (Ref Range: 45-73 %) 26.0?L (Ref Range: 45-73 %) Imm Gran Pct Auto 0.2 (Ref Range: 0.0-0.4 %) 0.1 (Ref Range: 0.0-0.4 %) 0.1 (Ref Range: 0.0-0.4 %) Lymphocytes Percent Auto 68.5?H (Ref Range: 20-40 %) 64.7?H (Ref Range: 20-40 %) 65.9?H (Ref Range: 20-40 %) Monocytes Percent Auto [...] (Ref Range: 0.00-0.03 X10*3/uL) Lymphocytes Absolute Auto 8.9?H (Ref Range: 1.2-4.9 X10*3/uL) 8.4?H (Ref Range: 1.2-4.9 X10*3/uL) 7.3?H (Ref Range: 1.2-4.9 X10*3/uL) Monocytes Absolute Auto [...] X10*3/uL) 0.000 (Ref Range: 0.0-0.012 X10*3/uL) * Lab:[facility] * Collection Date 05/24/2024 03/13/2024 12/08/2023 Collection Time 10:10 AM 09:52 AM 08:50 AM Order Date 05/24/2024 03/13/2024 12/08/2023 Sodium 139 (Ref Range: 135-145 mmol/L) 138 (Ref Range: 135-145 mmol/L) 136 (Ref Range: 135-145 mmol/L) Bilirubin Total 0.6 (Ref Range: 0.0-1.0 mg/dL) 0.4 (Ref Range: 0.0-1.0 mg/dL) 0.7 (Ref Range: 0.0-1.0 mg/dL) Aspartate Amino Transferase 42?H (Ref Range: 5-37 U/L) 53?H (Ref Range: 5-37 U/L) 35 (Ref Range: 5-37 U/L) Alanine Aminotransferase 47?H (Ref Range: 0-40 U/L) 66?H (Ref Range: 0-40 U/L) 31 (Ref Range: [...] Carbon Dioxide 27 (Ref Range: 22-29 mmol/L) 30?H (Ref Range: 22-29 mmol/L) 29 (Ref Range: 22-29 mmol/L) Anion Gap 9?L (Ref Range: 12-20) 9?L (Ref Range: 12-20) 10?L (Ref Range: 12-20) Blood Urea Nitrogen 16 (Ref Range: 9-16 mg/dL) 19?H (Ref Range: 9-16 mg/dL) 19?H (Ref Range: 9-16 mg/dL) Creatinine 1.13 (Ref [...] CBC SEE NOTE SEE NOTE * Examination: ???General Examination: ?GENERAL APPEARANCE:?pleasant, well nourished, well developed, in no acute distress, calm and relaxed, man.?HEAD:?atraumatic, normocephalic.?EYES:?eomi, perrla, anicteric, conjugate.?EARS:?normal.?NOSE:?septum intact.?ORAL CAVITY:?normal, unremarkable.?NECK/THYROID:?no jugular venous distention, no carotid bruit, thyroid normal.?LYMPH NODES:?no enlarged lymph nodes,spleen normal.?SKIN:?no suspicious lesions, anicteric, Moderate onychomycosis.?HEART:?no clicks, gallops, murmurs, or rubs, regular rhythm, [...] sensory exam intact.?PSYCH:?alert, oriented.? Assessment: * Assessment: 1.?Chronic lymphocytic leuke ron - C91.10 (Primary)???Notes :His white blood cell count is 13,000.? His diseases stable and does not require treatment at this time.???2.?Essential hypertension - I10???Notes :His systolic blood pressure is stable. His body mass index was 22. We reviewed the elements of aggressive sodium restriction. He is exercising strenuously. His blood pressure will be checked frequently. Our goal is to maintain this level???3.?Mixed hyperlipidemia - E78.2???Notes :The current fasting lipid profile shows good control of his lipids.? No change in his regimen was made.???4.?Actinic keratosis - L57.0???Notes :He will see the ceramic painter periodically.???5.?Acne rosacea - L71.9???Notes :The acne is very mild and no additional treatment is necessary.???6.?Former smoker - Z87.891???Notes :He is determined to remain abstinent. He has a plan to deal with stress and illness.???7.?Eczema, unspecified type - L30.9???Notes :I have refilled a prescription he gets a compound pharmacy given to him originally by a ceramic painter.??? Plan: * Treatment: 2.?Essential hypertension? Continue Rosuvastatin Calcium Tablet, 10 MG, 1 tablet, Orally, Once a day;?Continue Metoprolol Succinate ER Tablet Extended Release 24 Hour, 25 MG, 1 tablet, Orally, Once a day;?Continue Lisinopril Tablet, 10 MG, TAKE 1 TABLET BY MOUTH EVERY DAY;?Continue Aspirin Tablet Chewable, 81 MG, 1 tablet, Orally, Once a day;?Continue hydroCHLOROthiazide Tablet, 25 MG, 1 tablet in the morning, Orally, Once a day.?LAB: PROFILE, FASTING (COMPREHENSIVE METABOLIC) ?LAB: CBC w DIFF ?LAB: Lipid Panel 3.?Mixed hyperlipidemia?LAB: PROFILE, FASTING (COMPREHENSIVE METABOLIC) ?LAB: CBC w DIFF ?LAB: Lipid Panel * Procedure Codes:? * Preventive Medicine:? ??Counseling:?Smoking/Tobacco Use?Patient counseled on the dangers of tobacco use and urged to quit.?05/29/2024 * Follow Up:?3 Months, 3 month s (Reason: ov review labs, Routine follow-up) * Images: * Sign off status: Completed true * Provider:?Hugo Smith MD Date:?05/20 Generated for Susana wallis/Richard/Leona on:?07/25/2024 04:06 PM EDT History and Physical Notes * [...]
--- OUTSIDE RECORDS SUMMARY | 2024-07-25 16:07 | XMS_ITS ---
Author Organization [facility] Address [address] [place] [address] Care Team Providers Care Stringed Instrument Assembler Name Role Phone Hugo Smith MD Primary Care Provider Unavailab Hugo Beyer Unavailable [phone] REASON FOR VISIT needs to cancel his colon Encounters Encounter Location Date Provider Diagnosis [facility] [address] [place] [phone] 01/04/2024 Hugo Briggs Plan Of Treatment No Information Progress Notes * KAY PACHECODOB: 0 (73 yo M)Acc No.[id number]:01/04/2024 Patient:?KAY PACHECO :1950???Age:73 Y???Sex:Male Address:[address] [place] [address], [phone] * true * Date:? Generated for Patriciai bimal/Richard/eTransmitting on:?07/25/2024 11:31 AM EDT
--- OUTSIDE RECORDS SUMMARY | 2024-07-25 16:07 | XMS_ITS ---
Author Organization [facility] Address [address] [place] [phone] Care Team Providers Care Flight Nurse Name Role Phone Hugo Smith MD Primary Care Provider Unavailab Hugo Beyer Unavailable [phone] REASON FOR VISIT screening Encounters Encounter Location Date Provider Diagnosis [facility] [place] [address] [place] [phone] 02/14/2024 Hugo Briggs Plan Of Treatment No Information Progress Notes * KAY PACHECODOB: 0 (73 yo M)Acc No.[id number]:02/14/2024 COLON WITH MAC Patient:?KAY PACHECO Provider:?Hugo Briggs MD :1950???Age:73 Y???Sex:Male Jerry e:02/14/2024 Address:[address] [place], [place] [id number] Pcp:Hugo Smith MD Subjective: * Chief Complaints: * ???1. Screening. * Medical History:? Objective: * Vitals:? Assessment: Plan: * Treatment: * * The named appointment provid er may or may not be the originator of this progress note, and it is not deemed complete until electronically signed by the appointment provider. Sign off status: Pending * Provider:?Hugo Briggs MD Date:? 024 Generated for Printi ng/Faxing/eTransmitting on:?07/25/2024 11:31 AM EDT
--- OUTSIDE RECORDS SUMMARY | 2024-07-25 16:07 | XMS_ITS ---
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 Name Role Phone Hugo Smith Primary Care Provider Allergies Allergen (clinical drug ingredient) Drug/Non Drug Allergy documented on EMR Reaction Allergy Type Onset Date Status No Known Drug Allergy Unknown Drug Allergy Active REASON FOR VISIT Pain and redness left first toe for 4 weeks, Rash, both forearms, 2020 bone supr removed left foot dorsum, CLL, Coronary artery disease, Benign prostatic hypertrophy Medications Medication SIG (Take, Route, Frequency, Duration) Notes Start Date End Date Status hydroCHLOROthiazide 25 MG 1 tablet in th e morning Orally Once a day Active Rosuvastatin Calcium 10 MG 1 tablet Oral ly Once a day Active Metoprolol Succinate ER 25 MG 1 tablet O rally Once a day Active Lisinopril 10 MG TAKE 1 TABLET BY SEJAL TH EVERY DAY Active Aspirin 81 MG 1 [...] Non-User Ex-cigaret te smoker Vital Signs Temperature 98.4 degrees Fahrenheit 05/18/19 25 Blood pressure systolic 145 mm Hg 05/18/19 25 Blood pressure diastolic 65 mm Hg 025 Heart Rate 57 /min 05/18/2024 Height 70 in 05/18/2024 Weight 156 lbs 05/18/2024 BMI 22.38 kg/m2 05/18/2024 Encounters Encounter Location Date Provider Diagnosis Hugo Smith III, MD [address] [place] [address] DR [place], [place] [id number] 05/18/2024 Hugo Smith Essential hypertensi on I10 ; Chronic lymphocytic leukemia C91.10 ; Actinic keratosis L57.0 ; Retinal tear of right eye H33.311 ; Mixed hyperlipidemia E78.2 ; Eczema, unspecified type L30.9 ; Onychomycosis B35.1 and BPH (benign prostatic hyperplasia) N40.0 Assessments Encounter Date Diagnosis (ICD Code) Assessment Notes Treat ment Notes Treatment Clinical Notes 05/18/2024 Essential hypertension (ICD-10 - I10) His [...] His platelet count and hematocrit are stable. [facility] [place] [address] [place] 66% lymphocytes. No therapy is necessary. There was no adenopathy. No splenomegaly or constitutional B symptoms present today. 05/18/2024 Actinic keratosis (ICD-10 - L57.0) He will see the agronomist periodically. 05/18/2024 Retinal tear of right eye (ICD-10 - H33.311) This has been corrected in his vision has been stable lately. 05/18/2024 Mixed hyperlipidemia (ICD-10 - E78.2) The current fasting lipid profile shows good control of his lipids. His weight is in the normal range. We reviewed his diet. No change in his medication was necessary. 05/18/2024 Eczema, unspecified type (ICD-10 - L30.9) I have refilled a prescription he gets a compound pharmacy given to him originally by a agronomist. 05/18/2024 Onychomycosis (ICD-10 - B35.1) There is no systemic infection and no pain. It was elected to observe this condition at this time. 05/18/2024 BPH (benign prostatic hyperplasia) (ICD-10 - N40.0) He rises from sleep once or twice a night to urinate. According to fluid intake. We have discussed lifestyle modification as a way to reduce nocturia. Plan Of Treatment Medication Medication Name Sig Start Date Stop Date Notes hydroCHLOROthiazide 25 MG 1 tablet in th e morning Orally Once a day Rosuvastatin Calcium 10 MG 1 tablet Orally Once a day Metoprolol Succinate ER 25 MG 1 tablet Orally Once a day Lisinopril 10 MG TAKE 1 TABLET BY SEJAL TH EVERY DAY Aspirin 81 MG 1 tablet Orally Once a day Next Appt Details Follow Up: As Scheduled, Nex t week, Reason: OV, Follow-up on foot pain and review blood work results Provider Name:Hugo Smith, 07/28/2024 11:30:00 AM, [address] [place] [address] EMELI KELLER, [place], [phone], Provider Name:Hugo Smith, 08/21/2024 09:30:00 AM, [address] [place] [address] EMELI KELLER, [place], [phone], Progress Notes * Henrique AMARODOB: 0 (73 yo M)Acc No.[id number]:05/18/2024 Progress Notes Patient:?PREM Osieljose antonio Provider:?Hugo Smith MD :1950???Age:73 Y???Sex:Male Jerry e:05/18/2024 Address:[address] [place], [place] [id number] Subjective: * Chief Complaints: * ???Pain and redness left fir st toe for 4 weeksRash, both [id number] bone supr removed left foot dorsumCLLCoronary artery diseaseBenign prostatic hypertrophy * HPI: ???COVID-19 Screening:?Questions?Have you had any new onset fever, chills, cough, congestion, sore throat, shortness of breath, muscle aches??No ???:?The patient, a 73-year-old male, presented with a complaint of redness and tenderness on the top of his foot, which started about four weeks ago. The symptoms were initially thought to be gout, but a uric acid test came back normal. The patient reported that the symptoms have not subsided and have been constant for the past four weeks. The patient also mentioned a history of a six-mile hike in March, during which he experienced pain underneath his foot. The patient has been unable to walk normally due to the tenderness on his big toe. The patient also reported a rash, which he believed was a reaction to ibuprofen. The patient has been taking lisinopril and a beta dariana for an unspecified condition. He has been to [place] [facility] about the foot where he saw Dr. Chung Emerson ,, who obtained an x-ray and said there were no fractures.? The clinical course he is very long for an acute gout attack.? On physical examination did show a slightly red.? He will be observed without specific treatment at this time.? His chronic lymphocytic leukemia is stable and requires no new treatment.? I answered all of his questions as well as a Covid. * ROS:?General/Constitutional:?pain?Mild intermittent pain in the left?foot, otherwise only normal aches and pains.?Chills?denies.?Fatigue?admits.?Fever?denies.?Allergy/Immunology:?Admits?Rash.?ENT:?Decreased hearing?denies.?Respiratory:?Cough?denies.?Cardiovascular:?Chest pain with exertion?denies.?Dyspnea on exertion?denies.?Shortness of breath?denies.?Gastrointestinal:?Constipation?occasional.?Decreased appetite?denies.?Diarrhea?denies.?Heartburn?denies.?Nausea?denies.?Rectal bleeding?denies.?Vomiting?denies.?Hematology:?bruising?denies.?petechiae?denies.?Swollen glands?none have been noted.?Genitourinary:?Frequent urination?denies.?Musculoskeletal:?Muscle aches?denies.?Painful joints?denies.?Sciatica?denies.?Weakness?denies.?Skin:?Itching?denies.?Rash?denies.?Skin lesion(s)?denies.?Neurologic:?Difficulty speaking?denies.?Dizziness?denies.?Headache?denies.?Low back pain?denies.?Psychiatric:?Depressed mood?denies.? * Medical History:? * Surgical History:?rotator cu ff surgery, left 12/2016colonoscopy, negative findings 2003colonoscopy, Dr. Briggs, [facility], one inflammatory polyp 2013right shoulder rotor cuff surergy 08/2019left great big toe bone spur/ arthritis 1Cardiac catheterization [facility] 60% occlusion circumflex branch January 2024No [...] Tobacco Non-User?Ex-cigarette smoker ???He was born in [place], [place]. He has been to Karlee for 35 years. They have a step child, Harsha. He has no grandchildren. He is retired from [employer], and has no exposures to toxic materials. He is not a [employer]. * Medications:?TakinghydroCHLO ROthiazide 25 MG Tablet 1 tablet in the morning Orally Once a day Rosuvastatin Calcium 10 MG Tablet 1 tablet Orally Once a day Metoprolol Succinate ER 25 MG Tablet Extended Release 24 Hour 1 tablet Orally Once a day Lisinopril 10 MG Tablet TAKE 1 TABLET BY MOUTH EVERY DAY Aspirin 81 MG Tablet Chewable 1 tablet Orally Once a day Medication List reviewed and reconciled with the patientTaking hydroCHLOROthiazide 25 MG Tablet 1 tablet in the morning Orally Once a day Taking Rosuvastatin Calcium 10 MG Tablet 1 tablet Orally Once a day Taking Metoprolol Succinate ER 25 MG Tablet Extended Release 24 Hour 1 tablet Orally Once a day Taking Lisinopril 10 MG Tablet TAKE 1 TABLET BY MOUTH EVERY DAY Taking Aspirin 81 MG Tablet Chewable 1 tablet Orally Once a day Medication List reviewed and reconciled with the patient * Allergies:?No Known Drug All ergyno[Allergies Verified] Objective: * Vitals:?Ht: 70, Wt:156, BMI: 22.38, BP:145/65, HR:57, Temp:98.4, Ht-cm: 177.8, Wt-k.76. * ???Past Orders: Lab:Complete Blood Count Aut o Diff * Collection Date 03/13/2024 12/08/2023 08/11/2023 Collection Time 09:52 AM 08:50 AM 11:26 AM Order Date 03/13/2024 12/08/2023 08/11/2023 White Blood Count 12.9?H (Ref Range: 4.8-10.8 X10*3/uL) 11.1?H (Ref Range: 4.8-10.8 X10*3/uL) 11.4?H (Ref Range: 4.8-10.8 X10*3/uL) Red Blood Count 4.60 (Ref Range: 4.60-5.80 X10*6/uL) 4.44?L (Ref Range: 4.60-5.80 X10*6/uL) 4.58?L (Ref Range: 4.60-5.80 X10*6/uL) Hemoglobin 14.3 (Ref Range: 14.0-18.0 g/dl) 14.1 (Ref Range: 14.0-18.0 g/dl) 14.1 (Ref Range: 14.0-18.0 g/dl) Hematocrit 43.3 (Ref Range: 42.0-52.0 %) 41.3?L (Ref Range: 42.0-52.0 %) 41.8?L (Ref Range: 42.0-52.0 %) Mean Corpuscular Volume 94.1 (Ref Range: 80.0-98.0 fL) 93.0 (Ref Range: 80.0-98.0 fL) 91.3 (Ref Range: 80.0-98.0 fL) Mean Corpuscular Hemoglobin 31.1 (Ref Range: 27.0-33.0 pg) 31.8 (Ref Range: 27.0-33.0 pg) 30.8 (Ref Range: 27.0-33.0 pg) Mean Corpuscular HGB Conc 33.0 (Ref Range: 31.0-36.0 g/dl) 34.1 (Ref Range: 31.0-36.0 g/dl) 33.7 (Ref Range: 31.0-36.0 g/dl) Red Cell Distribution Width 12.2 (Ref Range: 11.0-16.0 %) 11.9 (Ref Range: 11.0-16.0 %) 12.8 (Ref Range: 11.0-16.0 %) Platelet Count 154?L (Ref Range: 160-400 X10*3/uL) 153?L (Ref Range: 160-400 X10*3/uL) 172 (Ref Range: 160-400 X10*3/uL) Mean Platelet Volume 10.7 (Ref Range: 9.4-12.4 fL) 10.9 (Ref Range: 9.4-12.4 fL) 11.2 (Ref Range: 9.4-12.4 fL) Neutrophils Percent Auto 26.0?L (Ref Range: 45-73 %) 26.0?L (Ref Range: 45-73 %) 23.1?L (Ref Range: 45-73 %) Imm Gran Pct Auto 0.1 (Ref Range: 0.0-0.4 %) 0.1 (Ref Range: 0.0-0.4 %) 0.2 (Ref Range: 0.0-0.4 %) Lymphocytes Percent Auto 64.7?H (Ref Range: 20-40 %) 65.9?H (Ref Range: 20-40 %) 68.6?H (Ref Range: 20-40 %) Monocytes Percent Auto 7.9 (Ref Range: 2-11 %) 6.2 (Ref Range: 2-11 %) 5.5 (Ref Range: 2-11 %) Eosinophils Percent Auto 0.8 (Ref Range: 0-4 %) 1.2 (Ref Range: 0-4 %) 1.8 (Ref Range: 0-4 %) Basophils Percent Auto 0.5 (Ref Range: 0-2 %) 0.6 (Ref Range: 0-2 %) 0.8 (Ref Range: 0-2 %) NRBC Pct Auto 0.0 (Ref Range: 0.0-0.2 /100WBC) 0.0 (Ref Range: 0.0-0.2 /100WBC) 0.0 (Ref Range: 0.0-0.2 /100WBC) Neutrophils Absolute Auto 3.4 (Ref Range: 2.0-8.3 x10*3/uL) 2.9 (Ref Range: 2.0-8.3 x10*3/uL) 2.6 (Ref Range: 2.0-8.3 x10*3/uL) Imm Gran Abs Auto 0.01 (Ref Range: 0.00-0.03 X10*3/uL) 0.01 (Ref Range: 0.00-0.03 X10*3/uL) 0.02 (Ref Range: 0.00-0.03 X10*3/uL) Lymphocytes Absolute Auto 8.4?H (Ref Range: 1.2-4.9 X10*3/uL) 7.3?H (Ref Range: 1.2-4.9 X10*3/uL) 7.8?H (Ref Range: 1.2-4.9 X10*3/uL) Monocytes Absolute Auto 1.0 (Ref Range: 0.1-1.2 X10*3/uL) 0.7 (Ref Range: 0.1-1.2 X10*3/uL) 0.6 (Ref Range: 0.1-1.2 X10*3/uL) Eosinophils Absolute Auto 0.1 (Ref Range: 0.0-0.4 X10*3/uL) 0.1 (Ref Range: 0.0-0.4 X10*3/uL) 0.2 (Ref Range: 0.0-0.4 X10*3/uL) Basophils Absolute Auto 0.1 (Ref Range: 0.0-0.2 X10*3/uL) 0.1 (Ref Range: 0.0-0.2 X10*3/uL) 0.1 (Ref Range: 0.0-0.2 X10*3/uL) NRBC Abs Auto 0.000 (Ref Range: 0.0-0.012 X10*3/uL) 0.000 (Ref Range: 0.0-0.012 X10*3/uL) 0.000 (Ref Range: 0.0-0.012 X10*3/uL) * Lab:Pathologist Review - CBC * Collection Date 03/13/2024 12/11/2022 Collection Time 09:52 AM 12:10 PM Order Date 03/13/2024 12/11/2022 Pathologist Review - CBC SEE NOTE SEE NOTE * Lab:Comprehensive [place]. Pane l Fast * Collection Date 03/13/2024 12/08/2023 08/11/2023 Collection Time 09:52 AM 08:50 AM 11:26 AM Order Date 03/13/2024 12/08/2023 08/11/2023 Sodium 138 (Ref Range: 135-145 mmol/L) 136 (Ref Range: 135-145 mmol/L) 137 (Ref Range: 135-145 mmol/L) Bilirubin Total 0.4 (Ref Range: 0.0-1.0 mg/dL) 0.7 (Ref Range: 0.0-1.0 mg/dL) 0.7 (Ref Range: 0.0-1.0 mg/dL) Aspartate Amino Transferase 53?H (Ref Range: 5-37 U/L) 35 (Ref Range: 5-37 U/L) 33 (Ref Range: 5-37 U/L) Alanine Aminotransferase 66?H (Ref Range: 0-40 U/L) 31 (Ref Range: 0-40 U/L) 31 (Ref Range: 0-40 U/L) Total Protein 6.9 (Ref Range: 6.5-8.0 g/dL) 6.9 (Ref Range: 6.5-8.0 g/dL) 7.1 (Ref Range: 6.5-8.0 g/dL) Albumin Level 4.4 (Ref Range: 3.5-5.0 g/dL) 4.3 (Ref Range: 3.5-5.0 g/dL) 4.3 (Ref Range: 3.5-5.0 g/dL) Alkaline Phosphatase 47 (Ref Range: 39-117 U/L) 39 (Ref Range: 39-117 U/L) 41 (Ref Range: 39-117 U/L) Potassium 4.2 (Ref Range: 3.3-5.1 mmol/L) 4.1 (Ref Range: 3.3-5.1 mmol/L) 4.3 (Ref Range: 3.3-5.1 mmol/L) Chloride 103 (Ref Range: 96-108 mmol/L) 101 (Ref Range: 96-108 mmol/L) 102 (Ref Range: 96-108 mmol/L) Carbon Dioxide 30?H (Ref Range: 22-29 mmol/L) 29 (Ref Range: 22-29 mmol/L) 28 (Ref Range: 22-29 mmol/L) Anion Gap 9?L (Ref Range: 12-20) 10?L (Ref Range: 12-20) 11?L (Ref Range: 12-20) Blood Urea Nitrogen 19?H (Ref Range: 9-16 mg/dL) 19?H (Ref Range: 9-16 mg/dL) 23?H (Ref Range: 9-16 mg/dL) Creatinine 1.21 (Ref Range: 0.5-1.4 mg/dL) 1.13 (Ref Range: 0.5-1.4 mg/dL) 1.12 (Ref Range: 0.5-1.4 mg/dL) Estimated Glomerular Filt Rate 59 > 60 > 60 Glucose Fasting 97 (Ref Range: 60-99 mg/dL) 90 (Ref Range: 60-99 mg/dL) 95 (Ref Range: 60-99 mg/dL) Calcium 9.7 (Ref Range: 8.4-10.2 mg/dL) 9.9 (Ref Range: 8.4-10.2 mg/dL) 9.7 (Ref Range: 8.4-10.2 mg/dL) * Lab:Lipid Panel * Collection Date 03/13/2024 12/08/2023 08/11/2023 Collection Time 09:52 AM 08:50 AM 11:26 AM Order Date 03/13/2024 12/08/2023 08/11/2023 Triglycerides 75 (Ref Range: <150 mg/dL) 97 (Ref Range: <150 mg/dL) 94 (Ref Range: <150 mg/dL) Cholesterol 140 (Ref Range: <200 mg/dL) 133 (Ref Range: <200 mg/dL) 170 (Ref Range: <200 mg/dL) LDL Cholesterol Calculated 64 (Ref Range: <100 mg/dL) 59 (Ref Range: <100 mg/dL) 91 (Ref Range: <100 mg/dL) HDL Cholesterol 61 (Ref Range: >40 mg/dL) 55 (Ref Range: >40 mg/dL) 61 (Ref Range: >40 mg/dL) * Lab:SLIDE REVIEW * Collection Date 03/13/2024 12/08/2023 08/11/2023 Collection Time 09:52 AM 08:50 AM 11:26 AM Order Date 03/13/2024 12/08/2023 08/11/2023 SLIDE REVIEW VERIFIED VERIFIED VERIFIED * Examination: ???General Examination: ?GENERAL APPEARANCE:?pleasant, well [...] lymphocytic leuke ron - C91.10 (Primary)???Notes :His platelet count and hematocrit are stable. [facility] [place] [address] with 66% lymphocytes. No therapy is necessary. There was no adenopathy. No splenomegaly or constitutional B symptoms present today.???2.?Essential hypertension - I10???Notes :His systolic blood pressure is slightly high at 145. His body mass index was 22. We reviewed the elements of aggressive sodium restriction. He is exercising strenuously. His blood pressure will be checked frequently. Our goal is to reduce his systolic by 20 points.???3.?Actinic keratosis - L57.0???Notes :He will see the agronomist periodically.???4.?Retinal tear of right eye - H33.311???Notes :This has been corrected in his vision has been stable lately.???5.?Mixed hyperlipidemia - E78.2???Notes :The current fasting lipid profile shows good control of his lipids. His weight is in the normal range. We reviewed his diet. No change in his medication was necessary.???6.?Eczema, unspecified type - L30.9???Notes :I have refilled a prescription he gets a compound pharmacy given to him originally by a agronomist.???7.?Onychomycosis - B35.1???Notes :There is no systemic infection and no pain. It was elected to observe this condition at this time.???8.?BPH (benign prostatic hyperplasia) - N40.0???Notes :He rises from sleep once or twice a night to urinate. According to fluid intake. We have discussed lifestyle modification as a way to reduce nocturia.??? Plan: * Treatment: * Procedure Codes:? * Follow Up:?As Scheduled, Nex t week (Reason: OV, Follow-up on foot pain and review blood work results) * Images: * Sign off status: Completed true * Provider:?Hugo Smith MD Date:?04/21 Generated for Susana wallis/Richard/Leona on:?07/25/2024 04:06 PM [...]
== END 2024-07-25 13:13 | disposition home or self-care (01) ==
LOC: HO.LNP 13:12
PROVIDERS: Visit Provider Internal Medicine Medical Oncology
DX: L08.9 Local infection of the skin and subcutaneous tissue, unspecified (principal)
CPT/HCPCS: 87070; 87205

== ENCOUNTER 2024-08-17 10:44 | Outpatient (REF) | payer MEDICARE, SELFPAY ==
--- OUTSIDE RECORDS SUMMARY | 2024-08-17 12:19 | XMS_ITS | Continuity of Care Document ---
Author Organization [facility] Address [address] [place] [address] Phone Care Team Providers Care Router Operator Pin Name Role Phone Neha RODRIGUEZ, Greyson Unavailable [...] on Encounter [facility], [address], [place], [place], [id number], [place] tel:[phone] [facility] JESUS No Information 1 Neha Rubi. [address], [address], [place], [place], [id number] , [place]. tel:[phone] Offic/outpt E&m Estab Low-mod [facility], [address], [place], [place], [id number], [place] tel:[phone] [facility] left shoulder pain (chief complaint) left sided rib pain (chief complaint) left heel pain (chief complaint) SPRAIN ROTATOR CUFFFRACTURE RIB NOS-CLOSEDCon tusion - Foot 1 Neha Rubi. [address], [address], [place], [place], [id number] , [place]. tel:[phone] Referring Provider: Greyson Reid, [address], [place], [address] . tel:[phone] Offic/outpt E&m New Mod Sever [facility], [address], [place], [place], [address], [place] tel:[phone] [facility] left rib pain (chief complaint) left heel pain (chief complaint) SPRAIN ROTATOR CUFFFracture, ribContusion of heel 1 Neha Rubi. [address], [address], [place], [place], [address] , [place]. tel:[phone] Referring Provider: Greyson Reid, [address], [place], [address] . tel:[phone] Family History Family Member Type Diagnosis Age At Onset Problem (finding) Family history of Arthr itis Problem (finding) Family history of malignant neoplasm of lung Problem (finding) Family history of hyper tension Problem (finding) Family history of alcoh olism Problem (finding) Family history of Stoma ch Ulcers Payers Payer name Insurance type Covered alliance party ID Authoriza tion(s) [employer] [facility] [id number] Social History Type Description Quantity Date Captured [...]
[2024-08-17 14:13] LABS: Basophils Absolute Auto 0.1 X10*3/uL (0.0-0.2); Basophils Percent Auto 0.5 % (0-2); Eosinophils Absolute Auto 0.2 X10*3/uL (0.0-0.4); Eosinophils Percent Auto 1.4 % (0-4); Hematocrit 40.4 % (42.0-52.0); Hemoglobin 13.2 g/dl (14.0-18.0); Imm Gran Abs Auto 0.02 X10*3/uL (0.00-0.03); Imm Gran Pct Auto 0.2 % (0.0-0.4); Lymphocytes Percent Auto 73.1 % (20-40); MANUAL DIFF FLAG SCAN; Mean Corpuscular HGB Conc 32.7 g/dl (31.0-36.0); Mean Corpuscular Hemoglobin 30.8 pg (27.0-33.0); Mean Corpuscular Volume 94.2 fL (80.0-98.0); Mean Platelet Volume 11.8 fL (9.4-12.4); Monocytes Absolute Auto 0.6 X10*3/uL (0.1-1.2); Monocytes Percent Auto 5.3 % (2-11); Neutrophils Absolute Auto 2.2 x10*3/uL (2.0-8.3); Neutrophils Percent Auto 19.5 % (45-73); Platelet Count 131 X10*3/uL (160-400); Red Blood Count 4.29 X10*6/uL (4.60-5.80); Red Cell Distribution Width 12.4 % (11.0-16.0); White Blood Count 11.4 X10*3/uL (4.8-10.8)
[2024-08-17 14:14] LABS: Lymphocytes Absolute Auto 8.3 X10*3/uL (1.2-4.9)
[2024-08-17 14:31] LABS: Alanine Aminotransferase 44 U/L (0-40); Albumin Level 3.9 g/dL (3.5-5.0); Alkaline Phosphatase 48 U/L (39-117); Anion Gap 10 (12-20); Aspartate Amino Transferase 43 U/L (5-37); Bilirubin Total 0.5 mg/dL (0.0-1.0); Blood Urea Nitrogen 21 mg/dL (9-16); Calcium 9.2 mg/dL (8.4-10.2); Carbon Dioxide 27 mmol/L (22-29); Chloride 108 mmol/L (96-108); Cholesterol 125 mg/dL (<200); Estimated Glomerular Filt Rate > 60; Glucose Fasting 93 mg/dL (60-99); HDL Cholesterol 55 mg/dL (>40); LDL Cholesterol Calculated 56 mg/dL (<100); Potassium 4.5 mmol/L (3.3-5.1); Sodium 140 mmol/L (135-145); Total Protein 6.3 g/dL (6.5-8.0); Triglycerides 71 mg/dL (<150)
[2024-08-17 16:51] LABS: SCAN SMEAR FLAG 1; SLIDE REVIEW VERIFIED
== END 2024-08-17 10:45 | disposition home or self-care (01) ==
LOC: HO.10HDL 10:44
PROVIDERS: Visit Provider Internal Medicine Medical Oncology
DX: I10 Essential (primary) hypertension (principal); E78.2 Mixed hyperlipidemia; C91.10 Chronic lymphocytic leukemia of B-cell type not having achieved remission
CPT/HCPCS: 36415; 80053; 80061; 85025

== ENCOUNTER 2024-11-15 10:26 | Outpatient (REF) | payer MEDICARE, SELFPAY ==
--- OUTSIDE RECORDS SUMMARY | 2024-02-14 07:30 | XMS_ITS ---
Author Organization [facility] Address [address] [place] [address] [place] [phone] Care Team Providers Care Environmental Technology Professor Name Role Phone Hugo Smith MD Primary Care Provider Unavailab Hugo Beyer Unavailable [phone] REASON FOR VISIT screening Encounters Encounter Location Date Provider Diagnosis [facility] [place] Outpatient [address] [place] [id number] 02/14/2024 Hugo Briggs Plan Of Treatment Next Appt Details Provider Name:Hugo Briggs , 12/12/2024 10:10:00 AM, [address] [place] [address], Suite [facility], [place], [phone], Progress Notes * KAY PACHECODOB: 0 (74 yo M)Acc No.[id number]:02/14/2024 COLON WITH MAC Patient: KAY SOTELO Provider: Chris Briggs MD :1950 A ge:73 Y S ex:Male Date:02/14/2024 Address:[address] [place], [place] [id number] Pcp:Hugo Smith MD Subjective: * Chief Complaints: [...] Briggs MD Date: 1 Generated for Susana wallis/Richard/Niiitting on: 0 11/15/2024 11:18 AM EDT
--- OUTSIDE RECORDS SUMMARY | 2024-11-15 11:18 | XMS_ITS ---
Author Name Zechariah Crandall Address Unknown Organization [facility] Care Team Providers Care Pharmacy Tech Name Role Phone Unavailable Primary Care Physician Unavailab le History Of Present Illness This is a 74 year old male who is following up for skin infection nos on the left central frontal scalp, left medial frontal scalp, right central druze, and left central druze. He was seen on 2024, at which time The following treatment regimen was given: Continue the following treatment(s): -- gentle cleanser and moisturizer. Samples given to patient: CeraVe with hydrourea and AmLactin coupon. Since then, the patient states the skin infection nos is better.The patient presents for further evaluation and management.The patient followed the treatment plan as directed.Interval History: Patient states that his condition is improved but not completely resolved. Medications Medication Generic Name RxNorm Strength Strength Unit Route Dose Dose Form Frequency Date Started Date Ended Status Indication Sig Adult Low Dose Aspirin aspirin 81 mg Oral 1 table t, delay ed relea se (ente yasemin khoury d) daily active lisinopril 10 mg Oral 1 table t daily active metoprolol succinate 277152 25 mg Oral 1 Table t, Exten ded Relea se 24 hr daily active rosuvastati n rosuvast atin 10 mg Oral 1 table t daily active Problems Problem Code Type Status Date of Diagnosis Date of Resolution Inflamed seborrheic keratosis (disorder) 202363807( SNOMED) Diagnosis active 11/14/2024 Seborrheic keratosis (disorder) 260126094( SNOMED) Diagnosis active 11/14/2024 Surgical follow-up (finding) 458109098( SNOMED) Diagnosis active 09/15/2024 Epidermoid cyst of skin (disorder) 489729346( SNOMED) Diagnosis active 09/06/2024 Localized infection of skin AND/OR subcutaneous tissue (disorder) 016634114( SNOMED) Diagnosis active 08/07/2024 Localized infection of skin AND/OR subcutaneous tissue (disorder) 442083804( SNOMED) Diagnosis active 07/27/2024 Epidermoid cyst of skin (disorder) 829812905( SNOMED) Diagnosis active 07/27/2024 Surgical follow-up (finding) 321799241( SNOMED) Diagnosis active 06/26/2024 Chilblains (disorder) 91486826(S NOMED) Diagnosis active 06/26/2024 Eczema (disorder) 63028276(S NOMED) Diagnosis active 06/26/2024 Epidermoid cyst of skin (disorder) 839596151( SNOMED) Diagnosis active 06/26/2024 Epidermoid cyst of skin (disorder) 621023673( SNOMED) Diagnosis active 06/14/2024 Chilblains (disorder) 53173774(S NOMED) Diagnosis active 06/14/2024 Actinic keratosis (disorder) ( SNOMED) Diagnosis active 11/16/2023 Seborrheic keratosis (disorder) 154454660( SNOMED) Diagnosis active 11/16/2023 Disorder of pigmentation (disorder) 605734448( SNOMED) Diagnosis active 11/16/2023 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) 92567687(S NOMED) Diagnosis active 11/16/2023 Epidermoid cyst of skin (disorder) 977548746( SNOMED) Diagnosis active 11/16/2023 Inflamed seborrheic keratosis (disorder) 028358517( SNOMED) Diagnosis active 11/16/2023 Onychomycosis caused by dermatophyte (disorder) 560897559( SNOMED) Diagnosis active 11/16/2023 Patient encounter status (finding) 580615786( SNOMED) Diagnosis active 11/16/2023 Actinic keratosis (disorder) ( SNOMED) Diagnosis active 04/27/2023 Patient encounter status (finding) 593285610( SNOMED) Diagnosis active 04/27/2023 Neoplasm of uncertain behavior of skin (disorder) 49222915(S NOMED) Diagnosis active 02/11/2023 Actinic keratosis (disorder) ( SNOMED) Diagnosis active 02/11/2023 Patient encounter status (finding) 092806295( SNOMED) Diagnosis active 02/11/2023 Actinic keratosis (disorder) ( SNOMED) Diagnosis active 04/22/2022 Actinic keratosis (disorder) ( SNOMED) Diagnosis active 02/12/2022 Neoplasm of uncertain behavior of skin (disorder) 06996915(S NOMED) Diagnosis active 11/20/2021 Actinic keratosis (disorder) ( SNOMED) Diagnosis active 04/24/2021 Melanocytic nevus of ear (disorder) 476886820( SNOMED) Diagnosis active 04/03/2021 Actinic keratosis (disorder) ( SNOMED) Diagnosis active 04/03/2021 Actinic keratosis (disorder) ( SNOMED) Diagnosis active 03/18/2021 Actinic keratosis (disorder) ( SNOMED) Diagnosis active 02/04/2021 Neoplasm of uncertain behavior of skin (disorder) 29819763(S NOMED) Diagnosis active 01/09/2021 Actinic keratosis (disorder) ( SNOMED) Diagnosis active 01/09/2021 Seborrheic keratosis (disorder) 871717194( SNOMED) Diagnosis active 01/09/2021 Follicular cysts of skin and subcutaneous tissue (disorder) 472999688( SNOMED) Diagnosis active 01/09/2021 Disorder of pigmentation (disorder) 476762864( SNOMED) Diagnosis active 01/09/2021 Neoplasm of uncertain behavior of skin D48.5(ICD- 10) Diagnosis active 11/28/2019 Actinic keratosis L57.0(ICD- 10) Diagnosis active 11/28/2019 Other rosacea L71.8(ICD- 10) Diagnosis active 11/28/2019 Actinic keratosis (disorder) ( SNOMED) Diagnosis active 10/13/2017 Actinic keratosis (disorder) ( SNOMED) Diagnosis active 04/16/2017 Senile hyperkeratosis (disorder) 170655495( SNOMED) Diagnosis active 01/22/2017 Actinic keratosis (disorder) ( SNOMED) Diagnosis active 01/07/2016 Actinic keratosis (disorder) ( SNOMED) Diagnosis active 08/20/2015 Actinic keratosis (disorder) ( SNOMED) Diagnosis active 05/09/2014 Disorder of skin and/or subcutaneous tissue (disorder) 89942244(S NOMED) Diagnosis active 02/08/2014 Actinic keratosis (disorder) ( SNOMED) Diagnosis active 10/03/2013 Leukemia, disease (disorder) 89584610(S NOMED) Problem active Actinic keratosis (disorder) ( SNOMED) Problem active History of hypertension (situation) 175227840( SNOMED) Problem active Hypercholesterolemia (disorder) 92346990(S NOMED) Problem active Results No data Encounters Service provided at [facility], [address] [place] [address], [address], [place], [place] [id number]. Office phone number is [phone]. Office fax number is [phone]. Encounter Diagnosis Location Date / Time Type Irritated Seborrheic Keratos is (L82.0)Irritated Seborrheic Keratosis (L82.0)Seborrheic Keratoses (L82.1) [facility] 11/14/2024 15:00:00 [facility] [id number] Reason For Referral I saw Henrique Amaro in the office on November 14, 2024.Below is a summary of our visit:Irritated Seborrheic Keratosis: 15mm pink-manuel keratotic plaque located on the left superior upper back.Plan: Counseling and Shave Removal.Irritated Seborrheic Keratosis: pink, scaly plaque located on the scalp.Plan:Counseling and Treatment Regimen.Seborrheic Keratoses: manuel and brown keratotic papules distributed on the body throughout.Plan: Counseling.My impression and plan was the followin.Irritated Seborrheic Keratosis, Status: Inadequately ControlledCounselingShave Removal: left superior upper back; Size of Lesion in cm - 1.5; Biopsy Method - Personna blade.2.Irritated Seborrheic Keratosis, Status: Not At Treatment GoalCounselingTreatment Regimen: OTC Regimen - -- CeraVe with hydroxyurea;.3.Seborrheic KeratosesCounseling Procedures Procedure Date Documentation of current medications (pr ocedure) 11/14/2024 12:00 am UTC Shave excision of skin lesion (procedure ) 11/14/2024 12:00 am UTC Removal of suture (procedure) 09/15/2024 12:00 am UTC Excision (procedure) 09/06/2024 12:00 am UTC Documentation of current medications (pr ocedure) 08/07/2024 12:00 am UTC Documentation of current medications (pr ocedure) 06/26/2024 12:00 am UTC Removal of suture (procedure) 06/26/2024 12:00 am UTC Documentation of current medications (pr ocedure) 06/14/2024 12:00 am UTC Excision (procedure) 06/14/2024 12:00 am UTC Destruction of premalignant skin lesion (procedure) 04/27/2023 12:00 am UTC Cryotherapy of skin lesion with liquid n itrogen (procedure) 11/20/2021 12:00 am UTC Shave biopsy (procedure) 11/20/2021 12:0 0 am UTC Shave biopsy (procedure) 04/03/2021 12:0 0 am UTC Cryotherapy of skin lesion with liquid n itrogen (procedure) 04/03/2021 12:00 am UTC Shave biopsy (procedure) 01/09/2021 12:0 0 am UTC Cryotherapy of skin lesion with liquid n itrogen (procedure) 01/09/2021 12:00 am UTC Shave biopsy (procedure) 11/28/2019 12:0 0 am UTC Cryotherapy of skin lesion with liquid n itrogen (procedure) 11/28/2019 12:00 am UTC Documentation of past medical history (p rocedure) Documentation of past medical history (p rocedure) Documentation of past medical history (p rocedure) Documentation of past medical history (p rocedure) Documentation of past medical history (p rocedure) Documentation of past medical history (p rocedure) Documentation of past medical history (p rocedure) Documentation of past medical history (p rocedure) Documentation of past medical history (p rocedure) Documentation of past medical history (p rocedure) Documentation of past medical history (p rocedure) Documentation of past medical history (p rocedure) Documentation of past medical history (p rocedure) Documentation of past medical history (p rocedure) Review Of Systems Provider reviewed on Nov 14, 2024.A focused review of systems was performed including Integumentary.No Problems With Healing And No Problems With Scarring (hypertrophic Or Keloid). Assessment 1.Irritated Seborrheic Keratosis, Status: Inadequately ControlledCounselingShave Removal: left superior upper back; Size of Lesion in cm - 1.5; Biopsy Method - Personna blade.2.Irritated Seborrheic Keratosis, Status: Not At Treatment GoalCounselingTreatment Regimen: OTC Regimen - -- CeraVe with hydr oxyurea;.3.Seborrheic KeratosesCounseling Plan of Care Future visit for 02/06/2025 - Follow up in 3 months for: Skin Check - 15 minutes (as previously scheduled). Other Instructions: Annual CSE (January). Other Instructions: Annual CSE (January). Code Detail Instructions 813008 cephalexin 500 mg capsule Take o ne capsule by mouth twice a day for 10 days. 194695 fluorouracil 5 % topical cream A pply sparingly to sun damaged skin on the scalp and face twice a day for 2-4 weeks as directed. STOP if it becomes intolerable, let heal, then begin again 199169 mupirocin 2 % topical ointment A pply to biopsy sites BID until healed. Instructions * I counseled the patient regarding the following:Skin Care: Irritated Seborrheic Keratoses can be removed with cryotherapy.Expectations: Irritated Seborrheic Keratoses are benign growths that become inflamed, itchy, tender, traumatized, caught on clothing, or exhibit bleeding or crusting.Contact Offi ce if: If Irritated Seborrheic Keratosis fails to resolve despite treatment, or if you develop a side effect from therapy, such as unbearable crusting, scabbing, redness and tenderness. * I counseled the patient regarding the following:Skin Care: Irritated Seborrheic Keratoses can be removed with cryotherapy.Expectations: Irritated Seborrheic Keratoses are benign growths that become inflamed, itchy, tender, traumatized, caught on clothing, or exhibit bleeding or crusting.Contact Offi ce if: If Irritated Seborrheic Keratosis fails to resolve despite treatment, or if you develop a side effect from therapy, such as unbearable crusting, scabbing, redness and tenderness. * Recommend the following Mnvm-Yzo-[id number] treatment(s): -- CeraVe with hydroxyurea. * I counseled the patient regarding the following:Skin Care: Seborrheic keratoses are benign. No treatment is necessary.Expectations: Seborrheic keratoses are benign warty growths. Patients get more ofthem as they age. Social History Code Activity Start Date End Date [id number] (Ingo MoneyOMED) Former smoker Sex male Sexual orientation Unspecified Gender identity Unspecified Vital Signs No data
--- OUTSIDE RECORDS SUMMARY | 2024-11-15 11:19 | XMS_ITS | Patient Health Record ---
Author Organization [facility] Address [address] [place] [address] Care Team Providers Care Security Incident Handler Name Role Phone Hugo Smith MD Primary Care Provider Unavailab Anushka Gonzalez Unavailable [phone] Allergies No Known Allergies Reason For Referral No Information Medications Medication SIG (Take, Route, Frequency, Duration) Notes Start Date End Date Status Rosuvastatin Calcium 10 MG 1 tablet Oral ly Once a day Active Metoprolol Succinate ER 25 MG 1 tablet Orally Once a day Active Multivitamin Active Hydrocortisone 2.5 % 1 application Exter jung to affected areas of itching irritated skin on foot/feet Twice a day; Duration: 30 days Active Lisinopril 10 MG 1 tablet Orally Once a day Active Aspirin 81 Active Social History Tobacco Use: Social History Observation Description Date Details (start date - stop date) Never Smoker NA - NA Tobacco use other than smoking: Question Answer Notes Are you an other tobacco user? No Tobacco Control (Standard) Question Answer Notes Tobacco use: Nonsmoker Additional Findings: Tobacco non-user Current no nsmoker AUDIT-C (Standard) Question Answer Notes Did you have a drink contain ing alcohol in the past year? Yes How often did you have a dri nk containing alcohol in the past year? Declined to specify (0 point) How many drinks did you have on a typical day when you were drinking in the past year? Declined to specify (0 point) How often did you have six o r more drinks on one occasion in the past year? 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 Assessments Encounter Date Diagnosis (ICD Code) Assessment Notes Treatment Notes Treatment Clinical Notes Section Notes 08/29/2024 Pain in left foot (ICD-10 - M79.672) 08/29/2024 Plantar fibromatosis (ICD-10 - M72.2) 08/29/2024 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 - 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.22) 08/29/2024 Nummular eczematous dermatitis (ICD-10 - L30.0) Plan Of Treatment Pending Test Test Name Order Date X ray : Foot, left 3V 08/29/2024 Insurance Providers Payer Name Payer Address Payer Phone Subscriber Number Group Number Insured Name Patient Relationship to Insured Coverage Start Date Coverage End Date Medicare National [employer] [address] [place] [address] [id number] Henrique Amaro Self - patient is the insured 5 [employer] [address] [place] [address] [id number] Henrique Amaro Self - patient is the insured Medical (General) History Medical History History ICD Code Cancer Cataracts Heart disease High Blood Pressure Measles Mumps Chicken pox Surgical History Surgery Date(Month/Year) left rotator cuff clean out 12/2017 right rotator cuff clean out 11/2019 left bone spur 07/2020 cyst, back 06/2024
--- OUTSIDE RECORDS SUMMARY | 2024-11-15 11:19 | XMS_ITS | Patient Health Record ---
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 Name Role Phone Hugo Smith Primary Care Provider Allergies Allergen (clinical drug ingredient) Drug/Non Drug Allergy documented on EMR Reaction Allergy Type Onset Date Status No Known Drug Allergy Unknown Drug Allergy Active No Known Food Allergy Unknown Drug Allergy Active Results Component Value Reference Range Notes Routine Culture Reviewed date:07/27/2024 08:13:39 PM Interpretation: Performing Lab:[address] [phone] Notes/Report: FOREHEAD Routine Culture Report - external Routine Culture 1+ Mixed skin gurdeep URINE DIP STICK Reviewed date:08/21/2024 10:39:00 AM Interpretation: Performing Lab: Notes/Report: SG 1.010 1.005 - 1.025 pH 6.5 5.0 - 9.0 BETO Negative Negative - NIT Negative Negative - PRO 15 Negative - Trace GLU Negative Negative - KET 5 Negative - UBG 0.2 0.1 - 1.8 ANJU Negative 0.2 - 1.3 BLD Positive Negative - Complete Blood Count Auto Di ff Reviewed date:12/17/2023 01:29:23 PM Interpretation: Performing Lab:[address] [phone] Notes/Report: White Blood Count 11.1 4.8-10.8 X10*3/uL [...] X10*3/uL NRBC Abs Auto 0.000 0.0-0.012 X10*3/uL CORRECTED REPORT CORRECTED REPORT [facility]. Panel Fa st Reviewed date:12/17/2023 01:29:23 PM Interpretation: Performing Lab:[facility], [address] [place] [phone] Notes/Report: Sodium 136 135-145 mmol/L Potassium 4.1 3.3-5.1 mmol/L Chloride 101 96-108 mmol/L Carbon Dioxide 29 22-29 mmol/L Anion Gap 10 12-20 Blood Urea Nitrogen 19 9-16 mg/dL Creatinine 1.13 0.5-1.4 mg/dL Estimated Glomerular Filt Rate > 60 NOTE: For -[place] individuals, multiply the result by 1.210. Chronic [...] Panel Reviewed date:12/17/2023 01:29:23 PM Interpretation: Performing Lab:[address] [phone] Notes/Report: Triglycerides 97 <150 mg/dL Desirable Triglyceride: [...] REVIEW Reviewed date:12/17/2023 01:29:23 PM Interpretation: Performing Lab:[facility], [address] [place] [phone] Notes/Report: SLIDE REVIEW VERIFIED Complete Blood Count Auto Di ff Reviewed date:03/28/2024 05:40:08 AM Interpretation: Performing Lab:[facility], [address] [place] [phone] Notes/Report: White Blood Count 12.9 4.8-10.8 X10*3/uL [...] X10*3/uL NRBC Abs Auto 0.000 0.0-0.012 X10*3/uL CORRECTED REPORT CORRECTED REPORT CORRECTED REPORT Pathologist Review - CBC Reviewed date:03/28/2024 05:40:08 AM Interpretation: Performing Lab:[facility], [address] [place] [phone] Notes/Report: Pathologist Review - CBC SEE NOTE Lymphocytes are increased in number and somewhat monotonous appearing; smudge cells are seen. The patient's reported history of CLL is noted. - Kyle Ramirez M.D. Pathology [facility]. Panel [facility] Reviewed date:03/28/2024 05:40:08 AM Interpretation: Performing Lab:[facility], [address] [place] [phone] Notes/Report: Sodium 138 135-145 mmol/L Potassium 4.2 [...] Panel Reviewed date:03/28/2024 05:40:08 AM Interpretation: Performing Lab:[facility], [address] [place] [phone] Notes/Report: Triglycerides 75 <150 mg/dL Desirable Triglyceride: [...] REVIEW Reviewed date:03/28/2024 05:40:08 AM Interpretation: Performing Lab:[facility], [address] [place] [phone] Notes/Report: SLIDE REVIEW VERIFIED Complete Blood Count Auto Di ff Reviewed date:05/26/2024 08:58:25 AM Interpretation: Performing Lab:[facility], [address] [place] [phone] Notes/Report: White Blood Count 13.0 4.8-10.8 X10*3/uL [...] X10*3/uL NRBC Abs Auto 0.000 0.0-0.012 X10*3/uL CORRECTED REPORT CORRECTED REPORT [facility]. Panel Fa st Reviewed date:05/26/2024 08:58:25 AM Interpretation: Performing Lab:[facility], [address] [place] [phone] Notes/Report: Sodium 139 135-145 mmol/L Potassium 5.1 [...] Panel Reviewed date:05/26/2024 08:57:50 AM Interpretation: Performing Lab:[facility], [address] [place] [phone] Notes/Report: Triglycerides 114 <150 mg/dL Desirable Triglyceride: [...] REVIEW Reviewed date:05/26/2024 08:58:25 AM Interpretation: Performing Lab:[facility], [address] [place] [phone] Notes/Report: SLIDE REVIEW VERIFIED Gram stain Reviewed date:07/27/2024 08:13:39 PM Interpretation: Performing Lab:[address] [phone] Notes/Report: FOREHEAD Gram stain Gram stain results: Gram stain No polys Gram stain 2+ epithelial cells Gram stain No organisms seen Complete Blood Count Auto Di ff Reviewed date:08/21/2024 10:01:24 AM Interpretation: Performing Lab:[facility], [address] [place] [phone] Notes/Report: White Blood Count 11.4 4.8-10.8 X10*3/uL Red Blood Count 4.29 4.60-5.80 X10*6/uL Hemoglobin 13.2 14.0-18.0 g/dl Hematocrit 40.4 42.0-52.0 % Mean Corpuscular Volume 94.2 80.0-98.0 fL Mean Corpuscular Hemoglobin 30.8 27.0-33.0 pg Mean Corpuscular HGB Conc 32.7 31.0-36.0 g/dl Red Cell Distribution Width 12.4 11.0-16.0 % Platelet Count 131 160-400 X10*3/uL Mean Platelet Volume 11.8 9.4-12.4 fL Neutrophils Percent Auto 19.5 45-73 % Imm Gran Pct Auto 0.2 0.0-0.4 % Lymphocytes Percent Auto 73.1 20-40 % Monocytes Percent Auto 5.3 2-11 % Eosinophils Percent Auto 1.4 0-4 % Basophils Percent Auto 0.5 0-2 % NRBC Pct Auto 0.0 0.0-0.2 /100WBC Neutrophils Absolute Auto 2.2 2.0-8.3 x10*3/u L Imm Gran Abs Auto 0.02 0.00-0.03 X10*3/uL Lymphocytes Absolute Auto 8.3 1.2-4.9 X10*3/u L Monocytes Absolute Auto 0.6 0.1-1.2 X10*3/uL Eosinophils Absolute Auto 0.2 0.0-0.4 X10*3/u L Basophils Absolute Auto 0.1 0.0-0.2 X10*3/uL NRBC Abs Auto 0.000 0.0-0.012 X10*3/uL White Blood Count 11.4 4.8-10.8 X10*3/uL Red Blood Count 4.29 4.60-5.80 X10*6/uL Hemoglobin 13.2 14.0-18.0 g/dl Hematocrit 40.4 42.0-52.0 % Mean Corpuscular Volume 94.2 80.0-98.0 fL Mean Corpuscular Hemoglobin 30.8 27.0-33.0 pg Mean Corpuscular HGB Conc 32.7 31.0-36.0 g/dl Red Cell Distribution Width 12.4 11.0-16.0 % Platelet Count 131 160-400 X10*3/uL Mean Platelet Volume 11.8 9.4-12.4 fL Neutrophils Percent Auto 19.5 45-73 % Imm Gran Pct Auto 0.2 0.0-0.4 % Lymphocytes Percent Auto 73.1 20-40 % Monocytes Percent Auto 5.3 2-11 % Eosinophils Percent Auto 1.4 0-4 % Basophils Percent Auto 0.5 0-2 % NRBC Pct Auto 0.0 0.0-0.2 /100WBC Neutrophils Absolute Auto 2.2 2.0-8.3 x10*3/u L Imm Gran Abs Auto 0.02 0.00-0.03 X10*3/uL Lymphocytes Absolute Auto 8.3 1.2-4.9 X10*3/u L Monocytes Absolute Auto 0.6 0.1-1.2 X10*3/uL Eosinophils Absolute Auto 0.2 0.0-0.4 X10*3/u L Basophils Absolute Auto 0.1 0.0-0.2 X10*3/uL NRBC Abs Auto 0.000 0.0-0.012 X10*3/uL CORRECTED REPORT CORRECTED REPORT [facility]. Panel Fa st Reviewed date:08/21/2024 10:01:24 AM Interpretation: Performing Lab:[facility], [address] [place] [phone] Notes/Report: Sodium 140 135-145 mmol/L Potassium 4.5 3.3-5.1 mmol/L Chloride 108 96-108 mmol/L Carbon Dioxide 27 22-29 mmol/L Anion Gap 10 12-20 Blood Urea Nitrogen 21 9-16 mg/dL Creatinine 1.14 0.5-1.4 mg/dL Estimated Glomerular Filt Rate > 60 Chronic Kidney Disease: Estimated GFR < 60 mL/min/1.73m2 Severe Kidney Disease: Estimated GFR < 15 mL/min/1.73m2 Glucose Fasting 93 60-99 mg/dL Calcium 9.2 8.4-10.2 mg/dL Bilirubin Total 0.5 0.0-1.0 mg/dL Aspartate Amino Transferase 43 5-37 U/L Alanine Aminotransferase 44 0-40 U/L Total Protein 6.3 6.5-8.0 g/dL Albumin Level 3.9 3.5-5.0 g/dL Alkaline Phosphatase 48 39-117 U/L Lipid Panel Reviewed date:08/21/2024 10:01:24 AM Interpretation: Performing Lab:[facility], [address] [place] [phone] Notes/Report: Triglycerides 71 <150 mg/dL Desirable Triglyceride: less than 150 mg/dL Borderline High Triglyceride 150-199 mg/dL High Triglyceride: 200-499 mg/dL Very High Triglyceride: greater than or equal to 5OO mg/dL Cholesterol 125 <200 mg/dL Desirable Cholesterol: less than 200 mg/dL Borderline High Cholesterol: 200-239 mg/dL High Cholesterol: greater than 239 mg/dL LDL Cholesterol Calculated 56 <100 mg/dL Desirable LDL: less than 100 mg/dL Near Optimal/Above Optimal LDL: 110-129 mg/dL Borderline High LDL: 130-159 mg/dL High LDL: 160-189 mg/dL Very High LDL: greater than or equal to 190 mg/dL HDL Cholesterol 55 >40 mg/dL Desirable HDL: greater than 40 mg/dL Note: This HDL assay may give artificially low results in patients with liver disease. SLIDE REVIEW Reviewed date:08/21/2024 10:01:24 AM Interpretation: Performing Lab:[facility], [address] [place] [phone] Notes/Report: SLIDE REVIEW VERIFIED Reason For Referral No Information Medications Medication SIG (Take, Route, Frequency, Duration) Notes Start Date End Date Status Aspirin 81 MG 1 tablet Orally Once a day Active Metoprolol Succinate ER 25 MG 1 tablet Orally Once a day Active Rosuvastatin Calcium 10 MG 1 tablet Oral ly Once a day Active Lisinopril 10 MG TAKE 1 TABLET BY SEJAL TH EVERY DAY for 90 Active Immunizations Vaccine Route Administration Date Status [...] Problem Status W/U Status Risk Notes Problem 0006230 Former smoker (Z87.891) Active confirmed He is determine d to remain abstinent. He has a plan to deal with stress and illness. Problem 836427263 Mixed hyperlipidemia (E78.2) Active confirmed His lipids aree currently stable and require no treatment. Problem Atherosclerosis of coronary artery (861876995) Coronary atherosclerosis due to calcified coronary lesion (I25.84) Active confirmed He had inferolateral changes on a recent stress test consistent with ischemia. A cardiac catheterization is going to be done at the end of January 17, 2024. I counseled him at length about not exceeding certain activity levels between now and then. Problem 166196853 Actinic keratosis (L57.0) Active confirmed He will see the pricing coordinator periodically. Problem Benign prostatic hyperplasia (691135508) BPH (benign prostatic hyperplasia) (N40.0) Active confirmed He rises from sleep once or twice a night to urinate. According to fluid intake. We have discussed lifestyle modification as a way to reduce nocturia. Problem 52962032 Essential hypertension (I10) Active confirmed His blood pressure today is 137/68 and no changee in his regimen is necessary. Problem 396699098 Onychomycosis (B35.1) Active confirmed There is no systemic infection and no pain. It was elected to observe this condition at this time. Problem 51449957 Chronic lymphocytic leukemia (C91.10) Active confirmed His chronic lymphocytic leukemia is stable and does not require treatment at this time. His platelet count has been trending down now being 133,000. This may be an autoimmune process and will be observed carefully. It may eventually need treatment. He has 2200 lymphocytes. We discussed this at length. Problem 165586276 Acne rosacea (L71.9) Active confirmed The acne is josesito y mild and no additional treatment is necessary. Problem 23578668 Eczema, unspecified type (L30.9) Active confirmed I have refilled a prescription he gets a compound pharmacy given to him originally by a pricing coordinator. Problem 10121568 Retinal tear of right eye (H33.311) Active confirmed This has been corrected in his vision has been stable lately. Problem 166739999 Left upper lobe pulmonary nodule (R91.1) Active [...] in 2023. This has been scheduled. Problem 83031912 Hemangioma of liver (D18.03) Active confirmed This was a finding on imaging and will be observed. Vital Signs Heart Rate 43 /min 08/21/2024 Temperature 98.3 degrees Fahrenheit 08/21/2024 Blood pressure diastolic 68 mm Hg 08/21/2024 Height 70 in 08/21/2024 Blood pressure systolic 137 mm Hg 08/21/2024 Weight 153 lbs 08/21/2024 BMI 21.95 kg/m2 08/21/2024 Encounters Encounter Location Date Provider Diagnosis Hugo Smith III, MD [address] [place] [address] [place] [address] 12/17/2023 Hugo Smith Essential hypertensi on I10 ; Mixed hyperlipidemia E78.2 ; Acne rosacea L71.9 ; Former smoker Z87.891 ; Eczema, unspecified type L30.9 ; Coronary atherosclerosis due to calcified coronary lesion I25.84 ; BPH (benign prostatic hyperplasia) N40.0 and Left upper lobe pulmonary nodule R91.1 Hugo Smith III, MD [address] [place] [address] [place] [address] 01/24/2024 Hugo Smith Essential hypertensi on I10 ; Coronary atherosclerosis due to calcified coronary lesion I25.84 ; Mixed hyperlipidemia E78.2 ; Retinal tear of right eye H33.311 ; BPH (benign prostatic hyperplasia) N40.0 ; Chronic lymphocytic leukemia C91.10 ; Eczema, unspecified type L30.9 ; Left upper lobe pulmonary nodule R91.1 ; Hemangioma of liver D18.03 and Former smoker Z87.891 Hugo Smith III, MD [address] [place] [address] [place] [address] 03/27/2024 Hugo Smith Essential hypertensi on I10 ; Chronic lymphocytic leukemia C91.10 ; Mixed hyperlipidemia E78.2 ; Former smoker Z87.891 and Coronary atherosclerosis due to calcified coronary lesion I25.84 Hugo Smith III, MD [address] [place] [address] [place] [address] 05/18/2024 Hugo Smith Essential hypertensi on I10 ; Chronic lymphocytic leukemia C91.10 ; Actinic keratosis L57.0 ; Retinal tear of right eye H33.311 ; Mixed hyperlipidemia E78.2 ; Eczema, unspecified type L30.9 ; Onychomycosis B35.1 and BPH (benign prostatic hyperplasia) N40.0 Hugo Smith III, MD [address] [place] [address] [place] [address] 05/29/2024 Hugo Smith Essential hypertensi on I10 ; Chronic lymphocytic leukemia C91.10 ; Mixed hyperlipidemia E78.2 ; Actinic keratosis L57.0 ; Acne rosacea L71.9 ; Former smoker Z87.891 and Eczema, unspecified type L30.9 Hugo Smith III, MD [address] [place] [address] [place] [address] 07/25/2024 Hugo Smith Essential hypertensi on I10 ; Skin infection L08.9 ; Chronic lymphocytic leukemia C91.10 and Former smoker Z87.891 Hugo Smith III, MD [address] [place] [address] [place] [address] 07/28/2024 Hugo Smith Essential hypertensi on I10 ; Skin infection L08.9 ; Former smoker Z87.891 ; Chronic lymphocytic leukemia C91.10 and Coronary atherosclerosis due to calcified coronary lesion I25.84 Hugo Smith III, MD [address] [place] [address] [place] [address] 08/21/2024 Hugo Smith Essential hypertensi on I10 ; Chronic lymphocytic leukemia C91.10 ; Mixed hyperlipidemia E78.2 ; Hemangioma of liver D18.03 ; Left upper lobe pulmonary nodule R91.1 ; Former smoker Z87.891 and Coronary atherosclerosis due to calcified coronary lesion I25.84 Hugo Smith III, MD [address] [place] [address] [place] [address] 01/10/2024 Hugo Smith III, MD [address] [place] [address] [place] [address] 08/22/2024 Hugo Smith III, MD [address] [place] [address] [place] [address] 08/27/2024 Hugo Smith III, MD [address] [place] [address] [place] [address] 08/27/2024 Hugo Smith Assessments Encounter Date Diagnosis (ICD Code) Assessment Notes T reatment Notes Treatment Clinical Notes 12/17/2023 Mixed hyperlipidemia (ICD-10 - E78.2) His [...] [place] [address] with 66% lymphocytes. No therapy is necessary. [...] [place] [address] with 66% lymphocytes. No therapy is necessary. [...] not require treatment at this time. 07/25/2024 Essential hypertension (ICD-10 - I10) His [...] see if dermatology will see him sooner. 07/28/2024 Essential hypertension (ICD-10 - I10) His blood pressure today is 130/74 and no changee in his regimen is necessary. 07/28/2024 Skin infection (ICD-10 - L08.9) The infection has resolved. He has finished the antibiotic. The skin culture grew only normal skin gurdeep. 08/21/2024 Essential hypertension (ICD-10 - I10) His [...] 2200 lymphocytes. We discussed this at length. 12/17/2023 Acne rosacea (ICD-10 - L71.9) The [...] (ICD-10 - L57.0) He will see the pricing coordinator periodically. 05/29/2024 Mixed hyperlipidemia (ICD-10 - E78.2) The current fasting lipid profile shows good control of his lipids. No change in his regimen was made. 07/25/2024 Chronic lymphocytic leukemia (ICD-10 - C91.10) His white blood cell count is 13,000. His diseases stable and does not require treatment at this time. 07/28/2024 Former smoker (ICD-1 0 - Z87.891) He is determined to remain abstinent. He has a plan to deal with stress and illness. 08/21/2024 Mixed hyperlipidemia (ICD-10 - E78.2) His lipids aree currently stable and require no treatment. 12/17/2023 Former smoker (ICD-1 0 - Z87.891) [...] (ICD-10 - L57.0) He will see the pricing coordinator periodically. 07/25/2024 Former smoker (ICD-1 0 - Z87.891) He is determined to remain abstinent. He has a plan to deal with stress and illness. 07/28/2024 Chronic lymphocytic leukemia (ICD-10 - C91.10) His white blood cell count is 13,000. His diseases stable and does not require treatment at this time. 08/21/2024 Hemangioma of liver (ICD-10 - D18.03) This was a finding on imaging and will be observed. 12/17/2023 Eczema, unspecified type (ICD-10 - L30.9) I have refilled a prescription he gets a compound pharmacy given to him originally by a pricing coordinator. 01/24/2024 BPH (benign prostati c hyperplasia) (ICD-10 [...] mild and no additional treatment is necessary. 07/28/2024 Coronary atherosclerosis due to calcified coronary lesion (ICD-10 - I25.84) He had inferolateral changes on a recent stress test consistent with ischemia. A cardiac catheterization is going to be done at the end of January 17, 2024. I counseled him at length about not exceeding certain activity levels between now and then. 08/21/2024 Left upper lobe pulmonary nodule (ICD-10 [...] done in 2023. This has been scheduled. 12/17/2023 Coronary atherosclerosis due to calcified coronary [...] His platelet count and hematocrit are stable. [facility] white blood cell count is normal at 9200 with 66% lymphocytes. No therapy is necessary. There was no adenopathy. No splenomegaly or constitutional B symptoms present today. 05/18/2024 Eczema, unspecified type (ICD-10 - L30.9) I have refilled a prescription he gets a compound pharmacy given to him originally by a pricing coordinator. 05/29/2024 Former smoker (ICD-1 0 - Z87.891) He is determined to remain abstinent. He has a plan to deal with stress and illness. 08/21/2024 Former smoker (ICD-1 0 - Z87.891) [...] pharmacy given to him originally by a pricing coordinator. 05/18/2024 Onychomycosis (ICD-1 0 - B35.1) There is no systemic infection and no pain. It was elected to observe this condition at this time. 05/29/2024 Eczema, unspecified type (ICD-10 - L30.9) I have refilled a prescription he gets a compound pharmacy given to him originally by a pricing coordinator. 08/21/2024 Coronary atherosclerosis due to calcified coronary lesion (ICD-10 - I25.84) He had inferolateral changes on a recent stress test consistent with ischemia. A cardiac catheterization is going to be done at the end of January 17, 2024. I counseled him at length about not exceeding certain activity levels between now and then. 12/17/2023 Left upper lobe pulmonary nodule (ICD-10 [...] SMEAR 9 PROFILE, FASTING (COMPREHENSIVE METABOLI C) 08/21/2024 PROFILE, FASTING (COMPREHENSIVE METABOLI C) 08/17/2019 PROFILE, FASTING (COMPREHENSIVE METABOLI C) 04/17/2019 PROFILE, FASTING (COMPREHENSIVE METABOLI C) 09/05/2020 PROFILE, FASTING (COMPREHENSIVE METABOLI C) 07/28/2021 PROFILE, FASTING (COMPREHENSIVE METABOLI C) 01/24/2024 PROFILE, FASTING (COMPREHENSIVE METABOLI C) 05/29/2024 PROFILE, FASTING (COMPREHENSIVE METABOLI C) 12/15/2022 PROFILE, FASTING (COMPREHENSIVE METABOLI C) 01/12/2019 PROFILE, FASTING (COMPREHENSIVE METABOLI C) 04/22/2021 PROFILE, FASTING (COMPREHENSIVE METABOLI C) 10/26/2019 PROFILE, FASTING (COMPREHENSIVE METABOLI C) 08/11/2022 PROFILE, FASTING (COMPREHENSIVE METABOLI C) 03/23/2022 PROFILE, FASTING (COMPREHENSIVE METABOLI C) 03/27/2024 PROFILE, FASTING (COMPREHENSIVE METABOLI C) 12/25/2020 PROFILE, RANDOM (COMPREHENSIVE METABOLIC ) 11/17/2021 PROFILE, RANDOM (COMPREHENSIVE METABOLIC ) 01/31/2020 PROFILE, RANDOM (COMPREHENSIVE METABOLIC ) 05/02/2020 PROFILE, RANDOM (COMPREHENSIVE METABOLIC ) 10/06/2018 LIPID PANEL 08/11/2022 LIPID PANEL 11/17/2021 LIPID PANEL 08/17/2019 LIPID PANEL 04/17/2019 LIPID PANEL 09/05/2020 LIPID PANEL 07/28/2021 LIPID PANEL 12/15/2022 LIPID PANEL 01/12/2019 LIPID PANEL 05/02/2020 LIPID PANEL 04/22/2021 LIPID PANEL 10/26/2019 GGT 03/23/2022 GGT 07/28/2021 LDH 03/23/2022 TSH (THYROID STIMULATING HORMONE) 2018 PSA, TOTAL 08/11/2022 PSA, TOTAL 11/17/2021 CBC w DIFF 12/15/2022 CBC w DIFF 01/12/2019 CBC w DIFF 05/02/2020 CBC w DIFF 04/22/2021 CBC w DIFF 10/26/2019 CBC w DIFF 12/25/2020 CBC w DIFF 08/21/2024 CBC w DIFF 08/11/2022 CBC w DIFF 03/23/2022 CBC w DIFF 08/17/2019 CBC w DIFF 11/17/2021 CBC w DIFF 09/05/2020 CBC w DIFF 05/29/2024 CBC w DIFF [...] WITH AUTO DIFF 01/24/2024 Platelet Count 09/05/2020 RETIC 08/21/2024 Lipid Panel 03/27/2024 Lipid Panel 12/25/2020 Lipid Panel 08/21/2024 Lipid Panel 03/23/2022 Lipid Panel 01/24/2024 Lipid Panel 05/29/2024 Beta-2 Microglobulin, Serum 08/21/2024 CT chest w con 04/16/2023 NUC Stress Test 01/22/2021 Next Appt Details Provider Name:Hugo Smith, 11/21/2024 09:15:00 AM, [address] [place] [address] EMELI KE[address]ER, [place], [address], Provider Name:Hugo Freemanrne, 08/22/2025 09:30:00 AM, [address] [facility] EMELI KELLER, [place], [address], Insurance Providers Payer Name Payer Address Payer Phone Subscriber Number Group Number Insured Name Patient Relationship to Insured Coverage Start Date Coverage End Date MEDICARE NGS [address] [place] [phone] [id number] Henrique Amaro Self - patient is the insured [employer] [address] [place], [place] [id number] Henrique Amaro Self - patient is [...] disease January 2024 Surgical History Surgery Date(Month/Year) Cyst surgically removed from the middle of the back 06/27/2023 Cardiac catheterization [facility] 60% occlusion circumflex branch January 2024 left great big toe bone spur/ arthritis 08/2020 right shoulder rotor cuff surergy 0 colonoscopy, Dr. Briggs, [facility], one inflammatory polyp 2013 colonoscopy, negative findings 2002 rotator cuff surgery, left 12/2016 Hospitalization History Reason Date(Month/Year) No history fractured rib due to fall 12/2019
[2024-11-15 13:36] LABS: Hematocrit 41.4 % (42.0-52.0); Hemoglobin 13.6 g/dl (14.0-18.0); Imm Gran Abs Auto 0.02 X10*3/uL (0.00-0.03); Imm Gran Pct Auto 0.2 % (0.0-0.4); MANUAL DIFF FLAG SCAN; Mean Corpuscular HGB Conc 32.9 g/dl (31.0-36.0); Mean Corpuscular Hemoglobin 31.2 pg (27.0-33.0); Mean Corpuscular Volume 95.0 fL (80.0-98.0); NRBC Abs Auto 0.020 X10*3/uL (0.0-0.012); NRBC Pct Auto 0.2 /100WBC (0.0-0.2); Platelet Count 112 X10*3/uL (160-400); Red Blood Count 4.36 X10*6/uL (4.60-5.80); Reticulocytes Absolute 0.055 X10*6/uL (0.026-0.095); SCAN SMEAR FLAG 1; White Blood Count 13.2 X10*3/uL (4.8-10.8)
[2024-11-15 13:37] LABS: Lymphocytes Absolute Auto 9.3 X10*3/uL (1.2-4.9)
[2024-11-15 14:21] LABS: Alanine Aminotransferase 64 U/L (0-40); Albumin Level 4.3 g/dL (3.5-5.0); Alkaline Phosphatase 48 U/L (39-117); Anion Gap 10 (12-20); Aspartate Amino Transferase 51 U/L (5-37); Blood Urea Nitrogen 18 mg/dL (9-16); Calcium 9.5 mg/dL (8.4-10.2); Carbon Dioxide 29 mmol/L (22-29); Chloride 109 mmol/L (96-108); Cholesterol 141 mg/dL (<200); Estimated Glomerular Filt Rate > 60; HDL Cholesterol 57 mg/dL (>40); Potassium 4.9 mmol/L (3.3-5.1); Sodium 143 mmol/L (135-145); Total Protein 6.9 g/dL (6.5-8.0); Triglycerides 125 mg/dL (<150)
== END 2024-11-15 10:27 | disposition home or self-care (01) ==
LOC: HO.10HDL 10:26
PROVIDERS: Visit Provider Internal Medicine Medical Oncology
DX: I10 Essential (primary) hypertension (principal); E78.2 Mixed hyperlipidemia; D18.03 Hemangioma of intra-abdominal structures; C91.10 Chronic lymphocytic leukemia of B-cell type not having achieved remission
CPT/HCPCS: 36415; 80053; 80061; 82232; 85025; 85045

== ENCOUNTER 2025-02-14 09:24 | Outpatient (REF) | payer MEDICARE, SELFPAY ==
--- OUTSIDE RECORDS SUMMARY | 2024-02-14 07:30 | XMS_ITS ---
Author Organization [facility] Address [address] [place] [phone] Care Team Providers Care Vapor Coater Name Role Phone Hugo Smith MD Primary Care Provider Unavailab Hugo Beyer Unavailable [phone] REASON FOR VISIT screening Encounters Encounter Location Date Provider Diagnosis [facility] [place] Outpatient [address] [place] [id number] 02/14/2024 Hugo Briggs Plan Of Treatment Next Appt Details Provider Name:Hugo Briggs , 03/26/2025 10:40:00 AM, [address] [place] [address], [phone], Progress Notes * KAY PACHECODOB: 0 (74 yo M)Acc No.[id number]:02/14/2024 COLON WITH MAC Patient: KAY SOTELO Provider: Chris Briggs MD :1950 A ge:73 Y S ex:Male Date:02/14/2024 Address:[address] [place], [place] [id number] Pcp:Hugo Smith MD Subjective: * Chief Complaints: * 1 . Screening. * Medical History: Objective: * Vitals: Assessment: Plan: * Treatment: * * The named appointment provid er may or may not be the originator of this progress note, and it is not deemed complete until electronically signed by the appointment provider. Sign off status: Pending * Provider: Chris Briggs MD Date: 1 Generated for Susana Leog/Niiitting on: 1 10:58 AM EDT
--- OUTSIDE RECORDS SUMMARY | 2024-05-29 06:30 | XMS_ITS ---
Author Organization Hugo Smith III, MD Address [address] [place] [address] Care Team Providers Care Information Director Name Role Phone Dr. Hugo Smith III Primary Care Provider Allergies Allergen (clinical drug ingredient) Drug/Non Drug Allergy documented on EMR Reaction Allergy Type Onset Date Status No Known Drug Allergy Unknown Drug Allergy Active REASON FOR VISIT CLL, Hypertension, Hyperlipidemia, Eczema, Coronary artery disease, Benign prostatic hypertrophy Medications Medication SIG (Take, Route, Frequency, Duration) Notes Start Date End Date Status Rosuvastatin Calcium 10 MG 1 tablet Oral ly Once a day Active Lisinopril 10 MG TAKE 1 TABLET BY SEJAL TH EVERY DAY Active Metoprolol Succinate ER 25 MG 1 tablet O rally Once a day Active hydroCHLOROthiazide 25 MG 1 tablet in th e morning Orally Once a day Active Aspirin 81 MG 1 tablet Orally Once a day Active Social History Tobacco Use: Social History Observation Description Date Details (start date - stop date) Former Smoker NA - NA Sex Assigned At : Social History Observation Description Sex Assigned At Male Tobacco Use/Smoking Question Answer Notes Patient is a former smoker How long has it been since you last smoked? > 10 years Additional Findings: Tobacco Non-User Ex-cigaret te smoker Vital Signs Temperature 97.2 degrees Fahrenheit 05/29/19 25 Blood pressure systolic 120 mm Hg 05/29/19 25 Blood pressure diastolic 60 mm Hg 025 Heart Rate 54 /min 05/29/2024 Height 70 in 05/29/2024 Weight 158 lbs 05/29/2024 BMI 22.67 kg/m2 05/29/2024 Encounters Encounter Location Date Provider Diagnosis Hugo Smith III, MD [address] [place] [address] [place] [address] 05/29/2024 Hugo Smith Essential hypertensi on I10 ; Chronic lymphocytic leukemia C91.10 ; Mixed hyperlipidemia E78.2 ; Actinic keratosis L57.0 ; Acne rosacea L71.9 ; Former smoker Z87.891 and Eczema, unspecified type L30.9 Assessments Encounter Date Diagnosis (ICD Code) Assessment Notes Treat ment Notes Treatment Clinical Notes 05/29/2024 Essential hypertension (ICD-10 - I10) His systolic blood pressure is stable. His body mass index was 22. We reviewed the elements of aggressive sodium restriction. He is exercising strenuously. His blood pressure will be checked frequently. Our goal is to maintain this level 05/29/2024 Chronic lymphocytic leukemia (ICD-10 - C91.10) His white blood cell count is 13,000. His diseases stable and does not require treatment at this time. 05/29/2024 Mixed hyperlipidemia (ICD-10 - E78.2) The current fasting lipid profile shows good control of his lipids. No change in his regimen was made. 05/29/2024 Actinic keratosis (ICD-10 - L57.0) He will see the jet aircraft servicer periodically. 05/29/2024 Acne rosacea (ICD-10 - L71.9) The acne is very mild and no additional treatment is necessary. 05/29/2024 Former smoker (ICD-1 0 - Z87.891) He is determined to remain abstinent. He has a plan to deal with stress and illness. 05/29/2024 Eczema, unspecified type (ICD-10 - L30.9) I have refilled a prescription he gets a compound pharmacy given to him originally by a jet aircraft servicer. Plan Of Treatment Medication Medication Name Sig Start Date Stop Date Notes Rosuvastatin Calcium 10 MG 1 tablet Orally Once a day Lisinopril 10 MG TAKE 1 TABLET BY SEJAL TH EVERY DAY Metoprolol Succinate ER 25 MG 1 tablet Orally Once a day hydroCHLOROthiazide 25 MG 1 tablet in th e morning Orally Once a day Aspirin 81 MG 1 tablet Orally Once a day Next Appt Details Follow Up: 3 Months, 3 month s, Reason: ov review labs, Routine follow-up Provider Name:Hugo Smith , 04/03/2025 10:30:00 AM, [address] [place] [address] [address], [place], [phone], Provider Name:Hugo Smith , 08/22/2025 09:30:00 AM, [address] [place] [address] [address], [place], [phone], Progress Notes * Henrique AMARODOB: 0 (73 yo M)Acc No.[id number]:05/29/2024 Progress Notes Patient: Henrique SOTELO Provider: Chris Smith MD :1950 A ge:73 Y S ex:Male Date:05/29/2024 Address:[address] [place] [address], [place], [id number] Subjective: * Chief Complaints: * C LLHypertensionHyperlipidemiaEczemaCoronary artery diseaseBenign prostatic hypertrophy * HPI: C OVID-19 Screening: dc dthe hctz 04/17, bp at home 1121-125/[id number], sees card 10/11, rash left leg and sright forearm better. Questions H ave you had any new onset fever, chills, cough, congestion, sore throat, shortness of breath, muscle aches? N o * : The patient, a 73-year-old male, reported that Hydrochlorothiazide had no impact on his blood pressure. He has been off the medication since May 19. The patient's blood pressure readings were 112/60 and 124/60, which the doctor found satisfactory. The patient also reported no chest pains or dizziness. He had a catheterization procedure where one artery was found to be blocked. The patient experiences shortness of breath when exerting himself, which he and the doctor discussed could be due to a variety of factors including lung disease, being out of shape, or possibly due to his heart condition. The patient also reported a discoloration in his toe, which he initially thought was related to COVID-19, but the doctor dismissed this. The patient also reported a rash on his arm, which has been improving. * ROS: G eneral/Constitutional: pain o nly normal aches and pains. C hills d enies.?Fatigue a dmits. F ever d enies. A llergy/Immunology: Admits R chico. E NT: Decreased hearing d enies. E ndocrine: Denies D izziness. R espiratory: Cough d enies. C ardiovascular: Chest pain with exertion d enies. D yspnea on exertion?denies. S hortness of breath d enies. G astrointestinal: Constipation o ccasional. D ecreased appetite d enies. D iarrhea d enies. H eartburn d enies. N ausea d enies. R ectal bleeding d enies. V omiting d enies. H ematology: bruising d enies. p etechiae d enies. S wollen glands n one have been noted. G enitourinary: Frequent urination a t night. M usculoskeletal: Muscle aches d enies. P ainful joints d enies. S ciatica d enies. W eakness d enies. S kin: Itching d enies. R chico d enies. S kin lesion(s)?denies. N eurologic: Difficulty speaking d enies. D izziness d enies.?Headache d enies. L ow back pain d enies. P sychiatric: Depressed mood d enies. * Medical History: * Surgical History: r otator cuff surgery, left 12/2016colonoscopy, negative findings 2003colonoscopy, Dr. Briggs, [facility], one inflammatory polyp 2013right shoulder rotor cuff surergy 08/2019left great big toe bone spur/ arthritis ardiac catheterization [facility] 60% occlusion circumflex branch January 2024No history * Hospitalization/Major Diagno stic Procedure: f ractured rib due to fall 12/2019No history * Family History: F ather: 82 yrs, diagnosed with Cancer, HTN. M other: 78 yrs, diagnosed with CVD. S iblings: , diagnosed with Cancer in 1. 2 brother(s) , 2 sister(s) - healthy. . His father suffered from alcoholism pancreatic cancer hypertension arthritis as well as lung cancer. His mother from heart disease. A brother at age 55 from a myocardial infarction. An older brother has congestive heart failure. A brother recently of myeloma. A sister has stage III non-small cell lung cancer. He is not aware of any other family history of substance use disorder or mental illness. * Social History: T obacco Use: T obacco Use/Smoking P atient is a f ormer smoker H ow long has it been since you last smoked??> 10 years A dditional Findings: Tobacco Non-User E x-cigarette smoker Diane gtz was born in [place], [place]. He has been to [place] for 35 years. They have a step child, Harsha. He has no grandchildren. He is retired from [employer], and has no exposures to toxic materials. He is not a Confucianism. * Medications: T akingRosuvastatin Calcium 10 MG Tablet 1 tablet Orally Once a day Metoprolol Succinate ER 25 MG Tablet Extended Release 24 Hour 1 tablet Orally Once a day Lisinopril 10 MG Tablet TAKE 1 TABLET BY MOUTH EVERY DAY Aspirin 81 MG Tablet Chewable 1 tablet Orally Once a day Taking Rosuvastatin Calcium 10 MG Tablet 1 tablet Orally Once a day Taking Metoprolol Succinate ER 25 MG Tablet Extended Release 24 Hour 1 tablet Orally Once a day Taking Lisinopril 10 MG Tablet TAKE 1 TABLET BY MOUTH EVERY DAY Taking Aspirin 81 MG Tablet Chewable 1 tablet Orally Once a day Not-Taking/PRNhydroCHLOROthiazide 25 MG Tablet 1 tablet in the morning Orally Once a day Medication List reviewed and reconciled with the patientNot-Taking/PRN hydroCHLOROthiazide 25 MG Tablet 1 tablet in the morning Orally Once a day Medication List reviewed and reconciled with the patient * Allergies: N o Known Drug Allergyno[Allergies Verified] Objective: * Vitals: H t: 70, Wt:158, BMI:22.67, BP:120/60, HR:54, Temp:97.2, Ht-cm: 177.8, Wt-k.67. * P ast Orders: Lab:Lipid Panel * Collection Date 05/24/2024 03/13/2024 12/08/2023 Collection Time 10:10 AM 09:52 AM 08:50 AM Order Date 05/24/2024 03/13/202412/08/2023 Triglycerides 114 (Ref Range: <150 mg/dL) 75 (Ref Range: <150 mg/dL) 97 (Ref Range: <150 mg/dL) Cholesterol 151 (Ref Range: <200 mg/dL) 140 (Ref Range: <200 mg/dL) 133 (Ref Range: <200 mg/dL) LDL Cholesterol Calculated 76 (Ref Range: <100 mg/dL) 64 (Ref Range: <100 mg/dL) 59 (Ref Range: <100 mg/dL) HDL Cholesterol 53 (Ref Range: >40 mg/dL) 61 (Ref Range: >40 mg/dL) 55 (Ref Range: >40 mg/dL) * Lab:SLIDE REVIEW * Collection Date 05/24/2024 03/13/2024 12/08/2023 Collection Time 10:10 AM 09:52 AM 08:50 AM Order Date 05/24/2024 03/13/2024 12/08/2023 SLIDE REVIEW VERIFIED VERIFIED VERIFIED * Lab:Complete Blood Count Aut o Diff * Collection Date 05/24/2024 03/13/2024 12/08/2023 Collection Time 10:10 AM 09:52 AM 08:50 AM Order Date 05/24/2024 03/13/2024 12/08/2023 White Blood Count 13.0 H (Ref Range: 4.8-10.8 X10*3/uL) 12.9 H (Ref Range: 4.8-10.8 X10*3/uL) 11.1 H (Ref Range: 4.8-10.8 X10*3/uL) Red Blood Count 4.37 L (Ref Range: 4.60-5.80 X10*6/uL) 4.60 (Ref Range: 4.60-5.80 X10*6/uL) 4.44 L (Ref Range: 4.60-5.80 X10*6/uL) Hemoglobin 13.6 L (Ref Range: 14.0-18.0 g/dl) 14.3 (Ref Range: 14.0-18.0 g/dl) 14.1 (Ref Range: 14.0-18.0 g/dl) Hematocrit 40.8 L (Ref Range: 42.0-52.0 %) 43.3 (Ref Range: 42.0-52.0 %) 41.3 L (Ref Range: 42.0-52.0 %) Mean Corpuscular Volume 93.4 (Ref Range: 80.0-98.0 fL) 94.1 (Ref Range: 80.0-98.0 fL) 93.0 (Ref Range: 80.0-98.0 fL) Mean Corpuscular Hemoglobin 31.1 (Ref Range: 27.0-33.0 pg) 31.1 (Ref Range: 27.0-33.0 pg) 31.8 (Ref Range: 27.0-33.0 pg) Mean Corpuscular HGB Conc 33.3 (Ref Range: 31.0-36.0 g/dl) 33.0 (Ref Range: 31.0-36.0 g/dl) 34.1 (Ref Range: 31.0-36.0 g/dl) Red Cell Distribution Width 12.4 (Ref Range: 11.0-16.0 %) 12.2 (Ref Range: 11.0-16.0 %) 11.9 (Ref Range: 11.0-16.0 %) Platelet Count 137 L (Ref Range: 160-400 X10*3/uL) 154 L (Ref Range: 160-400 X10*3/uL) 153 L (Ref Range: 160-400 X10*3/uL) Mean Platelet Volume 10.9 (Ref Range: 9.4-12.4 fL) 10.7 (Ref Range: 9.4-12.4 fL) 10.9 (Ref Range: 9.4-12.4 fL) Neutrophils Percent Auto 24.4 L (Ref Range: 45-73 %) 26.0 L (Ref Range: 45-73 %) 26.0 L (Ref Range: 45-73 %) Imm Gran Pct Auto 0.2 (Ref Range: 0.0-0.4 %) 0.1 (Ref Range: 0.0-0.4 %) 0.1 (Ref Range: 0.0-0.4 %) Lymphocytes Percent Auto 68.5 H (Ref Range: 20-40 %) 64.7 H (Ref Range: 20-40 %) 65.9 H (Ref Range: 20-40 %) Monocytes Percent Auto 4.9 (Ref Range: 2-11 %) 7.9 (Ref Range: 2-11 %) 6.2 (Ref Range: 2-11 %) Eosinophils Percent Auto 1.5 (Ref Range: 0-4 %) 0.8 (Ref Range: 0-4 %) 1.2 (Ref Range: 0-4 %) Basophils Percent Auto 0.5 (Ref Range: 0-2 %) 0.5 (Ref Range: 0-2 %) 0.6 (Ref Range: 0-2 %) NRBC Pct Auto 0.0 (Ref Range: 0.0-0.2 /100WBC) 0.0 (Ref Range: 0.0-0.2 /100WBC) 0.0 (Ref Range: 0.0-0.2 /100WBC) Neutrophils Absolute Auto 3.2 (Ref Range: 2.0-8.3 x10*3/uL) 3.4 (Ref Range: 2.0-8.3 x10*3/uL) 2.9 (Ref Range: 2.0-8.3 x10*3/uL) Imm Gran Abs Auto 0.02 (Ref Range: 0.00-0.03 X10*3/uL) 0.01 (Ref Range: 0.00-0.03 X10*3/uL) 0.01 (Ref Range: 0.00-0.03 X10*3/uL) Lymphocytes Absolute Auto 8.9 H (Ref Range: 1.2-4.9 X10*3/uL) 8.4 H (Ref Range: 1.2-4.9 X10*3/uL) 7.3 H (Ref Range: 1.2-4.9 X10*3/uL) Monocytes Absolute Auto 0.6 (Ref Range: 0.1-1.2 X10*3/uL) 1.0 (Ref Range: 0.1-1.2 X10*3/uL) 0.7 (Ref Range: 0.1-1.2 X10*3/uL) Eosinophils Absolute Auto 0.2 (Ref Range: 0.0-0.4 X10*3/uL) 0.1 (Ref Range: 0.0-0.4 X10*3/uL) 0.1 (Ref Range: 0.0-0.4 X10*3/uL) Basophils Absolute Auto 0.1 (Ref Range: 0.0-0.2 X10*3/uL) 0.1 (Ref Range: 0.0-0.2 X10*3/uL) 0.1 (Ref Range: 0.0-0.2 X10*3/uL) NRBC Abs Auto 0.000 (Ref Range: 0.0-0.012 X10*3/uL) 0.000 (Ref Range: 0.0-0.012 X10*3/uL) 0.000 (Ref Range: 0.0-0.012 X10*3/uL) * Lab:Comprehensive [place]. [place] l Fast * Collection Date 05/24/2024 03/13/2024 12/08/2023 Collection Time 10:10 AM 09:52 AM 08:50 AM Order Date 05/24/2024 03/13/2024 12/08/2023 Sodium 139 (Ref Range: 135-145 mmol/L) 138 (Ref Range: 135-145 mmol/L) 136 (Ref Range: 135-145 mmol/L) Bilirubin Total 0.6 (Ref Range: 0.0-1.0 mg/dL) 0.4 (Ref Range: 0.0-1.0 mg/dL) 0.7 (Ref Range: 0.0-1.0 mg/dL) Aspartate Amino Transferase 42 H (Ref Range: 5-37 U/L) 53 H (Ref Range: 5-37 U/L) 35 (Ref Range: 5-37 U/L) Alanine Aminotransferase 47 H (Ref Range: 0-40 U/L) 66 H (Ref Range: 0-40 U/L) 31 (Ref Range: 0-40 U/L) Total Protein 7.4 (Ref Range: 6.5-8.0 g/dL) 6.9 (Ref Range: 6.5-8.0 g/dL) 6.9 (Ref Range: 6.5-8.0 g/dL) Albumin Level 4.4 (Ref Range: 3.5-5.0 g/dL) 4.4 (Ref Range: 3.5-5.0 g/dL) 4.3 (Ref Range: 3.5-5.0 g/dL) Alkaline Phosphatase 47 (Ref Range: 39-117 U/L) 47 (Ref Range: 39-117 U/L) 39 (Ref Range: 39-117 U/L) Potassium 5.1 (Ref Range: 3.3-5.1 mmol/L) 4.2 (Ref Range: 3.3-5.1 mmol/L) 4.1 (Ref Range: 3.3-5.1 mmol/L) Chloride 108 (Ref Range: 96-108 mmol/L) 103 (Ref Range: 96-108 mmol/L) 101 (Ref Range: 96-108 mmol/L) Carbon Dioxide 27 (Ref Range: 22-29 mmol/L) 30 H (Ref Range: 22-29 mmol/L) 29 (Ref Range: 22-29 mmol/L) Anion Gap 9 L (Ref Range: 12-20) 9 L (Ref Range: 12-20) 10 L (Ref Range: 12-20) Blood Urea Nitrogen 16 (Ref Range: 9-16 mg/dL) 19 H (Ref Range: 9-16 mg/dL) 19 H (Ref Range: 9-16 mg/dL) Creatinine 1.13 (Ref Range: 0.5-1.4 mg/dL) 1.21 (Ref Range: 0.5-1.4 mg/dL) 1.13 (Ref Range: 0.5-1.4 mg/dL) Estimated Glomerular Filt Rate > 60 59 > 60 Glucose Fasting 96 (Ref Range: 60-99 mg/dL) 97 (Ref Range: 60-99 mg/dL) 90 (Ref Range: 60-99 mg/dL) Calcium 9.1 (Ref Range: 8.4-10.2 mg/dL) 9.7 (Ref Range: 8.4-10.2 mg/dL) 9.9 (Ref Range: 8.4-10.2 mg/dL) * Lab:Pathologist Review - CBC * Collection Date 03/13/2024 12/11/2022 Collection Time 09:52 AM 12:10 PM Order Date 03/13/2024 12/11/2022 Pathologist Review - CBC SEE NOTE SEE NOTE * Examination: G eneral Examination: GENERAL APPEARANCE: p leasant, well nourished, well developed, in no acute distress, calm and relaxed, man. HEAD: a traumatic, normocephalic. EYES: e nam, perrla, anicteric, conjugate. EARS: n ormal. NOSE: s eptum intact. ORAL CAVITY: n ormal, unremarkable. NECK/THYROID: n o jugular venous distention, no carotid bruit, thyroid normal. LYMPH NODES: n o enlarged lymph nodes,spleen normal. SKIN: n o suspicious lesions, anicteric, Moderate onychomycosis. HEART: n o clicks, gallops, murmurs, or rubs, regular rhythm, S1, S2 normal, no s3, or vascular bruits. LUNGS: c lear to auscultation . BREASTS: no masses palpable bilaterally. ABDOMEN: b owel sounds normal, no ascites, no organomegaly, no mass. RECTAL EXAM: n ot examined. MUSCULOSKELETAL: e xtremities unremarkable, no clubbing, cyanosis or edema. PERIPHERAL PULSES: n ormal. NEUROLOGIC: a lert and oriented, cranial nerves 2-12 grossly intact, deep tendon reflexes 2+ symmetrical, motor strength normal upper and lower extremities, sensory exam intact. PSYCH: a lert, oriented. Assessment: * Assessment: 1. C hronic lymphocytic leukemia - C91.10 (Primary) N otes :His white blood cell count is 13,000. His diseases stable and does not require treatment at this time. 2 . E ssential hypertension - I10 N otes :His systolic blood pressure is stable. His body mass index was 22. We reviewed the elements of aggressive sodium restriction. He is exercising strenuously. His blood pressure will be checked frequently. Our goal is to maintain this level 3 . M ixed hyperlipidemia - E78.2 N otes :The current fasting lipid profile shows good control of his lipids. No change in his regimen was made. 4 . A ctinic keratosis - L57.0 N otes :He will see the jet aircraft servicer periodically. 5 . A cne rosacea - L71.9 N otes :The acne is very mild and no additional treatment is necessary. 6 . F ormer smoker - Z87.891 N otes :He is determined to remain abstinent. He has a plan to deal with stress and illness. 7 . E czema, unspecified type - L30.9 N otes :I have refilled a prescription he gets a compound pharmacy given to him originally by a jet aircraft servicer. Plan: * Treatment: 2. E ssential hypertension Continue Rosuvastatin Calcium Tablet, 10 MG, 1 tablet, Orally, Once a day; C ontinue Metoprolol Succinate ER Tablet Extended Release 24 Hour, 25 MG, 1 tablet, Orally, Once a day; C ontinue Lisinopril Tablet, 10 MG, TAKE 1 TABLET BY MOUTH EVERY DAY; C ontinue Aspirin Tablet Chewable, 81 MG, 1 tablet, Orally, Once a day; C ontinue hydroCHLOROthiazide Tablet, 25 MG, 1 tablet in the morning, Orally, Once a day. L AB: PROFILE, FASTING (COMPREHENSIVE METABOLIC) L AB: CBC w DIFF L AB: Lipid Panel 3. M ixed hyperlipidemia L AB: PROFILE, FASTING (COMPREHENSIVE METABOLIC) L AB: CBC w DIFF L AB: Lipid Panel * Procedure Codes: * Preventive Medicine: Counseling: S moking/Tobacco Use Patient counseled on the dangers of tobacco use and urged to quit. 0 05/29/2024 * Follow Up: 3 Months, 3 months (Reason: ov review labs, Routine follow-up) * Images: * Sign off status: Completed true * Provider: Chris Smith MD Date: 0 05/29/2024 Generated for Susana wallis/Richard/Kanikasmitting on: 1 10:56 AM EDT History and Physical Notes * HPI (History of Present Illness) Category Sub-Category Detail Notes COVID-19 Screening Questions Have you had any new onset fever, chills, cough, congestion, sore throat, shortness of breath, muscle aches?: No Examination Category Sub-Category Detail Notes General Examination GENERAL APPEARANCE: pleasant , well nourished, well developed, in no acute distress, calm and relaxed, man HEAD: atraumatic, normocep halic EYES: eomi, perrla, anicte yasemin, conjugate EARS: normal NOSE: septum intact NECK/THYROID: no jugular venous di stention, no carotid bruit, thyroid normal HEART: no clicks, gallops, murmurs, or rubs, regular rhythm, S1, S2 normal, no s3, or vascular bruits LUNGS: clear to auscultatio n ABDOMEN: bowel sounds normal, no ascites, no organomegaly, no mass NEUROLOGIC: alert and oriented, cranial nerves 2-12 grossly intact, deep tendon reflexes 2+ symmetrical, motor strength normal upper and lower extremities, sensory exam intact SKIN: no suspicious lesion s, anicteric, Moderate onychomycosis PERIPHERAL PULSES: normal BREASTS: no masses palpable b ilaterally MUSCULOSKELETAL: extremities unremark able, no clubbing, cyanosis or edema LYMPH NODES: no enlarged lymph no kiera,spleen normal RECTAL EXAM: not examined PSYCH: alert, oriented ORAL CAVITY: normal, unremarkable
--- OUTSIDE RECORDS SUMMARY | 2024-07-25 07:30 | XMS_ITS ---
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 Hugo Smith III Primary Care Provider [phone] Allergies Allergen (clinical drug ingredient) Drug/Non Drug Allergy documented on EMR Reaction Allergy Type Onset Date Status No Known Drug Allergy Unknown Drug Allergy Active Results Component Value Reference Range Notes Routine Culture Reviewed date:07/27/2024 08:13:39 PM Interpretation: Performing Lab:[facility], [address] [place] [id number] Notes/Report: FOREHEAD Routine Culture Report - external Routine Culture 1+ Mixed skin gurdeep REASON FOR VISIT Periorbital edema, Infected actinic keratosis on scalp, Hypertension, Coronary artery disease, Chronic lymphocytic leukemia. Medications Medication SIG (Take, Route, Frequency, Duration) Notes Start Date End Date Status Metoprolol Succinate ER 25 MG 1 tablet O rally Once a day Active hydroCHLOROthiazide 25 MG 1 tablet in th e morning Orally Once a day Active Doxycycline Hyclate 100 MG 1 capsule Ora lly twice a day for 10 days 07/25/2024 08/14/2024 Active Lisinopril 10 MG TAKE 1 TABLET BY MOUTH EVERY DAY Active Aspirin 81 MG 1 tablet Orally Once a day Active Rosuvastatin Calcium 10 MG 1 tablet Oral ly Once a day Active Social History Tobacco [...] Non-User Ex-cigaret te smoker Vital Signs Temperature 97.3 degrees Fahrenheit 07/26/19 25 Blood pressure systolic 140 mm Hg 07/26/19 25 Blood pressure diastolic 81 mm Hg 025 Heart Rate 52 /min 07/25/2024 Height 70 in 07/25/2024 Weight 158 lbs 07/25/2024 BMI 22.67 kg/m2 07/25/2024 Encounters Encounter Location Date Provider Diagnosis Hugo Smith III, MD [address] [place] [address] [place] [address] 07/25/2024 Hugo Smith Essential hypertensi on I10 ; Skin infection L08.9 ; Chronic lymphocytic leukemia C91.10 and Former smoker Z87.891 Assessments Encounter Date Diagnosis (ICD Code) Assessment Notes Treatment Notes Treatment Clinical Notes 07/25/2024 Essential hypertension (ICD-10 - I10) His systolic blood pressure is slightly high at 140. His body mass index was 22. We reviewed the elements of aggressive sodium restriction. He is exercising strenuously. His blood pressure will be checked frequently. Our goal is to reduce his systolic. 07/25/2024 Skin infection (ICD-10 - L08.9) The actinic keratosis on his forehead has become infected.. I have given him a prescription for doxycycline. A swab culture has been sent. I will see if dermatology will see him sooner. 07/25/2024 Chronic lymphocytic leukemia (ICD-10 - C91.10) His white blood cell count is 13,000. His diseases stable and does not require treatment at this time. 07/25/2024 Former smoker (ICD-10 - Z87.891) He is determined to remain abstinent. He has a plan to deal with stress and illness. Plan Of Treatment Medication Medication Name Sig Start Date Stop Date Notes Metoprolol Succinate ER 25 MG 1 tablet Orally Once a day hydroCHLOROthiazide 25 MG 1 tablet in e morning Orally Once a day Doxycycline Hyclate 100 MG 1 capsule Ora lly twice a day for 10 days 07/25/2024 08/14/2024 Lisinopril 10 MG TAKE 1 TABLET BY SEJAL TH EVERY DAY Aspirin 81 MG 1 tablet Orally Once a day Rosuvastatin Calcium 10 MG 1 tablet Orally Once a day Next Appt Details Follow Up: 2 - 3 Days, Reaso n: OV Provider Name:Hugo Smith , 04/03/2025 10:30:00 AM, [address] [place] [address] [address], [place], [phone], Provider Name:Hugo Smith , 08/22/2025 09:30:00 AM, [address] [place] [address] [place], [address], Progress Notes * PREM HenriqueDOB: 0 (73 yo M)Acc No.[id number]:07/25/2024 Patient: Porsha NORWOOD Henrique Provider: Chris Smith MD :1950 A ge:73 Y S ex:Male Date:07/25/2024 Address:[address] [place], [place] [id number] Subjective: * Chief Complaints: * P eriorbital edemaInfected actinic keratosis on scalpHypertensionCoronary artery diseaseChronic lymphocytic leukemia. * HPI: C OVID-19 Screening: I called Dr cannon office at [phone] spoke to Irina she will put a message in to Dr Cannon to see if they can see patient sooner. They will call patient with this appt information. He comes in as a same day visit because of a purulent discharge and infection recently in a large area of abnormal skin on his forehead. He has seen the subway guard numerous times about this and received various treatments. He has been told it as an actinic keratosis as it is described in the most recent dermatology note. His next dermatology appointment is in 2 weeks. He has pictures on his cell phone of a large yellowish purulent discharge over a large area of his for it. Today that area is dry and crusted. A culture was done. He was given doxycycline. We will try and have dermatology see him sooner. He says this all began as a red spot on his 400. He returned from a stay in [place] on July 12, 2024 and that is when before it became weepy and the discharge developed. He has significant edema under his eyes. Questions H ave you had any new onset fever, chills, cough, congestion, sore throat, shortness of breath, muscle aches? N o * ROS: G eneral/Constitutional: pain o nly normal aches and pains. C hills d enies.?Fatigue a dmits. F ever d enies. E NT: Decreased hearing d enies. R espiratory: Cough d enies. C ardiovascular: [...] have been noted. G enitourinary: Frequent urination o nce a night. M usculoskeletal: Muscle aches d enies. P ainful joints d enies. S ciatica d enies. W eakness d enies. S kin: Itching d enies. R chico d enies. S kin lesion(s)?A large area of the for head and vertex scalp is brown encrusted with palpable fluid underneath but no visible discharge. There is a large area of inflamed skin with the same process lateral to the right eye. T here is a large collection of fluid under each eye.. ? N eurologic: Difficulty speaking d enies. D izziness d enies.?Headache d enies. L ow back pain d enies. P sychiatric: Depressed mood d enies. * Medical History: * Surgical History: r otator cuff surgery, left 12/2016colonoscopy, negative findings 2002colonoscopy, Dr. Briggs, [facility], one inflammatory polyp 2013right shoulder rotor cuff surergy 08/2019left great big toe bone spur/ arthritis ardiac catheterization [facility] 60% occlusion circumflex branch January 2024No history * Hospitalization/Major Diagno stic Procedure: f ractured rib due to fall 12/2019No history * Family History: F ather: 82 yrs, diagnosed with HTN, Cancer. M other: 78 yrs, diagnosed with CVD. [...] x-cigarette smoker Diane gtz was born in [place], [place]. He has been to [place] for 35 years. They have a step child, Harsha. He has no grandchildren. He is retired from [employer], and has no exposures to toxic materials. He is not a Baptism. * Medications: T akingRosuvastatin Calcium 10 MG Tablet 1 tablet Orally Once a day Metoprolol Succinate ER 25 MG Tablet Extended Release 24 Hour 1 tablet Orally Once a day Lisinopril 10 MG Tablet TAKE 1 TABLET BY MOUTH EVERY DAY Aspirin 81 MG Tablet Chewable 1 tablet Orally Once a day hydroCHLOROthiazide 25 MG Tablet 1 tablet in the morning Orally Once a day Medication List reviewed and reconciled with the patientTaking Rosuvastatin Calcium 10 MG Tablet 1 tablet Orally Once a day Taking Metoprolol Succinate ER 25 MG Tablet Extended Release 24 Hour 1 tablet Orally Once a day Taking Lisinopril 10 MG Tablet TAKE 1 TABLET BY MOUTH EVERY DAY Taking Aspirin 81 MG Tablet Chewable 1 tablet Orally Once a day Taking hydroCHLOROthiazide 25 MG Tablet 1 tablet in the morning Orally Once a day Medication List reviewed and reconciled with the patient * Allergies: N o Known Drug Allergyno[Allergies Verified] Objective: * Vitals: H t: 70, Wt:158, BMI:22.67, BP:140/81, HR:52, Temp:97.3, Ht-cm: 177.8, Wt-k.67. * Examination: G eneral Examination: GENERAL APPEARANCE: p leasant, well nourished, well developed, in no acute distress, calm and relaxed, man. HEAD: F or head and vertex scalp covered with Zofran crusted area with palpable fluid beneath, no discharge noted a large area of erythematous skin to the right of the right eye, pouches of edema fluid beneath each eye. EYES: e nam, perrla, anicteric, conjugate. EARS: n ormal. NOSE: s eptum intact. ORAL CAVITY: n ormal, unremarkable. NECK/THYROID: n o jugular venous distention, no carotid bruit, thyroid normal. LYMPH NODES: n o enlarged lymph nodes,spleen normal. SKIN: A ctinic keratosis on scalp has become larger requested infected skin. HEART: n o clicks, gallops, murmurs, or [...] a lert, oriented. Assessment: * Assessment: 1. S kin infection - L08.9 (Primary) N otes :The actinic keratosis on his forehead has become infected.. I have given him a prescription for doxycycline. A swab culture has been sent. I will see if dermatology will see him sooner. 2 . E ssential hypertension - I10 N otes :His systolic blood pressure is slightly high at 140. His body mass index was 22. We reviewed the elements of aggressive sodium restriction. He is exercising strenuously. His blood pressure will be checked frequently. Our goal is to reduce his systolic. 3 . C hronic lymphocytic leukemia - C91.10 N otes :His white blood cell count is 13,000. His diseases stable and does not require treatment at this time. 4 . F ormer smoker - Z87.891 N otes :He is determined to remain abstinent. He has a plan to deal with stress and illness. Plan: * Treatment: Value Reference Range R outine Culture No growth to date. - 2.?Essential hypertension? Continue Rosuvastatin Calcium Tablet, 10 MG, 1 tablet, Orally, Once a day;?Continue MetoprololSuccinate ER Tablet Extended Release 24 Hour, 25 MG, 1 tablet, Orally, Once a day;?Continue Lisinopril Tablet, 10 MG, TAKE 1 TABLET BY MOUTH EVERY DAY;?Continue Aspirin Tablet Chewable, 81 MG, 1 tablet, Orally, Once a day;?Continue hydroCHLOROthiazide Tablet, 25 MG, 1 tablet in the morning, Orally, Once a day;?Start Doxycycline Hyclate Capsule, 100 MG, 1 capsule, Orally, twicea day, 10 days, 20 Capsule, Refills 1.?? * Procedure Codes: * Preventive Medicine: Counseling: S moking/Tobacco Use Patient counseled on the dangers of tobacco use and urged to quit. 0 07/25/2024 * Follow Up: 2 - 3 Days (Reason: OV) * Images: * Sign off status: Completed true * Provider: Chris Smith MD Date: 0 07/25/2024 Generated for Susana wallis/Richard/Niiitting on: 1 10:59 AM EDT History and Physical Notes * HPI (History of Present Illness) Category Sub-Category Detail Notes COVID-19 Screening Questions Have you had any new onset fever, chills, cough, congestion, sore throat, shortness of breath, muscle aches?: No Examination Category Sub-Category Detail Notes General Examination GENERAL APPEARANCE: pleasant , well nourished, well developed, in no acute distress, calm and relaxed, man HEAD: For head and vertex scalp covered with Zofran crusted area with palpable fluid beneath, no discharge noted a large area of erythematous skin to the right of the right eye, pouches of edema fluid beneath each eye EYES: eomi, perrla, anicte yasemin, conjugate EARS: [...] and lower extremities, sensory exam intact SKIN: Actinic keratosis on scalp has become larger requested infected skin PERIPHERAL PULSES: normal BREASTS: no masses palpable b ilaterally MUSCULOSKELETAL: extremities unremark able, no clubbing, cyanosis or edema LYMPH NODES: no enlarged lymph no kiera,spleen normal RECTAL EXAM: not examined PSYCH: alert, oriented ORAL CAVITY: normal, unremarkable
--- OUTSIDE RECORDS SUMMARY | 2024-07-28 07:30 | XMS_ITS ---
Author Organization Hugo Smith III, MD Address [address] [place] [address] [place] [address] Care Team Providers Care Administrative Accountant Name Role Phone Dr. Hugo Smith III Primary Care Provider Allergies Allergen (clinical drug ingredient) Drug/Non Drug Allergy documented on EMR Reaction Allergy Type Onset Date Status No Known Drug Allergy Unknown Drug Allergy Active REASON FOR VISIT Skin infection on forehead, Chronic lymphocytic leukemia, Eczema, Coronary artery disease, Benign prostatic hypertrophy Medications Medication SIG (Take, Route, Frequency, Duration) Notes Start Date End Date Status Aspirin 81 MG 1 tablet Orally Once a day Active hydroCHLOROthiazide 25 MG 1 tablet in th e morning Orally Once a day Active Doxycycline Hyclate 100 MG 1 capsule Ora lly twice a day 07/25/2024 Active Metoprolol Succinate ER 25 MG 1 tablet O rally Once a day Active Lisinopril 10 MG TAKE 1 TABLET BY SEJAL TH EVERY DAY Active Rosuvastatin Calcium 10 MG 1 tablet [...] Non-User Ex-cigaret te smoker Vital Signs Temperature 98.1 degrees Fahrenheit 07/29/19 25 Blood pressure systolic 130 mm Hg 07/29/19 25 Blood pressure diastolic 74 mm Hg 025 Heart Rate 53 /min 07/28/2024 Height 70 in 07/28/2024 Weight 158 lbs 07/28/2024 BMI 22.67 kg/m2 07/28/2024 Encounters Encounter Location Date Provider Diagnosis Hugo Smith III, MD [address] [place] [address] 07/28/2024 Hugo Smith Essential hypertensi on I10 ; Skin infection L08.9 ; Former smoker Z87.891 ; Chronic lymphocytic leukemia C91.10 and Coronary atherosclerosis due to calcified coronary lesion I25.84 Assessments Encounter Date Diagnosis (ICD Code) Assessment Notes T reatment Notes Treatment Clinical Notes 07/28/2024 Essential hypertension (ICD-10 - I10) His blood pressure today is 130/74 and no changee in his regimen is necessary. 07/28/2024 Skin infection (ICD-10 - L08.9) The infection has resolved. He has finished the antibiotic. The skin culture grew only normal skin gurdeep. 07/28/2024 Former smoker (ICD-1 0 - Z87.891) He is determined to remain abstinent. He has a plan to deal with stress and illness. 07/28/2024 Chronic lymphocytic leukemia (ICD-10 - C91.10) His white blood cell count is 13,000. His diseases stable and does not require treatment at this time. 07/28/2024 Coronary atherosclerosis due to calcified coronary lesion (ICD-10 - I25.84) He had inferolateral changes on a recent stress test consistent with ischemia. A cardiac catheterization is going to be done at the end of January 17, 2024. I counseled him at length about not exceeding certain activity levels between now and then. Plan Of Treatment Medication Medication Name Sig Start Date Stop Date Notes Aspirin 81 MG 1 tablet Orally Once a day hydroCHLOROthiazide 25 MG 1 tablet in th e morning Orally Once a day Doxycycline Hyclate 100 MG 1 capsule Orally twice a day Metoprolol Succinate ER 25 MG 1 tablet Orally Once a day Lisinopril 10 MG TAKE 1 TABLET BY SEJAL TH EVERY DAY Rosuvastatin Calcium 10 MG 1 tablet Orally Once a day Next Appt Details Follow Up: As Scheduled, Shanthi son: OV Provider Name:Hugo Smith , 04/03/2025 10:30:00 AM, [address] [place] [address] [address], [place], [address], Provider Name:Hugo Smith , 08/22/2025 09:30:00 AM, [address] [place] [address] [address], [place], [address], Progress Notes * Henrique AMARODOB: 0 (73 yo M)Acc No.[id number]:07/28/2024 Progress Notes Patient: Henrique SOTELO Provider: Chris Smith MD :1950 A ge:73 Y S ex:Male Date:07/28/2024 Address:[address] [place] [address], [facility], [id number] Subjective: * Chief Complaints: * S kin infection on foreheadChronic lymphocytic leukemiaEczemaCoronary artery diseaseBenign prostatic hypertrophy * HPI: C OVID-19 Screening: He was seen recently for a large crusted infection in the skin over his forehead and to the right of his eye. He had large pouches of fluid under each eye. He was given doxycycline. On examination today the fluid pouches have disappeared in all of the infection is much better. The skin is dry and hard and healing. He has been compliant with his medication. He saw his circus laborer, Dr. Crandall, who agreed with current treatment. He has had no fever or chills. He denies any recent angina. He will return to normal follow-up. Questions H ave you had any new [...] enies. R chico d enies. S kin lesion(s)?Skin infection to the right of the right eye and on the scalp has almost completely resolved..? N eurologic: Difficulty speaking d enies. D izziness d enies.?Headache d enies. L ow back pain d enies. P sychiatric: Depressed mood d enies. * Medical History: * Surgical History: r otator cuff surgery, left 12/2016colonoscopy, negative findings 2003colonoscopy, Dr. Briggs, [facility], one inflammatory polyp 2013right shoulder rotor [...] x-cigarette smoker Diane gtz was born in [place], [place]. He has been to Karlee for 35 years. They have a step child, Harsha. He has no grandchildren. He is retired from [employer], and has no exposures to toxic materials. He is not a [employer]. * Medications: T akingRosuvastatin Calcium 10 MG Tablet 1 tablet Orally Once a day Metoprolol Succinate ER 25 MG Tablet Extended Release 24 Hour 1 tablet Orally Once a day Lisinopril 10 MG Tablet TAKE 1 TABLET BY MOUTH EVERY DAY Aspirin 81 MG Tablet Chewable 1 tablet Orally Once a day Doxycycline Hyclate 100 MG Capsule 1 capsule Orally twice a day , stop date 08/14/2024Taking Rosuvastatin Calcium 10 MG Tablet 1 tablet Orally Once a day Taking Metoprolol Succinate ER 25 MG Tablet Extended Release 24 Hour 1 tablet Orally Once a day Taking Lisinopril 10 MG Tablet TAKE 1 TABLET BY MOUTH EVERY DAY Taking Aspirin 81 MG Tablet Chewable 1 tablet Orally Once a day Taking Doxycycline Hyclate 100 MG Capsule 1 capsule Orally twice a day , stop date 08/14/2024DiscontinuedhydroCHLOROthiazide 25 MG Tablet 1 tablet in the morning Orally Once a day Medication List reviewed and reconciled with the patientDiscontinued hydroCHLOROthiazide 25 MG Tablet 1 tablet in the morning Orally Once a day Medication List reviewed and reconciled with the patient * Allergies: N o Known Drug Allergyno[Allergies Verified] Objective: * Vitals: H t: 70, Wt:158, BMI:22.67, BP:130/74, HR:53, Temp:98.1, Ht-cm: 177.8, Wt-k.67. * P ast Orders: L ab:Routine Culture (Order Date - 07/25/2024) (Collection Date & Time - 07/25/2024 11:55 AM) Value Reference Range Routine Culture 1+ Mixed skin gurdeep - L ab:Gram stain (Order Date - 07/25/2024) (Collection Date & Time - 07/25/2024 11:55 AM) Value Reference Range Gram stain No organisms seen - Lab:Complete Blood Count Aut o Diff * [...] 0.000 (Ref Range: 0.0-0.012 X10*3/uL) * Lab:[facility]. Bernadine l Fast * Collection Date 05/24/2024 03/13/2024 [...] mg/dL) 9.9 (Ref Range: 8.4-10.2 mg/dL) * Lab:Lipid Panel * Collection Date 05/24/2024 03/13/2024 [...] 12/08/2023 SLIDE REVIEW VERIFIED VERIFIED VERIFIED * Examination: G eneral Examination: GENERAL APPEARANCE: m an. HEAD: a traumatic, normocephalic. EYES: e nam, perrla, anicteric, conjugate, Fluid collection below each eye has resolved. EARS: n ormal. NOSE: s eptum intact. ORAL CAVITY: n ormal, unremarkable. NECK/THYROID: n o jugular venous distention, no carotid bruit, thyroid normal. LYMPH NODES: n o enlarged lymph nodes,spleen normal. SKIN: n o suspicious lesions, anicteric, The large cutaneous infection in the forehead has completely resolved, Mild onychomycosis. HEART: n o clicks, gallops, murmurs, [...] infection - L08.9 (Primary) N otes :The infection has resolved. He has finished the antibiotic. The skin culture grew only normal skin gurdeep. 2 . E ssential hypertension - I10 N otes :His blood pressure today is 130/74 and no changee in his regimen is necessary. 3 . F ormer smoker - Z87.891 N otes :He is determined to remain abstinent. He has a plan to deal with stress and illness. 4 . C hronic lymphocytic leukemia - C91.10 N otes :His white blood cell count is 13,000. His diseases stable and does not require treatment at this time. 5 . C oronary atherosclerosis due to calcified coronary lesion - I25.84 ? N otes :He had inferolateral changes on a recent stress test consistent with ischemia. A cardiac catheterization is going to be done at the end of January 17, 2024. I counseled him at length about not exceeding certain activity levels between now and then. Plan: * Treatment: * Procedure Codes: * Preventive Medicine: Counseling: S moking/Tobacco Use Patient counseled on the dangers of tobacco use and urged to quit. 0 07/28/2024 * Follow Up: A s Scheduled (Reason: OV) * Images: * Sign off status: Completed true * Provider: Chris Smith MD Date: 0 07/28/2024 Generated for Susana wallis/Richard/eTransmitting on: 1 10:58 AM EDT History and Physical Notes * HPI (History of Present Illness) Category Sub-Category Detail Notes COVID-19 Screening Questions Have you had any new onset fever, chills, cough, congestion, sore throat, shortness of breath, muscle aches?: No Examination Category Sub-Category Detail Notes General Examination GENERAL APPEARANCE: man HEAD: atraumatic, normocep halic EYES: eomi, perrla, anicte yasemin, conjugate, Fluid collection below each eye has resolved EARS: normal NOSE: septum intact NECK/THYROID: no [...] intact SKIN: no suspicious lesion s, anicteric, The large cutaneous infection in the forehead has completely resolved, Mild onychomycosis PERIPHERAL PULSES: normal BREASTS: no masses palpable b ilaterally MUSCULOSKELETAL: extremities unremark able, no clubbing, cyanosis or edema LYMPH NODES: no enlarged lymph no kiera,spleen normal RECTAL EXAM: not examined PSYCH: alert, oriented ORAL CAVITY: normal, unremarkable
--- OUTSIDE RECORDS SUMMARY | 2024-08-21 05:30 | XMS_ITS ---
Author Organization Hugo Smith III, MD Address [address] [place] [address] Care Team Providers Care Culinary Artist Name Role Phone Dr. Hugo Smith III Primary Care Provider Allergies Allergen (clinical drug ingredient) Drug/Non Drug Allergy documented on EMR Reaction Allergy Type Onset Date Status No Known Drug Allergy Unknown Drug Allergy Active No Known Food Allergy Unknown Drug Allergy Active Results Component Value Reference Range Notes URINE DIP STICK Reviewed date:08/21/2024 10:39:00 AM Interpretation: Performing Lab: Notes/Report: SG 1.010 1.005 - 1.025 pH 6.5 5.0 - 9.0 BETO Negative Negative - NIT Negative Negative - PRO 15 Negative - Trace GLU Negative Negative - KET 5 Negative - UBG 0.2 0.1 - 1.8 ANJU Negative 0.2 - 1.3 BLD Positive Negative - REASON FOR VISIT annual exam Medications Medication SIG (Take, Route, Frequency, Duration) Notes Start Date End Date Status Aspirin 81 MG 1 tablet Orally Once a day Active Lisinopril 10 MG [...] Observation Description Sex Assigned At Male Tobacco Control (Standard) Question Answer Notes Tobacco use: Former smoker How long has it been since you last smoked? Grea ter than 10 years Additional Findings: Tobacco non-user Ex-cigaret te smoker AUDIT-C (Standard) Question Answer Notes Did you have a drink contain ing alcohol in the past year? Yes How often did you have six o r more drinks on one occasion in the past year? 4 or more times a week (4 points) How many drinks did you have on a typical day when you were drinking in the past year? 1 or 2 drinks (0 point) How often did you have a dri nk containing alcohol in the past year? Never (0 point) Points 4 Interpretation Positive Vital Signs Temperature 98.3 degrees Fahrenheit 08/22/19 25 Blood pressure systolic 137 mm Hg 08/22/19 25 Blood pressure diastolic 68 mm Hg 025 Heart Rate 43 /min 08/21/2024 Height 70 in 08/21/2024 Weight 153 lbs 08/21/2024 BMI 21.95 kg/m2 08/21/2024 Encounters Encounter Location Date Provider Diagnosis Hugo Smith III, MD [address] [place] [address] [place] [address] 08/21/2024 Hugo Smith Essential hypertensi on I10 ; Chronic lymphocytic leukemia C91.10 ; Mixed hyperlipidemia E78.2 ; Hemangioma of liver D18.03 ; Left upper lobe pulmonary nodule R91.1 ; Former smoker Z87.891 and Coronary atherosclerosis due to calcified coronary lesion I25.84 Assessments Encounter Date Diagnosis (ICD Code) Assessment Notes T reatment Notes Treatment Clinical Notes 08/21/2024 Essential hypertension (ICD-10 - I10) His blood pressure today is 137/68 and no changee in his regimen is necessary. 08/21/2024 Chronic lymphocytic leukemia (ICD-10 - C91.10) His chronic lymphocytic leukemia is stable and does not require treatment at this time. His platelet count has been trending down now being 133,000. This may be an autoimmune process and will be observed carefully. It may eventually need treatment. He has 2200 lymphocytes. We discussed this at length. 08/21/2024 Mixed hyperlipidemia (ICD-10 - E78.2) His lipids aree currently stable and require no treatment. 08/21/2024 Hemangioma of liver (ICD-10 - D18.03) This was a finding on imaging and will be observed. 08/21/2024 Left upper lobe pulmonary nodule (ICD-10 - [...] done in 2023. This has been scheduled. 08/21/2024 Former smoker (ICD-1 0 - Z87.891) He is determined to remain abstinent. He has a plan to deal with stress and illness. 08/21/2024 Coronary atherosclerosis due to calcified coronary lesion [...] 10 MG TAKE 1 TABLET BY SEJAL EVERY DAY Metoprolol Succinate ER 25 MG 1 tablet Orally Once a day Rosuvastatin Calcium 10 MG 1 tablet Orally Once a day Next Appt Details Follow Up: 3 Months, Reason: OV Provider Name:Hugo Smith , 04/03/2025 10:30:00 AM, [address] [place] [address] [address], [place], [address], Provider Name:uHgo Smith , 08/22/2025 09:30:00 AM, [address] [place] [address] [address], [place], [address], Progress Notes * Henrique AMARODOB: 0 (73 yo M)Acc No.[id number]:08/21/2024 Progress Notes Patient: Henrique SOTELO Provider: Chris Smith MD :1950 A ge:73 Y S ex:Male Date:08/21/2024 Address:[address] [place], [place] [address] Subjective: * Chief Complaints: * A nnual exam * HPI: D epression Screening: He returns to the office at the age of 73 for an annual physical examination. He is due for a colonoscopy and this will be scheduled with his pantry worker Dr. Hugo Briggs. His blood work is available and was reviewed with him. His chronic lymphocytic leukemia is stable and requires no treatment at this time. He has leukocytosis and mild thrombocytopenia. There are no enlarged lymph nodes or splenomegaly. The platelet count has been slowly dropping which may represent an autoimmune process which may require treeatment. His blood pressure was stable. He has been free of angina and exertional dyspnea. He rises from sleep once a night to urinate. PHQ-9 L ittle interest or pleasure in doing things?Not at all F eeling down, depressed, or hopeless N ot at all T rouble falling or staying asleep, or sleeping too much N ot at all F eeling tired or having little energy N ot at all P oor appetite or overeating N ot at all F eeling bad about yourself or that you are a failure, or have let yourself or your family down N ot at all T rouble concentrating on things, such as reading the newspaper or watching television N ot at all M oving or speaking so slowly that other people could have noticed; or the opposite, being so fidgety or restless that you have been moving around a lot more than usual N ot at all T houghts that you would be better off or of hurting yourself in some way N ot at all T otal Score 0 C OVID-19 Screening: Questions H ave you had any new onset fever, chills, cough, congestion, sore throat, shortness of breath, muscle aches? N o S ELLA Questions: SDOH Questions I n the past year have you been worried about losing your housing? N o I n the past year have you or any family members you live with been unable to get any of the following when it was really needed? Check all that apply: N one F all Risk Screening: Fall History H ave you had any falls with injury in the past year? N o H ave you had two or more falls in the past year? N o F all Risk Assessment: N o falls in the past year * ROS: G eneral/Constitutional: pain o nly [...] left 12/2016colonoscopy, negative findings 2003colonoscopy, Dr. Briggs, [facility], one inflammatory polyp 2013right shoulder rotor cuff surergy 08/2019left great big toe bone spur/ arthritis ardiac catheterization [facility] 60% occlusion circumflex branch Januaryyst surgically removed from the middle of the back 06/27/2023 * Hospitalization/Major Diagno stic Procedure: f ractured [...] Social History: T obacco Use: T obacco Control (Standard) T obacco use: F ormer smoker H ow long has it been since you last smoked??Greater than 10 years A dditional Findings: Tobacco non-user E x-cigarette smoker D rugs/Alcohol: D rugs H ave you used drugs other than those for medical reasons in the past 12 months? N o D rug/Alcohol: A BERNARDA-C (Standard) D id you have a drink containing alcohol in the past year? Y es H ow often did you have six or more drinks on one occasion in the past year? 4 or more times a week (4 points) H ow many drinks did you have on a typical day when you were drinking in the past year? 1 or 2 drinks (0 point) H ow often did you have a drink containing alcohol in the past year? N ever (0 point) P oints 4 I nterpretation P ositive H tresa was born in [place], [place]. He has been to Karlee for 35 years. They have a step child, Harsha. He has no grandchildren. He is retired from [employer], and has no exposures to toxic materials. He is not a Mu-ism. * Medications: T akingRosuvastatin Calcium 10 MG [...] Chewable 1 tablet Orally Once a day DiscontinuedhydroCHLOROthiazide 25 MG Tablet 1 tablet in the morning Orally Once a day Doxycycline Hyclate 100 MG Capsule 1 capsule Orally twice a day Medication List reviewed and reconciled with the patientDiscontinued hydroCHLOROthiazide 25 MG Tablet 1 tablet in the morning Orally Once a day Discontinued Doxycycline Hyclate 100 MG Capsule 1 capsule Orally twice a day Medication List reviewed and reconciled with the patient * Allergies: N o Known Drug AllergyNo Known Food Allergyno[Allergies Verified] Objective: * Vitals: H t: 70, Wt:153, BMI:21.95, BP:137/68, HR:43, Temp:98.3, Ht-cm: 177.8, Wt-k.4. * P ast Orders: L ab:Gram stain (Order Date - 07/25/2024) (Collection Date & Time - 07/25/2024 11:55 AM) Value Reference Range Gram stain No organisms seen - L ab:Routine Culture (Order Date - 07/25/2024) (Collection Date & Time - 07/25/2024 11:55 AM) Value Reference Range Routine Culture 1+ Mixed skin gurdeep - Lab:SLIDE REVIEW * Collection Date 08/17/2024 05/24/2024 03/13/2024 4 Collection Time 10:55 AM 10:10 AM 09:52 AM 08:50 AM Order Date 08/17/2024 05/24/2024 03/13/2024 12/08/2023 SLIDE REVIEW VERIFIED VERIFIED VERIFIED VERIFIED * Lab:Lipid Panel * Collection Date 08/17/2024 05/24/2024 03/13/2024 Collection Time 10:55 AM 10:10 AM 09:52 AM 08:50 AM Order Date 08/17/2024 05/24/2024 03/13/2024 12/08/2023 Triglycerides 71 (Ref Range: <150 mg/dL) 114 (Ref Range: <150 mg/dL) 75 (Ref Range: <150 mg/dL) 97 (Ref Range: <150 mg/dL) Cholesterol 125 (Ref Range: <200 mg/dL) 151 (Ref Range: <200 mg/dL) 140 (Ref Range: <200 mg/dL) 133 (Ref Range: <200 mg/dL) LDL Cholesterol Calculated 56 (Ref Range: <100 mg/dL) 76 (Ref Range: <100 mg/dL) 64 (Ref Range: <100 mg/dL) 59 (Ref Range: <100 mg/dL) HDL Cholesterol 55 (Ref Range: >40 mg/dL) 53 (Ref Range: >40 mg/dL) 61 (Ref Range: >40 mg/dL) 55 (Ref Range: >40 mg/dL) * Lab:Comprehensive [place] [place] [facility] * Collection Date 08/17/2024 05/24/2024 03/13/2024 Collection Time 10:55 AM 10:10 AM 09:52 AM 08:50 AM Order Date 08/17/2024 05/24/2024 03/13/2024 12/08/2023 Sodium 140 (Ref Range: 135-145 mmol/L) 139 (Ref Range: 135-145 mmol/L) 138 (Ref Range: 135-145 mmol/L) 136 (Ref Range: 135-145 mmol/L) Bilirubin Total 0.5 (Ref Range: 0.0-1.0 mg/dL) 0.6 (Ref Range: 0.0-1.0 mg/dL) 0.4 (Ref Range: 0.0-1.0 mg/dL) 0.7 (Ref Range: 0.0-1.0 mg/dL) Aspartate Amino Transferase 43 H (Ref Range: 5-37 U/L) 42 H (Ref Range: 5-37 U/L) 53 H (Ref Range: 5-37 U/L) 35 (Ref Range: 5-37 U/L) Alanine Aminotransferase 44 H (Ref Range: 0-40 U/L) 47 H (Ref Range: 0-40 U/L) 66 H (Ref Range: 0-40 U/L) 31 (Ref Range: 0-40 U/L) Total Protein 6.3 L (Ref Range: 6.5-8.0 g/dL) 7.4 (Ref Range: 6.5-8.0 g/dL) 6.9 (Ref Range: 6.5-8.0 g/dL) 6.9 (Ref Range: 6.5-8.0 g/dL) Albumin Level 3.9 (Ref Range: 3.5-5.0 g/dL) 4.4 (Ref Range: 3.5-5.0 g/dL) 4.4 (Ref Range: 3.5-5.0 g/dL) 4.3 (Ref Range: 3.5-5.0 g/dL) Alkaline Phosphatase 48 (Ref Range: 39-117 U/L) 47 (Ref Range: 39-117 U/L) 47 (Ref Range: 39-117 U/L) 39 (Ref Range: 39-117 U/L) Potassium 4.5 (Ref Range: 3.3-5.1 mmol/L) 5.1 (Ref Range: 3.3-5.1 mmol/L) 4.2 (Ref Range: 3.3-5.1 mmol/L) 4.1 (Ref Range: 3.3-5.1 mmol/L) Chloride 108 (Ref Range: 96-108 mmol/L) 108 (Ref Range: 96-108 mmol/L) 103 (Ref Range: 96-108 mmol/L) 101 (Ref Range: 96-108 mmol/L) Carbon Dioxide 27 (Ref Range: 22-29 mmol/L) 27 (Ref Range: 22-29 mmol/L) 30 H (Ref Range: 22-29 mmol/L) 29 (Ref Range: 22-29 mmol/L) Anion Gap 10 L (Ref Range: 12-20) 9 L (Ref Range: 12-20) 9 L (Ref Range: 12-20) 10 L (Ref Range: 12-20) Blood Urea Nitrogen 21 H (Ref Range: 9-16 mg/dL) 16 (Ref Range: 9-16 mg/dL) 19 H (Ref Range: 9-16 mg/dL) 19 H (Ref Range: 9-16 mg/dL) Creatinine 1.14 (Ref Range: 0.5-1.4 mg/dL) 1.13 (Ref Range: 0.5-1.4 mg/dL) 1.21 (Ref Range: 0.5-1.4 mg/dL) 1.13 (Ref Range: 0.5-1.4 mg/dL) Estimated Glomerular Filt Rate > 60 > 60 59 > 60 Glucose Fasting 93 (Ref Range: 60-99 mg/dL) 96 (Ref Range: 60-99 mg/dL) 97 (Ref Range: 60-99 mg/dL) 90 (Ref Range: 60-99 mg/dL) Calcium 9.2 (Ref Range: 8.4-10.2 mg/dL) 9.1 (Ref Range: 8.4-10.2 mg/dL) 9.7 (Ref Range: 8.4-10.2 mg/dL) 9.9 (Ref Range: 8.4-10.2 mg/dL) * Lab:Complete Blood Count Aut o Diff * Collection Date 08/17/2024 05/24/2024 03/13/2024 Collection Time 10:55 AM 10:10 AM 09:52 AM 08:50 AM Order Date 08/17/2024 05/24/2024 03/13/2024 12/08/2023 White Blood Count 11.4 H (Ref Range: 4.8-10.8 X10*3/uL) 13.0 H (Ref Range: 4.8-10.8 X10*3/uL) 12.9 H (Ref Range: 4.8-10.8 X10*3/uL) 11.1 H (Ref Range: 4.8-10.8 X10*3/uL) Red Blood Count 4.29 L (Ref Range: 4.60-5.80 X10*6/uL) 4.37 L (Ref Range: 4.60-5.80 X10*6/uL) 4.60 (Ref Range: 4.60-5.80 X10*6/uL) 4.44 L (Ref Range: 4.60-5.80 X10*6/uL) Hemoglobin 13.2 L (Ref Range: 14.0-18.0 g/dl) 13.6 L (Ref Range: 14.0-18.0 g/dl) 14.3 (Ref Range: 14.0-18.0 g/dl) 14.1 (Ref Range: 14.0-18.0 g/dl) Hematocrit 40.4 L (Ref Range: 42.0-52.0 %) 40.8 L (Ref Range: 42.0-52.0 %) 43.3 (Ref Range: 42.0-52.0 %) 41.3 L (Ref Range: 42.0-52.0 %) Mean Corpuscular Volume 94.2 (Ref Range: 80.0-98.0 fL) 93.4 (Ref Range: 80.0-98.0 fL) 94.1 (Ref Range: 80.0-98.0 fL) 93.0 (Ref Range: 80.0-98.0 fL) Mean Corpuscular Hemoglobin 30.8 (Ref Range: 27.0-33.0 pg) 31.1 (Ref Range: 27.0-33.0 pg) 31.1 (Ref Range: 27.0-33.0 pg) 31.8 (Ref Range: 27.0-33.0 pg) Mean Corpuscular HGB Conc 32.7 (Ref Range: 31.0-36.0 g/dl) 33.3 (Ref Range: 31.0-36.0 g/dl) 33.0 (Ref Range: 31.0-36.0 g/dl) 34.1 (Ref Range: 31.0-36.0 g/dl) Red Cell Distribution Width 12.4 (Ref Range: 11.0-16.0 %) 12.4 (Ref Range: 11.0-16.0 %) 12.2 (Ref Range: 11.0-16.0 %) 11.9 (Ref Range: 11.0-16.0 %) Platelet Count 131 L (Ref Range: 160-400 X10*3/uL) 137 L (Ref Range: 160-400 X10*3/uL) 154 L (Ref Range: 160-400 X10*3/uL) 153 L (Ref Range: 160-400 X10*3/uL) Mean Platelet Volume 11.8 (Ref Range: 9.4-12.4 fL) 10.9 (Ref Range: 9.4-12.4 fL) 10.7 (Ref Range: 9.4-12.4 fL) 10.9 (Ref Range: 9.4-12.4 fL) Neutrophils Percent Auto 19.5 L (Ref Range: 45-73 %) 24.4 L (Ref Range: 45-73 %) 26.0 L (Ref Range: 45-73 %) 26.0 L (Ref Range: 45-73 %) Imm Gran Pct Auto 0.2 (Ref Range: 0.0-0.4 %) 0.2 (Ref Range: 0.0-0.4 %) 0.1 (Ref Range: 0.0-0.4 %) 0.1 (Ref Range: 0.0-0.4 %) Lymphocytes Percent Auto 73.1 H (Ref Range: 20-40 %) 68.5 H (Ref Range: 20-40 %) 64.7 H (Ref Range: 20-40 %) 65.9 H (Ref Range: 20-40 %) Monocytes Percent Auto 5.3 (Ref Range: 2-11 %) 4.9 (Ref Range: 2-11 %) 7.9 (Ref Range: 2-11 %) 6.2 (Ref Range: 2-11 %) Eosinophils Percent Auto 1.4 (Ref Range: 0-4 %) 1.5 (Ref Range: 0-4 %) 0.8 (Ref Range: 0-4 %) 1.2 (Ref Range: 0-4 %) Basophils Percent Auto 0.5 (Ref Range: 0-2 %) 0.5 (Ref Range: 0-2 %) 0.5 (Ref Range: 0-2 %) 0.6 (Ref Range: 0-2 %) NRBC Pct Auto 0.0 (Ref Range: 0.0-0.2 /100WBC) 0.0 (Ref Range: 0.0-0.2 /100WBC) 0.0 (Ref Range: 0.0-0.2 /100WBC) 0.0 (Ref Range: 0.0-0.2 /100WBC) Neutrophils Absolute Auto 2.2 (Ref Range: 2.0-8.3 x10*3/uL) 3.2 (Ref Range: 2.0-8.3 x10*3/uL) 3.4 (Ref Range: 2.0-8.3 x10*3/uL) 2.9 (Ref Range: 2.0-8.3 x10*3/uL) Imm Gran Abs Auto 0.02 (Ref Range: 0.00-0.03 X10*3/uL) 0.02 (Ref Range: 0.00-0.03 X10*3/uL) 0.01 (Ref Range: 0.00-0.03 X10*3/uL) 0.01 (Ref Range: 0.00-0.03 X10*3/uL) Lymphocytes Absolute Auto 8.3 H (Ref Range: 1.2-4.9 X10*3/uL) 8.9 H (Ref Range: 1.2-4.9 X10*3/uL) 8.4 H (Ref Range: 1.2-4.9 X10*3/uL) 7.3 H (Ref Range: 1.2-4.9 X10*3/uL) Monocytes Absolute Auto 0.6 (Ref Range: 0.1-1.2 X10*3/uL) 0.6 (Ref Range: 0.1-1.2 X10*3/uL) 1.0 (Ref Range: 0.1-1.2 X10*3/uL) 0.7 (Ref Range: 0.1-1.2 X10*3/uL) Eosinophils Absolute Auto 0.2 (Ref Range: 0.0-0.4 X10*3/uL) 0.2 (Ref Range: 0.0-0.4 X10*3/uL) 0.1 (Ref Range: 0.0-0.4 X10*3/uL) 0.1 (Ref Range: 0.0-0.4 X10*3/uL) Basophils Absolute Auto 0.1 (Ref Range: 0.0-0.2 X10*3/uL) 0.1 (Ref Range: 0.0-0.2 X10*3/uL) 0.1 (Ref Range: 0.0-0.2 X10*3/uL) 0.1 (Ref Range: 0.0-0.2 X10*3/uL) NRBC Abs Auto 0.000 (Ref Range: 0.0-0.012 X10*3/uL) 0.000 (Ref Range: 0.0-0.012 X10*3/uL) 0.000 (Ref Range: 0.0-0.012 X10*3/uL) 0.000 (Ref Range: 0.0-0.012 X10*3/uL) * Examination: G eneral Examination: GENERAL APPEARANCE: [...] normal. SKIN: n o suspicious lesions, anicteric, Mild eczema. HEART: n o clicks, gallops, murmurs, or [...] leukemia - C91.10 (Primary) N otes :His chronic lymphocytic leukemia is stable and does not require treatment at this time. His platelet count has been trending down now being 133,000. This may be an autoimmune process and will be observed carefully. It may eventually need treatment. He has 2200 lymphocytes.? We discussed this at length. 2 . E ssential hypertension - I10 N otes :His blood pressure today is 137/68 and no changee in his regimen is necessary. 3 . M ixed hyperlipidemia - E78.2 N otes :His lipids aree currently stable and require no treatment. 4 . H emangioma of liver - D18.03 N otes :This was a finding on imaging and will be observed. 5 . L eft upper lobe pulmonary nodule - R91.1 N otes :He is an ex-smoker and has a CT [...] done in 2023. This has been scheduled. 6 . F ormer smoker - Z87.891 N otes :He is determined to remain abstinent. He has a plan to deal with stress and illness. 7 . C oronary atherosclerosis due to calcified coronary lesion - I25.84 ? N otes :He had inferolateral changes on a recent stress test consistent with ischemia. A cardiac catheterization is going to be done at the end of January 17, 2024. I counseled him at length about not exceeding certain activity levels between now and then. Plan: * Treatment: 2. E ssential hypertension Continue Rosuvastatin Calcium Tablet, 10 MG, 1 tablet, Orally, Once a day; C ontinue Metoprolol Succinate ER Tablet Extended Release 24 Hour, 25 MG, 1 tablet, Orally, Once a day; C ontinue Lisinopril Tablet, 10 MG, TAKE 1 TABLET BY MOUTH EVERY DAY; C ontinue Aspirin Tablet Chewable, 81 MG, 1 tablet, Orally, Once a day. L AB: PROFILE, FASTING (COMPREHENSIVE METABOLIC) L AB: CBC w DIFF L AB: RETIC L AB: Lipid Panel L AB: Beta-2 Microglobulin, Serum 3. M ixed hyperlipidemia L AB: PROFILE, FASTING (COMPREHENSIVE METABOLIC) L AB: CBC w DIFF L AB: RETIC L AB: Lipid Panel L AB: Beta-2 Microglobulin, Serum 4. H emangioma of liver L AB: PROFILE, FASTING (COMPREHENSIVE METABOLIC) L AB: CBC w DIFF L AB: RETIC L AB: Lipid Panel L AB: Beta-2 Microglobulin, Serum * Labs: * L ab: URINE DIP STICK (Collection Date & Time - 08/21/2024) Value Reference Range S G 1.010 1.005 - 1.025 * p H 6.5 5.0 - 9.0 * L EU Negative Negative - * N IT Negative Negative - * P RO 15 Negative - Trace * G RUSSELL Negative Negative - * K ET 5 Negative - * U BG 0.2 0.1 - 1.8 * B IL Negative 0.2 - 1.3 * B LD Positive Negative - * Procedure Codes: 8 1002 URINE-NO MICRO * Preventive Medicine: Counseling: S moking/Tobacco Use Patient counseled on the dangers of tobacco use and urged to quit. 0 08/21/2024 * Follow Up: 3 Months (Reason: OV) * Images: * Sign off status: Completed true * Provider: Chris Smith MD Date: 0 08/21/2024 Generated for Susana wallis/Richard/eTransmitting on: 1 10:58 AM EDT History and Physical Notes * HPI (History of Present Illness) Category Sub-Category Detail Notes Depression Screening PHQ-9 Little inte rest or pleasure in doing things: Not at all Feeling down, depressed, or hopeless: No t at all Trouble falling or staying asleep, or sl eeping too much: Not at all Feeling tired or having little energy: N ot at all Poor appetite or overeating: Not at all Feeling bad about yourself o r that you are a failure, or have let yourself or your family down: Not at all Trouble concentrating on thi ngs, such as reading the newspaper or watching television: Not at all Moving or speaking so slowly that other people could have noticed; or the opposite, being so fidgety or restless that you have been moving around a lot more than usual: Not at all Thoughts that you would be b brisa off or of hurting yourself in some way: Not at all Total Score: 0 Fall Risk Screening Fall History Have you had any falls with injury in the past year?: No Have you had two or more falls in the year?: No Fall Risk Assessment:: No falls in the year COVID-19 Screening Questions Have you had any new onset fever, chills, cough, congestion, sore throat, shortness of breath, muscle aches?: No SDOH Questions SDOH Questions In the past year have you been worried about losing your housing?: No In the past year have you or any family members you live with been unable to get any of the following when it was really needed? Check all that apply:: None Examination Category Sub-Category Detail Notes General Examination [...] intact SKIN: no suspicious lesion s, anicteric, Mild eczema PERIPHERAL PULSES: normal BREASTS: no masses palpable b ilaterally MUSCULOSKELETAL: extremities unremark able, no clubbing, cyanosis or edema LYMPH NODES: no enlarged lymph no kiera,spleen normal RECTAL EXAM: not examined PSYCH: alert, oriented ORAL CAVITY: normal, unremarkable
--- OUTSIDE RECORDS SUMMARY | 2024-08-22 06:57 | XMS_ITS ---
Author Organization Hugo Smith III, MD Address [address] [place] [address] [place] [address] Care Team Providers Care Vehicle Body Builder Name Role Phone Dr. Hugo Smith III Primary Care Provider REASON FOR VISIT Needs referral Social History Sex Assigned At : Social History Observation Description Sex Assigned At Male Encounters Encounter Location Date Provider Diagnosis Hugo Smith III, MD [address] [place] [address] [place] [address] 08/22/2024 Hugo Smith Plan Of Treatment Next Appt Details Provider Name:Hugo Smith , 04/03/2025 10:30:00 AM, [address] [place] [address] [place], [address], Provider Name:Hugo Smith , 08/22/2025 09:30:00 AM, [address] [place] [address] [place], [address], Progress Notes * Henrique AMARODOB: 0 (73 yo M)Acc No.[id number]:08/22/2024 Patient: Henrique SOTELO :1950 A ge:73 Y S ex:Male Address:[address] [place] [address], [place], [address] * true * Date: Generated for Printi ng/Faxing/eTransmitting on: 1 10:57 AM EDT
--- OUTSIDE RECORDS SUMMARY | 2024-08-27 05:36 | XMS_ITS ---
Author Organization Hugo Smith III, MD Address [address] [place] [address] Care Team Providers Care Fast Food Crew Member Name Role Phone Dr. Hugo Smith III Primary Care Provider [phone] REASON FOR VISIT New Refill Request Social History Sex Assigned At : Social History Observation Description Sex Assigned At Male Encounters Encounter Location Date Provider Diagnosis Hugo Smith III, MD [address] [place] [address] [place] [address] 08/27/2024 Hugo Smith Plan Of Treatment Next Appt Details Provider Name:Hugo Smith , 04/03/2025 10:30:00 AM, [address] [place] [address] [place], [address], Provider Name:Hugo Smith , 08/22/2025 09:30:00 AM, [address] [place] [address] [place], [address], Progress Notes * Henrique AMARODOB: 0 (73 yo M)Acc No.[id number]:08/27/2024 Patient: Henrique SOTELO :1950 A ge:73 Y S ex:Male Address:[address] [place] [address], [place], [address] * true * Date: Generated for Printi ng/Faxing/eTransmitting on: 1 10:57 AM EDT
--- OUTSIDE RECORDS SUMMARY | 2024-08-27 05:36 | XMS_ITS ---
Author Organization Hugo Smith III, MD Address [address] [place] [address] [place] [address] Care Team Providers Care Take Away Attendant Name Role Phone Dr. Hugo Smith III Primary Care Provider REASON FOR VISIT New Refill Request Social History Sex Assigned At : Social History Observation Description Sex Assigned At Male Encounters Encounter Location Date Provider Diagnosis Hugo Smith III, MD [address] [place] [address] [place] [address] 08/27/2024 Hugo Smith Plan Of Treatment Next Appt Details Provider Name:Hugo Smith , 04/03/2025 10:30:00 AM, [address] [place] [address] [place], [address], Provider Name:Hugo Smith , 08/22/2025 09:30:00 AM, [address] [place] [address] [place], [address], Progress Notes * Henrique AMARODOB: 0 (73 yo M)Acc No.[id number]:08/27/2024 Patient: Henrique SOTELO :1950 A ge:73 Y S ex:Male Address:[address] [place] [address], [place], [address] * true * Date: Generated for Printi ng/Faxing/eTransmitting on: 1 10:58 AM EDT
--- OUTSIDE RECORDS SUMMARY | 2024-11-21 05:15 | XMS_ITS ---
Author Organization Hugo Smith III, MD Address [address] [place] [address] [place] [address] Care Team Providers Care Hotel Associate Name Role Phone Dr. Hugo Smith III Primary Care Provider [phone] Allergies Allergen (clinical drug ingredient) Drug/Non Drug Allergy documented on EMR Reaction Allergy Type Onset Date Status No Known Drug Allergy Unknown Drug Allergy Active No Known Food Allergy Unknown Drug Allergy Active Reason For Referral Reason evaluate and treatme nt appointment needed with Dr Callahan CLL with new Thrombocytopenia never treated Diagnosis 1 Chronic lymphocytic leukemia (C91.10) Referral Organization Hugo Smith III, MD Referring Provider First Name Hugo Referring Provider Last Name Luis Referring Provider Speciality Internal M edicine Referred Provider SANTOS CALLAHAN Referred Provider Specialty Hematology/O ncology General Notes BayronVero CMA 11/21 02:17:24 PM > ref/progress notes/pathology faxed to [facility] asking for appt with Dr Callahan per patient request, [facility] 11/22/2024 11:33:04 AM >I called [facility] at [phone] spoke to Jessica she has all the information she needs now she will message Dr Callahan to get appt and then call me back with appt information . patient made aware of this, BayronVero CMA 11/28/2024 09:52:06 AM > I called Dr Callahan office spoke to Kael patient was given appt with Dr Callahan for Wednesday12/06/2024 at [address]pm [address] front entrance on 2nd floor [facility] [phone] pt called and mailed this appt information Referral Priority Routine Referral Appointment Date 12/06/2024 REASON FOR VISIT CLL/SLL, Hypertension, Hyperlipidemia, Former smoker, Coronary artery disease, Benign prostatic hypertrophy Medications [...] TABLET BY SEJAL TH EVERY DAY Active Social History Tobacco Use: Social History Observation Description Date Details (start date - stop date) Former Smoker NA - NA Sex Assigned At : Social History Observation Description Sex Assigned At Male Tobacco Control (Standard) Question Answer Notes Tobacco use: Former smoker How long has it been since you last smoked? Hugh ter than 10 years Additional Findings: Tobacco non-user Ex-cigaret te smoker Vital Signs Temperature 97.9 degrees Fahrenheit 11/22/19 25 Blood pressure systolic 136 mm Hg 11/22/19 25 Blood pressure diastolic 74 mm Hg 025 Heart Rate 44 /min 11/21/2024 Height 70 in 11/21/2024 Weight 152 lbs 11/21/2024 BMI 21.81 kg/m2 11/21/2024 Encounters Encounter Location Date Provider Diagnosis Hugo Smith III, MD [address] [place] [address] [facility] [place] [address] 11/21/2024 Hugo Smith Essential hypertensi on I10 ; Chronic lymphocytic leukemia C91.10 ; Mixed hyperlipidemia E78.2 ; BPH (benign prostatic hyperplasia) N40.0 ; Actinic keratosis L57.0 ; Retinal tear of right eye H33.311 ; Coronary atherosclerosis due to calcified coronary lesion I25.84 ; Hemangioma of liver D18.03 ; Left upper lobe pulmonary nodule R91.1 and Former smoker Z87.891 Assessments Encounter Date Diagnosis (ICD Code) Assessment Notes T reatment Notes Treatment Clinical Notes 11/21/2024 Essential hypertension (ICD-10 - I10) His blood pressure is currently stable. The patient would like to have his systolic pressure closer to 125. We will try to attain this goal is in the near future. 11/21/2024 Chronic lymphocytic leukemia (ICD-10 - C91.10) His flow cytometry was consistent with CLL/SLL. He has pursued an extremely indolent course. After 6 years he has now developed mild thrombocytopenia and there is one nucleated red blood cell present on his differential. It is likely he needs reevaluation of the disease process, bone marrow examination and treatment in the near future. At his request he is being referred to the [facility] cancer [facility] to Dr. Callahan. Records are being sent. 11/21/2024 Mixed hyperlipidemia (ICD-10 - E78.2) His lipids are currently stable and no change in his regimen is necessary today. 11/21/2024 BPH (benign prostati c hyperplasia) (ICD-10 - N40.0) He rises at most once a night to urinate. There are lifestyle modifications he could take to reduce this further if needed. 11/21/2024 Actinic keratosis (ICD-10 - L57.0) He will see the chocolate temperer periodically. 11/21/2024 Retinal tear of righ t eye (ICD-10 - H33.311) This has been corrected in his vision has been stable lately. 11/21/2024 Coronary atherosclerosis due to calcified coronary lesion (ICD-10 - I25.84) He had inferolateral changes on a recent stress test consistent with ischemia. A cardiac catheterization is going to be done at the end of January 17, 2024. I counseled him at length about not exceeding certain activity levels between now and then. 11/21/2024 Hemangioma of liver (ICD-10 - D18.03) This was a finding on imaging and will be observed. 11/21/2024 Left upper lobe pulmonary nodule (ICD-10 - [...] scan. A CT scan of the chest done in 2023 showed no change in the left upper lobe nodules 11/21/2024 Former smoker (ICD-1 0 - Z87.891) He is determined to remain abstinent. He has a plan to deal with stress and illness. Plan Of Treatment Medication Medication Name Sig Start Date Stop Date Notes Rosuvastatin Calcium 10 MG 1 tablet Orally Once a day Metoprolol Succinate ER 25 MG 1 tablet Orally Once a day Aspirin 81 MG 1 tablet Orally Once a day Lisinopril 10 MG TAKE 1 TABLET BY SEJAL TH EVERY DAY Pending Test Test Name Order Date PROFILE, FASTING (COMPREHENSIVE METABOLI C) 11/21/2024 PSA, TOTAL 11/21/2024 CBC w DIFF 11/21/2024 Lipid Panel 11/21/2024 Referrals Referral Date Details 11/21/2024 11/21/2024, evaluate and treatment appointment needed with Dr Callahan CLL with new Thrombocytopenia never treated, SANTOS CALLAHAN Next Appt Details Follow Up: 3 Months, Reason: ov review labs Provider Name:Hugo Smith , 04/03/2025 10:30:00 AM, [address] [place] [address] EMELI KELLER, [place], [phone], Provider Name:Hugo Smith , 08/22/2025 09:30:00 AM, [address] [place] [address] EMELI KELLER, [place], [phone], Progress Notes * Henrique AMARODOB: 0 (74 yo M)Acc No.[id number]:11/21/2024 Progress Notes Patient: Henrique SOTELO Provider: Chris Smith MD :1950 A ge:74 Y S ex:Male Date:11/21/2024 Address:[address] [place], [place] [id number] Subjective: * Chief Complaints: * C LL/SLLHypertensionHyperlipidemiaFormer smokerCoronary artery diseaseBenign prostatic hypertrophy * HPI: C OVID-19 Screening: This patient returns for medical management. He presented in August of 2018 With a slightly high white blood cell count and lymphocytosis. Flow cytometry done at that time showed a clonal B-cell population with the immune no phenotype of chronic lymphocytic leukemia/small lymphocytic lymphoma. It was CD5 positive. He had no other hematological abnormalities. He has been followed for 6 years and remained stable.His current white blood cell count was 13,200 with 70% lymphocytes, hematocrit 41.4 with a platelet count of 102,000. His platelet count was normal. Year ago and has been gradually declining to its current level. He has had no bleeding.? His differential currently shows one nucleated red blood cell which is a new finding. His beta-2 microglobulin is in the normal range. Bone marrow examination has not been done. Flow cytometry is consistent with CLL. He has pursued a very indolent course and is now being referred to hematology to to the thrombocytopenia, which is likely an autoimmune process. He will likely need a full evaluation and treatment in the near future. His vision is unchanged. He saw his occupational health coordinator, Dr. Dominguez, last month and is up-to-date with cardiology. It is a benign cyst was recently removed from the middle of his back. He is stable at this time. Questions H ave you had any new [...] left 12/2016colonoscopy, negative findings 2002colonoscopy, Dr. Briggs, [facility], one inflammatory polyp 2013right shoulder rotor cuff surergy 08/2019left great big toe bone spur/ arthritis ardiac catheterization [facility] 60% occlusion circumflex branch Januaryyst surgically [...] dditional Findings: Tobacco non-user E x-cigarette smoker Diane gtz was born in [place], [place]. He has been to Keavy for 35 years. They have a step child, Harsha. He has no grandchildren. He is retired from [employer], and has no exposures to toxic materials. He is not a Zoroastrianism. * Medications: T akingRosuvastatin Calcium 10 MG Tablet 1 tablet Orally Once a day Metoprolol Succinate ER 25 MG Tablet Extended Release 24 Hour 1 tablet Orally Once a day Aspirin 81 MG Tablet Chewable 1 tablet Orally Once a day Lisinopril 10 MG Tablet TAKE 1 TABLET BY MOUTH EVERY DAY Medication List reviewed and reconciled with the patientTaking Rosuvastatin Calcium 10 MG Tablet 1 tablet Orally Once a day Taking Metoprolol Succinate ER 25 MG Tablet Extended Release 24 Hour 1 tablet Orally Once a day Taking Aspirin 81 MG Tablet Chewable 1 tablet Orally Once a day Taking Lisinopril 10 MG Tablet TAKE 1 TABLET BY MOUTH EVERY DAY Medication List reviewed and reconciled with the patient * Allergies: N o Known Drug AllergyNo Known Food Allergyno[Allergies Verified] Objective: * Vitals: H t: 70, Wt:152, BMI:21.81, BP:136/74, HR:44, Temp:97.9, Ht-cm: 177.8, Wt-k.95. * P ast Orders: Lab:URINE DIP STICK * Collection Date 08/21/2024 08/17/2023 08/11/2022 Order Date 08/21/2024 08/17/2023 08/11/2022 SG 1.010 (Ref Range: 1.005 - 1.025) 1.015 (Ref Range: 1.005 - 1.025) 1.010 (Ref Range: 1.005 - 1.025) pH 6.5 (Ref Range: 5.0 - 9.0) 7.5 (Ref Range: 5.0 - 9.0) 8.0 (Ref Range: 5.0 - 9.0) BETO Negative (Ref Range: Negative -) Negative (Ref Range: Negative -) Negative (Ref Range: Negative -) NIT Negative (Ref Range: Negative -) Negative (Ref Range: Negative -) Negative (Ref Range: Negative -) PRO 15 (Ref Range: Negative - Trace) 15 (Ref Range: Negative - Trace) 15 (Ref Range: Negative - Trace) GLU Negative (Ref Range: Negative -) Negative (Ref Range: Negative -) Negative (Ref Range: Negative -) KET 5 (Ref Range: Negative -) Negative (Ref Range: Negative -) Negative (Ref Range: Negative -) UBG 0.2 (Ref Range: 0.1 - 1.8) 0.2 (Ref Range: 0.1 - 1.8) 0.2 (Ref Range: 0.1 - 1.8) ANJU Negative (Ref Range: 0.2 - 1.3) Negative (Ref Range: 0.2 - 1.3) Negative (Ref Range: 0.2 - 1.3) BLD Positive (Ref Range: Negative -) Positive (Ref Range: Negative -) 50 (Ref Range: Negative -) Menstrating NR NR N/A * Lab:Lipid Panel * Collection Date 11/15/2024 08/17/2024 05/24/2024 Collection Time 10:30 AM 10:55 AM 10:10 AM Order Date 11/15/2024 08/17/2024 05/24/2024 Triglycerides 125 (Ref Range: <150 mg/dL) 71 (Ref Range: <150 mg/dL) 114 (Ref Range: <150 mg/dL) Cholesterol 141 (Ref Range: <200 mg/dL) 125 (Ref Range: <200 mg/dL) 151 (Ref Range: <200 mg/dL) LDL Cholesterol Calculated 59 (Ref Range: <100 mg/dL) 56 (Ref Range: <100 mg/dL) 76 (Ref Range: <100 mg/dL) HDL Cholesterol 57 (Ref Range: >40 mg/dL) 55 (Ref Range: >40 mg/dL) 53 (Ref Range: >40 mg/dL) * Lab:Beta-2 Microglobulin, Se rum * Collection Date 11/15/2024 08/11/2023 Collection Time 10:30 AM 11:26 AM Order Date 11/15/2024 08/11/2023 Beta-2 Microglobulin, Serum 2.30 (Ref Range: < OR = 2.51 mg/L) 2.20 (Ref Range: < OR = 2.51 mg/L) * Lab:SLIDE REVIEW * Collection Date 11/15/2024 08/17/2024 05/24/2024 Collection Time 10:30 AM 10:55 AM 10:10 AM Order Date 11/15/2024 08/17/2024 05/24/2024 SLIDE REVIEW VERIFIED VERIFIED VERIFIED * Lab:Complete Blood Count Aut o Diff * Collection Date 11/15/2024 08/17/2024 05/24/2024 Collection Time 10:30 AM 10:55 AM 10:10 AM Order Date 11/15/2024 08/17/2024 05/24/2024 White Blood Count 13.2 H (Ref Range: 4.8-10.8 X10*3/uL) 11.4 H (Ref Range: 4.8-10.8 X10*3/uL) 13.0 H (Ref Range: 4.8-10.8 X10*3/uL) Red Blood Count 4.36 L (Ref Range: 4.60-5.80 X10*6/uL) 4.29 L (Ref Range: 4.60-5.80 X10*6/uL) 4.37 L (Ref Range: 4.60-5.80 X10*6/uL) Hemoglobin 13.6 L (Ref Range: 14.0-18.0 g/dl) 13.2 L (Ref Range: 14.0-18.0 g/dl) 13.6 L (Ref Range: 14.0-18.0 g/dl) Hematocrit 41.4 L (Ref Range: 42.0-52.0 %) 40.4 L (Ref Range: 42.0-52.0 %) 40.8 L (Ref Range: 42.0-52.0 %) Mean Corpuscular Volume 95.0 (Ref Range: 80.0-98.0 fL) 94.2 (Ref Range: 80.0-98.0 fL) 93.4 (Ref Range: 80.0-98.0 fL) Mean Corpuscular Hemoglobin 31.2 (Ref Range: 27.0-33.0 pg) 30.8 (Ref Range: 27.0-33.0 pg) 31.1 (Ref Range: 27.0-33.0 pg) Mean Corpuscular HGB Conc 32.9 (Ref Range: 31.0-36.0 g/dl) 32.7 (Ref Range: 31.0-36.0 g/dl) 33.3 (Ref Range: 31.0-36.0 g/dl) Red Cell Distribution Width 12.8 (Ref Range: 11.0-16.0 %) 12.4 (Ref Range: 11.0-16.0 %) 12.4 (Ref Range: 11.0-16.0 %) Platelet Count 112 L (Ref Range: 160-400 X10*3/uL) 131 L (Ref Range: 160-400 X10*3/uL) 137 L (Ref Range: 160-400 X10*3/uL) Mean Platelet Volume 12.1 (Ref Range: 9.4-12.4 fL) 11.8 (Ref Range: 9.4-12.4 fL) 10.9 (Ref Range: 9.4-12.4 fL) Neutrophils Percent Auto 23.5 L (Ref Range: 45-73 %) 19.5 L (Ref Range: 45-73 %) 24.4 L (Ref Range: 45-73 %) Imm Gran Pct Auto 0.2 (Ref Range: 0.0-0.4 %) 0.2 (Ref Range: 0.0-0.4 %) 0.2 (Ref Range: 0.0-0.4 %) Lymphocytes Percent Auto 70.2 H (Ref Range: 20-40 %) 73.1 H (Ref Range: 20-40 %) 68.5 H (Ref Range: 20-40 %) Monocytes Percent Auto 4.9 (Ref Range: 2-11 %) 5.3 (Ref Range: 2-11 %) 4.9 (Ref Range: 2-11 %) Eosinophils Percent Auto 0.8 (Ref Range: 0-4 %) 1.4 (Ref Range: 0-4 %) 1.5 (Ref Range: 0-4 %) Basophils Percent Auto 0.4 (Ref Range: 0-2 %) 0.5 (Ref Range: 0-2 %) 0.5 (Ref Range: 0-2 %) NRBC Pct Auto 0.2 (Ref Range: 0.0-0.2 /100WBC) 0.0 (Ref Range: 0.0-0.2 /100WBC) 0.0 (Ref Range: 0.0-0.2 /100WBC) Neutrophils Absolute Auto 3.1 (Ref Range: 2.0-8.3 x10*3/uL) 2.2 (Ref Range: 2.0-8.3 x10*3/uL) 3.2 (Ref Range: 2.0-8.3 x10*3/uL) Imm Gran Abs Auto 0.02 (Ref Range: 0.00-0.03 X10*3/uL) 0.02 (Ref Range: 0.00-0.03 X10*3/uL) 0.02 (Ref Range: 0.00-0.03 X10*3/uL) Lymphocytes Absolute Auto 9.3 H (Ref Range: 1.2-4.9 X10*3/uL) 8.3 H (Ref Range: 1.2-4.9 X10*3/uL) 8.9 H (Ref Range: 1.2-4.9 X10*3/uL) Monocytes Absolute Auto 0.6 (Ref Range: 0.1-1.2 X10*3/uL) 0.6 (Ref Range: 0.1-1.2 X10*3/uL) 0.6 (Ref Range: 0.1-1.2 X10*3/uL) Eosinophils Absolute Auto 0.1 (Ref Range: 0.0-0.4 X10*3/uL) 0.2 (Ref Range: 0.0-0.4 X10*3/uL) 0.2 (Ref Range: 0.0-0.4 X10*3/uL) Basophils Absolute Auto 0.1 (Ref Range: 0.0-0.2 X10*3/uL) 0.1 (Ref Range: 0.0-0.2 X10*3/uL) 0.1 (Ref Range: 0.0-0.2 X10*3/uL) NRBC Abs Auto 0.020 H (Ref Range: 0.0-0.012 X10*3/uL) 0.000 (Ref Range: 0.0-0.012 X10*3/uL) 0.000 (Ref Range: 0.0-0.012 X10*3/uL) ???Lab:RETIC (Order Date - 11/15/2024) (Collection Date & Time - 11/15/2024 10:30 AM)?ValueReference Range?Reticulocytes Absolute0.0550.026- 0.095 - X10*6/uL?Immature Retic Fraction9.02.3-13.4 - %?Retic HGB Nloufffpxt57.7H30.0-35.0 - pg?Reticulocyte Percent1.30.5-1.8 - % * Lab:Isabel Paez * Collection Date 11/15/2024 08/17/2024 05/24/2024 Collection Time 10:30 AM 10:55 AM 10:10 AM Order Date 11/15/2024 08/17/2024 05/24/2024 Sodium 143 (Ref Range: 135-145 mmol/L) 140 (Ref Range: 135-145 mmol/L) 139 (Ref Range: 135-145 mmol/L) Bilirubin Total 0.7 (Ref Range: 0.0-1.0 mg/dL) 0.5 (Ref Range: 0.0-1.0 mg/dL) 0.6 (Ref Range: 0.0-1.0 mg/dL) Aspartate Amino Transferase 51 H (Ref Range: 5-37 U/L) 43 H (Ref Range: 5-37 U/L) 42 H (Ref Range: 5-37 U/L) Alanine Aminotransferase 64 H (Ref Range: 0-40 U/L) 44 H (Ref Range: 0-40 U/L) 47 H (Ref Range: 0-40 U/L) Total Protein 6.9 (Ref Range: 6.5-8.0 g/dL) 6.3 L (Ref Range: 6.5-8.0 g/dL) 7.4 (Ref Range: 6.5-8.0 g/dL) Albumin Level 4.3 (Ref Range: 3.5-5.0 g/dL) 3.9 (Ref Range: 3.5-5.0 g/dL) 4.4 (Ref Range: 3.5-5.0 g/dL) Alkaline Phosphatase 48 (Ref Range: 39-117 U/L) 48 (Ref Range: 39-117 U/L) 47 (Ref Range: 39-117 U/L) Potassium 4.9 (Ref Range: 3.3-5.1 mmol/L) 4.5 (Ref Range: 3.3-5.1 mmol/L) 5.1 (Ref Range: 3.3-5.1 mmol/L) Chloride 109 H (Ref Range: 96-108 mmol/L) 108 (Ref Range: 96-108 mmol/L) 108 (Ref Range: 96-108 mmol/L) Carbon Dioxide 29 (Ref Range: 22-29 mmol/L) 27 (Ref Range: 22-29 mmol/L) 27 (Ref Range: 22-29 mmol/L) Anion Gap 10 L (Ref Range: 12-20) 10 L (Ref Range: 12-20) 9 L (Ref Range: 12-20) Blood Urea Nitrogen 18 H (Ref Range: 9-16 mg/dL) 21 H (Ref Range: 9-16 mg/dL) 16 (Ref Range: 9-16 mg/dL) Creatinine 1.18 (Ref Range: 0.5-1.4 mg/dL) 1.14 (Ref Range: 0.5-1.4 mg/dL) 1.13 (Ref Range: 0.5-1.4 mg/dL) Estimated Glomerular Filt Rate > 60 > 60 > 60 Glucose Fasting 95 (Ref Range: 60-99 mg/dL) 93 (Ref Range: 60-99 mg/dL) 96 (Ref Range: 60-99 mg/dL) Calcium 9.5 (Ref Range: 8.4-10.2 mg/dL) 9.2 (Ref Range: 8.4-10.2 mg/dL) 9.1 (Ref Range: 8.4-10.2 mg/dL) * Examination: G eneral Examination: GENERAL APPEARANCE: p leasant, well nourished, well developed, in no acute distress, calm and relaxed: man. HEAD: a traumatic, normocephalic. EYES: e nam, perrla, anicteric, conjugate. EARS: n ormal. NOSE: s eptum intact. ORAL CAVITY: n ormal, unremarkable. NECK/THYROID: n o jugular venous distention, no carotid bruit, thyroid normal. LYMPH NODES: n o enlarged lymph nodes,spleen normal. SKIN: n o suspicious lesions, anicteric, Recent excision scar mid thoracic spine, old excision scar upper right back. HEART: n o clicks, gallops, murmurs, or [...] leukemia - C91.10 (Primary) N otes :His flow cytometry was consistent with CLL/SLL. He has pursued an extremely indolent course. After 6 years he has now developed mild thrombocytopenia and there is one nucleated red blood cell present on his differential. It is likely he needs reevaluation of the disease process, bone marrow examination and treatment in the near future. At his request he is being referred to the [facility] cancer [facility] to Dr. Callahan. Records are being sent. 2 . E ssential hypertension - I10 N otes :His blood pressure is currently stable. The patient would like to have his systolic pressure closer to 125. We will try to attain this goal is in the near future. 3 . M ixed hyperlipidemia - E78.2 N otes :His lipids are currently stable and no change in his regimen is necessary today. 4 . B PH (benign prostatic hyperplasia) - N40.0 N otes :He rises at most once a night to urinate. There are lifestyle modifications he could take to reduce this further if needed. 5 . A ctinic keratosis - L57.0 N otes :He will see the chocolate temperer periodically. 6 . R etinal tear of right eye - H33.311 N otes :This has been corrected in his vision has been stable lately. 7 . C oronary atherosclerosis due to calcified coronary lesion - I25.84 ? N otes :He had inferolateral changes on a recent stress test consistent with ischemia. A cardiac catheterization is going to be done at the end of January 17, 2024. I counseled him at length about not exceeding certain activity levels between now and then. 8 . H emangioma of liver - D18.03 N otes :This was a finding on imaging and will be observed. 9 . L eft upper lobe pulmonary nodule [...] scan. A CT scan of the chest done in 2023 showed no change in the left upper lobe nodules 1 0. F ormer smoker - Z87.891 N otes :He is determined to remain abstinent. He has a plan to deal with stress and illness. Plan: * Treatment: 2. E ssential hypertension Continue Lisinopril Tablet, 10 MG, TAKE 1 TABLET BY MOUTH EVERY DAY; C ontinue Rosuvastatin Calcium Tablet, 10 MG, 1 tablet, Orally, Once a day; C ontinue Metoprolol Succinate ER Tablet Extended Release 24 Hour, 25 MG, 1 tablet, Orally, Once a day; C ontinue Aspirin Tablet Chewable, 81 MG, 1 tablet, Orally, Once a day. L AB: PROFILE, FASTING (COMPREHENSIVE METABOLIC) L AB: PSA, TOTAL L AB: CBC w DIFF L AB: Lipid Panel 3. M ixed hyperlipidemia L AB: PROFILE, FASTING (COMPREHENSIVE METABOLIC) L AB: PSA, TOTAL L AB: CBC w DIFF L AB: Lipid Panel 4. B PH (benign prostatic hyperplasia) L AB: PROFILE, FASTING (COMPREHENSIVE METABOLIC) L AB: PSA, TOTAL L AB: CBC w DIFF L AB: Lipid Panel * Procedure Codes: * Preventive Medicine: Counseling: S moking/Tobacco Use Patient counseled on the dangers of tobacco use and urged to quit. 0 11/21/2024 * Follow Up: 3 Months (Reason: ov review labs) * Images: * Sign off status: Completed true * Provider: Chris Smith MD Date: 0 11/21/2024 Generated for Susana wallis/Richard/Niiitting on: 1 10:57 AM EDT History and Physical Notes * HPI (History of Present Illness) Category Sub-Category Detail Notes COVID-19 Screening Questions Have you had any new onset fever, chills, cough, congestion, sore throat, shortness of breath, muscle aches?: No Examination Category Sub-Category Detail Notes General Examination GENERAL APPEARANCE: pleasant , well nourished, well developed, in no acute distress, calm and relaxed: man HEAD: atraumatic, normocep halic EYES: eomi, [...] intact SKIN: no suspicious lesion s, anicteric, Recent excision scar mid thoracic spine, old excision scar upper right back PERIPHERAL PULSES: normal BREASTS: no masses palpable b ilaterally MUSCULOSKELETAL: extremities unremark able, no clubbing, cyanosis or edema LYMPH NODES: no enlarged lymph no kiera,spleen normal RECTAL EXAM: not examined PSYCH: alert, oriented ORAL CAVITY: normal, unremarkable Consultation Request Notes Referral Date Referring Provider Referred Provider Not 11/21/2024 Hugo Smith CHANDRAVATHI evaluate and treatment appointment needed with Dr Callahan CLL with new Thrombocytopenia never treated
--- OUTSIDE RECORDS SUMMARY | 2024-11-28 07:00 | XMS_ITS ---
Author Organization Hugo Smith III, MD Address [address] [place] [address] [place] [address] Care Team Providers Care Architecture Manager Name Role Phone Dr. Hugo Smith III Primary Care Provider Allergies Allergen (clinical drug ingredient) Drug/Non Drug Allergy documented on EMR Reaction Allergy Type Onset Date Status No Known Drug Allergy Unknown Drug Allergy Active No Known Food Allergy Unknown Drug Allergy Active REASON FOR VISIT Hypertension, Chronic lymphocytic leukemia, Thrombocytopenia, Benign prostatic hypertrophy, Hyperlipidemia Medications Medication SIG (Take, Route, Frequency, Duration) Notes Start Date End Date Status Metoprolol Succinate ER 25 MG 1 tablet Orally Once a day Active Rosuvastatin Calcium 10 MG 1 tablet Oral ly Once a day Active Aspirin 81 MG [...] non-user Ex-cigaret te smoker Vital Signs Temperature 97.5 degrees Fahrenheit 11/29/19 25 Blood pressure systolic 139 mm Hg 11/29/19 25 Blood pressure diastolic 75 mm Hg 025 Heart Rate 53 /min 11/28/2024 Height 70 in 11/28/2024 Weight 153 lbs 11/28/2024 BMI 21.95 kg/m2 11/28/2024 Encounters Encounter Location Date Provider Diagnosis Hugo Smith III, MD [address] [place] [address] DR [place], [place] [phone] 11/28/2024 Hugo Smith Essential hypertensi on I10 ; Former smoker Z87.891 ; Mixed hyperlipidemia E78.2 ; Acne rosacea L71.9 ; Chronic lymphocytic leukemia C91.10 ; Coronary atherosclerosis due to calcified coronary lesion I25.84 ; BPH (benign prostatic hyperplasia) N40.0 ; Hemangioma of liver D18.03 and Left upper lobe pulmonary nodule R91.1 Assessments Encounter Date Diagnosis (ICD Code) Assessment Notes T reatment Notes Treatment Clinical Notes 11/28/2024 Essential hypertension (ICD-10 - I10) His blood pressure is currently stable. The patient would like to have his systolic pressure closer to 125. We will try to attain this goal is in the near future. 11/28/2024 Former smoker (ICD-1 0 - Z87.891) He is determined to remain abstinent. He has a plan to deal with stress and illness. 11/28/2024 Mixed hyperlipidemia (ICD-10 - E78.2) His lipids are currently stable and no change in his regimen is necessary today. 11/28/2024 Acne rosacea (ICD-10 - L71.9) The acne is very mild and no additional treatment is necessary. 11/28/2024 Chronic lymphocytic leukemia (ICD-10 - C91.10) His [...] request he is being referred to the [facility] cancer Center to Dr. Chapman. Records are being sent. 11/28/2024 Coronary atherosclerosis due to calcified coronary lesion (ICD-10 - I25.84) He had inferolateral changes on a recent stress test consistent with ischemia. A cardiac catheterization is going to be done at the end of January 17, 2024. I counseled him at length about not exceeding certain activity levels between now and then. 11/28/2024 BPH (benign prostati c hyperplasia) (ICD-10 - N40.0) He rises at most once a night to urinate. There are lifestyle modifications he could take to reduce this further if needed. 11/28/2024 Hemangioma of liver (ICD-10 - D18.03) This was a finding on imaging and will be observed. 11/28/2024 Left upper lobe pulmonary nodule (ICD-10 - [...] change in the left upper lobe nodules Plan Of Treatment Medication Medication Name Sig Start Date Stop Date Notes Metoprolol Succinate ER 25 MG 1 tablet Orally Once a day Rosuvastatin Calcium 10 MG 1 tablet Orally Once a day Aspirin 81 MG 1 tablet Orally Once a day Lisinopril 10 MG TAKE 1 TABLET BY SEJAL TH EVERY DAY Next Appt Details Provider Name:Hugo Smith , 04/03/2025 10:30:00 AM, [address] [place] [address] [address], [place], [address], Provider Name:Hugo Smith , 08/22/2025 09:30:00 AM, [address] [place] [address] [address], [place], [phone], Progress Notes * Henrique AMARODOB: 0 (74 yo M)Acc No.[id number]:11/28/2024 Progress Notes Patient: Henrique SOTELO Provider: Chris Smith MD :1950 A ge:74 Y S ex:Male Date:11/28/2024 Address:[address] [place] [id number] Subjective: * Chief Complaints: * H ypertensionChronic lymphocytic leukemiaThrombocytopeniaBenign prostatic hypertrophyHyperlipidemia * HPI: C OVID-19 Screening: He returns for a blood pressure check. He brought his home equipment and compared with my office electronic equipment as well as the mercury column device that is used in the examining room. All 3 were within 5 mmHg. His blood pressure todayWas 139/75. The lisinopril was continued. He is going to see about the CLL related to thrombocytopenia and the near future. He has had no bleeding. Questions H ave you had any new [...] left 12/2016colonoscopy, negative findings 2002colonoscopy, Dr. Briggs, [facility], one inflammatory polyp 2013right shoulder rotor cuff surergy 08/2019left great big toe bone spur/ arthritis ardiac catheterization [facility] 60% occlusion circumflex branch Januaryyst surgically [...] x-cigarette smoker Diane gtz was born in [place], [place]. He has been to [place] for 35 years. They have a step child, Harsha. He has no grandchildren. He is [place] [employer], and has no exposures to toxic materials. He is not a Yarsanism. * Medications: T akingLisinopril 10 MG Tablet TAKE 1 TABLET BY MOUTH EVERY DAY Rosuvastatin Calcium 10 MG Tablet 1 tablet Orally Once a day Metoprolol Succinate ER 25 MG Tablet Extended Release 24 Hour 1 tablet Orally Once a day Aspirin 81 MG Tablet Chewable 1 tablet Orally Once a day Medication List reviewed and reconciled with the patientTaking Lisinopril 10 MG Tablet TAKE 1 TABLET BY MOUTH EVERY DAY Taking Rosuvastatin Calcium 10 MG Tablet 1 [...] * Vitals: H t: 70, Wt:153, BMI:21.95, BP:139/75, HR:53, Temp:97.5, Ht-cm: 177.8, Wt-k.4. * P ast Orders: Lab:Lipid Panel * Collection Date 11/15/2024 08/17/2024 [...] mg/dL) 53 (Ref Range: >40 mg/dL) * Lab:[facility] [place]. Pane l Fast * Collection Date 11/15/2024 08/17/2024 05/24/2024 Collection [...] 8.4-10.2 mg/dL) 9.1 (Ref Range: 8.4-10.2 mg/dL) ???Lab:RETIC (Order Date - 11/15/2024) (Collection Date & Time - 11/15/2024 10:30 AM)?ValueReference Range?Reticulocytes Absolute0.0550.026- 0.095 - X10*6/uL?Immature Retic Fraction9.02.3-13.4 - %?Retic HGB Ajwladgrms12.7H30.0-35.0 - pg?Reticulocyte Percent1.30.5-1.8 - % * Lab:Complete Blood Count Aut o Diff [...] X10*3/uL) 0.000 (Ref Range: 0.0-0.012 X10*3/uL) * Lab:SLIDE REVIEW * Collection Date 11/15/2024 08/17/2024 05/24/2024 Collection Time 10:30 AM 10:55 AM 10:10 AM Order Date 11/15/2024 08/17/2024 05/24/2024 SLIDE REVIEW VERIFIED VERIFIED VERIFIED * Lab:Beta-2 Microglobulin, Se rum * Collection Date 11/15/2024 08/11/2023 Collection Time 10:30 AM 11:26 AM Order Date 11/15/2024 08/11/2023 Beta-2 Microglobulin, Serum 2.30 (Ref Range: < OR = 2.51 mg/L) 2.20 (Ref Range: < OR = 2.51 mg/L) * Examination: G eneral Examination: GENERAL APPEARANCE: [...] nodes,spleen normal. SKIN: n o suspicious lesions, anicteric. HEART: n o clicks, gallops, murmurs, or [...] a lert, oriented. Assessment: * Assessment: 1. E ssential hypertension - I10 (Primary) N otes :His blood pressure is currently stable. The patient would like to have his systolic pressure closer to 125. We will try to attain this goal is in the near future. 2 . F ormer smoker - Z87.891 N otes :He is determined to remain abstinent. He has a plan to deal with stress and illness. 3 . M ixed hyperlipidemia - E78.2 N otes :His lipids are currently stable and no change in his regimen is necessary today. 4 . A cne rosacea - L71.9 N otes :The acne is very mild and no additional treatment is necessary. 5 . C hronic lymphocytic leukemia - C91.10 N otes :His flow cytometry was consistent [...] request he is being referred to the [facility] cancer Center to Dr. Chapman. Records are being sent. 6 . C oronary atherosclerosis due to calcified coronary lesion - I25.84 ? N otes :He had inferolateral changes on a recent stress test consistent with ischemia. A cardiac catheterization is going to be done at the end of January 17, 2024. I counseled him at length about not exceeding certain activity levels between now and then. 7 . B PH (benign prostatic hyperplasia) - N40.0 N otes :He rises at most once a night to urinate. There are lifestyle modifications he could take to reduce this further if needed. 8 . H emangioma of liver - [...] change in the left upper lobe nodules Plan: * Treatment: * Procedure Codes: * Preventive Medicine: Counseling: C are goal follow-up plan: Counseling for abnormal BMI given Y es Below Normal BMI Follow-up D ietary education for weight gain, Dietary management education, guidance, and counseling, Feeding regime, Lifestyle education regarding diet, Nutrition / feeding management, Prescribed diet education, Special diet education, Intervention, Order not done: Medical or Other reason not done S moking/Tobacco Use Patient counseled on the dangers of tobacco use and urged to quit. 0 11/28/2024 * Images: * Sign off status: Completed true * Provider: Chris Smith MD Date: 0 11/28/2024 Generated for Patriciai bimal/Richard/eTransmitting on: 1 10:58 AM EDT History and [...]
--- OUTSIDE RECORDS SUMMARY | 2025-01-09 05:30 | XMS_ITS ---
Author Organization Hugo Smith III, MD Address [address] [place] [address] Care Team Providers Care Chief Engineering Division Name Role Phone Dr. Hugo Smith III Primary Care Provider Allergies Allergen (clinical drug ingredient) Drug/Non Drug Allergy documented on EMR Reaction Allergy Type Onset Date Status No Known Drug Allergy Unknown Drug Allergy Active No Known Food Allergy Unknown Drug Allergy Active REASON FOR VISIT Chronic lymphocytic leukemia, Hypertension, Benign prostatic hypertrophy, Coronary artery disease Medications Medication SIG (Take, Route, Frequency, Duration) Notes Start Date End Date Status Lisinopril 10 MG TAKE 1 TABLET BY SEJAL EVERY DAY Active Aspirin 81 MG 1 [...] smoker Vital Signs Temperature 97.5 degrees Fahrenheit 01/10/20 25 Blood pressure systolic 146 mm Hg 01/10/20 25 Blood pressure diastolic 70 mm Hg 025 Heart Rate 49 /min 01/09/2025 Height 70 in 01/09/2025 Weight 152 lbs 01/09/2025 BMI 21.81 kg/m2 01/09/2025 Encounters Encounter Location Date Provider Diagnosis Hugo Smith III, MD [address] [place] [address] [address] [place], [place] [address] 01/09/2025 Hugo Smith Essential hypertensi on I10 ; Chronic lymphocytic leukemia C91.10 ; Mixed hyperlipidemia E78.2 ; Eczema, unspecified type L30.9 ; Coronary atherosclerosis due to calcified coronary lesion I25.84 ; BPH (benign prostatic hyperplasia) N40.0 and Former smoker Z87.891 Assessments Encounter Date Diagnosis (ICD Code) Assessment Notes T reatment Notes Treatment Clinical Notes 01/09/2025 Essential hypertension (ICD-10 - I10) His systolic blood pressure is slightly elevated.. The patient would like to have his systolic pressure closer to 125. We will try to attain this goal is in the near future.We discussed his medication detail. 01/09/2025 Chronic lymphocytic leukemia (ICD-10 - C91.10) His white blood cell count is slightly elevated due to an accumulation of lymphocytes. He has no splenomegaly or adenopathy. The ultrasound at [facility] showed no adenopathy in the abdomen and a normal-sized spleen of about 9 cm. Observation was continued. 01/09/2025 Mixed hyperlipidemia (ICD-10 - E78.2) His lipids are stable with no change in his regimen as necessary. 01/09/2025 Eczema, unspecified type (ICD-10 - L30.9) I have refilled a prescription he gets a compound pharmacy given to him originally by a fire safety manager. 01/09/2025 Coronary atherosclerosis due to calcified coronary lesion (ICD-10 - I25.84) He had inferolateral changes on a recent stress test consistent with ischemia. A cardiac catheterization is going to be done at the end of January 17, 2024. I counseled him at length about not exceeding certain activity levels between now and then. 01/09/2025 BPH (benign prostati c hyperplasia) (ICD-10 - N40.0) He rises at most once a night to urinate. There are lifestyle modifications he could take to reduce this further if needed. 01/09/2025 Former smoker (ICD-1 0 - Z87.891) He is determined to remain abstinent. He has a plan to deal with stress and illness. Plan Of Treatment Medication Medication Name Sig Start Date Stop Date Notes Lisinopril 10 MG TAKE 1 TABLET BY SEJAL TH EVERY DAY Aspirin 81 MG 1 tablet Orally Once a day Metoprolol Succinate ER 25 MG 1 tablet Orally Once a day Rosuvastatin Calcium 10 MG 1 tablet Orally Once a day Pending Test Test Name Order Date PROFILE, FASTING (COMPREHENSIVE METABOLI C) 01/09/2025 CBC w DIFF 01/09/2025 Lipid Panel 01/09/2025 Next Appt Details Follow Up: 3 Months, Reason: OV Provider Name:Hugo Mary Luis , 04/03/2025 10:30:00 AM, [address] [place] [address] [address], [place], [address], Provider Name:Hugo Gtz Luis , 08/22/2025 09:30:00 AM, [address] [place] [address] [address], [place], [address], Progress Notes * PREM HenriqueDOB: 0 (74 yo M)Acc No.[id number]:01/09/2025 Progress Notes Patient: Henrique SOTELO Provider: Chris Smith MD :1950 A ge:74 Y S ex:Male Date:01/09/2025 Address:[address] [place] [id number] Subjective: * Chief Complaints: * C hronic lymphocytic leukemiaHypertensionBenign prostatic hypertrophyCoronary artery disease * HPI: C OVID-19 Screening: He returns for medical management of several issues. He has been to the [facility] cancer [facility] for a consultation about the chronic lymphocytic leukemia with Dr. Chapman. He was very pleased with her and intends to stay with her. Comprehensive blood work was ordered.? She recommended observation.His blood pressure was slightly high at 146/70 and a repeat visit was scheduled. His weight is in the normal range. He seems to be healthy and well at this time.His blood work was reviewed with him in detail. Questions H ave you had any new [...] left 12/2016colonoscopy, negative findings 2003colonoscopy, Dr. Briggs, [facility], one inflammatory polyp 2013right shoulder rotor cuff surergy 08/2019left great big toe bone spur/ arthritis ardiac catheterization [facility] 60% occlusion circumflex branch Januaryyst surgically [...] x-cigarette smoker Diane gtz was born in [place], [place]. He has been to [place] for 35 years. They have a step child, Harsha. He has no grandchildren. He is retired from [employer], and has no exposures to toxic materials. He is not a Latter-day. * Medications: T akingLisinopril 10 MG Tablet [...] * Vitals: H t: 70, Wt:152, BMI:21.81, BP:146/70, HR:49, Temp:97.5, Ht-cm: 177.8, Wt-k.95. * P ast Orders: Lab:SLIDE REVIEW * Collection Date 11/15/2024 08/17/2024 [...] Range: < OR = 2.51 mg/L) * Lab:Complete Blood Count Aut o Diff [...] - X10*6/uL?Immature Retic Fraction9.02.3-13.4 - %?Retic HGB Nophhqltpa44.7H30.0-35.0 - pg?Reticulocyte Percent1.30.5-1.8 - % * Lab:Isabel [...] mg/dL) 9.1 (Ref Range: 8.4-10.2 mg/dL) * Lab:Lipid Panel * Collection Date 11/15/2024 [...] mg/dL) 53 (Ref Range: >40 mg/dL) * Examination: G eneral Examination: GENERAL APPEARANCE: mehran hleler, well nourished, well developed, in no acute [...] otes :His white blood cell count is slightly elevated due to an accumulation of lymphocytes. He has no splenomegaly or adenopathy. The ultrasound at [facility] showed no adenopathy in the abdomen and a normal-sized spleen of about 9 cm. Observation was continued. 2 . E ssential hypertension - I10 N otes :His systolic blood pressure is slightly elevated.. The patient would like to have his systolic pressure closer to 125. We will try to attain this goal is in the near future.We discussed his medication detail. 3 . M ixed hyperlipidemia - E78.2 N otes :His lipids are stable with no change in his regimen as necessary. 4 . E czema, unspecified type - L30.9 N otes :I have refilled a prescription he gets a compound pharmacy given to him originally by a fire safety manager. 5 . C oronary atherosclerosis due to calcified coronary lesion - I25.84 ? N otes :He had inferolateral changes on a recent stress test consistent with ischemia. A cardiac catheterization is going to be done at the end of January 17, 2024. I counseled him at length about not exceeding certain activity levels between now and then. 6 . B PH (benign prostatic hyperplasia) - N40.0 N otes :He rises at most once a night to urinate. There are lifestyle modifications he could take to reduce this further if needed. 7 . F ormer smoker - Z87.891 N [...] tobacco use and urged to quit. 0 01/09/2025 * Follow Up: 3 Months (Reason: OV) * Images: * Sign off status: Completed true * Provider: Chris Smith MD Date: 0 01/09/2025 Generated for Susana wallis/Richard/Niiitting on: 10:58 AM EDT History and Physical Notes [...]
--- OUTSIDE RECORDS SUMMARY | 2025-02-14 10:57 | XMS_ITS | Patient Health Record ---
Author Organization [facility] Address [address] [place] [address] Care Team Providers Care Stave Inspector Name Role Phone Hugo Smith MD Primary Care Provider Unavailab Anushka Gonzalez Unavailable [phone] Allergies No Known Allergies Reason For Referral [...] W/U Status Risk Notes Problem Plantar fibromatosis (79778935) Plantar fibromatosis (M72.2) Active confirmed Vital Signs Height 5ft 10in in 08/29/2024 Weight 150 lbs 08/29/2024 BMI 21.52 kg/m2 08/29/2024 Encounters Encounter Location Date Provider Diagnosis [facility] [address] [address] 08/29/2024 Anushka Baltazar Plantar fibromatosis M72.2 ; [...] [employer] [address] [place] [address] [id number] Henrique Amaro Self - patient is the insured 5 [employer] [address] [place] [address] [phone] [id number] Henrique Amaro Self - patient is the insured Medical (General) History Medical History History ICD Code Cancer Cataracts Heart disease High Blood Pressure Measles Mumps Chicken pox Surgical History Surgery Date(Month/Year) left rotator cuff clean out 12/2017 right rotator cuff clean out 11/2019 left bone spur 07/2020 cyst, back 06/2024
--- OUTSIDE RECORDS SUMMARY | 2025-02-14 10:57 | XMS_ITS | Patient Health Record ---
Author Organization Hugo Smith III, MD Address [address] [place] [address] [place] [address] Care Team Providers Care Director Of Federal Sales Name Role Phone Dr. Hugo Smith III Primary Care Provider Allergies Allergen (clinical drug ingredient) Drug/Non Drug Allergy documented on EMR Reaction Allergy Type Onset Date Status No Known Drug Allergy Unknown Drug Allergy Active No Known Food Allergy Unknown Drug Allergy Active Results Component Value Reference Range Notes Routine Culture Reviewed date:07/27/2024 08:13:39 PM Interpretation: Performing Lab:[facility], [address] [place] [phone] Notes/Report: FOREHEAD Routine Culture Report - external [...] ff Reviewed date:03/28/2024 05:40:08 AM Interpretation: Performing Lab:[facility], [address] [place] [phone] Notes/Report: White Blood Count 12.9 4.8-10.8 X10*3/uL [...] CBC Reviewed date:03/28/2024 05:40:08 AM Interpretation: Performing Lab:[facility], [address] [place] [phone] Notes/Report: Pathologist Review - CBC SEE NOTE Lymphocytes are increased in number and somewhat monotonous appearing; smudge cells are seen. The patient's reported history of CLL is noted. - Kyle Ramirez M.D. Pathology [facility] [place]. Panel [facility] Reviewed date:03/28/2024 05:40:08 AM Interpretation: Performing Lab:[facility], [address] [place] [phone] Notes/Report: Sodium 138 135-145 mmol/L Potassium 4.2 [...] Panel Reviewed date:03/28/2024 05:40:08 AM Interpretation: Performing Lab:[facility], [address] [place] [phone] Notes/Report: Triglycerides 75 <150 mg/dL Desirable Triglyceride: [...] REVIEW Reviewed date:03/28/2024 05:40:08 AM Interpretation: Performing Lab:[address] [phone] Notes/Report: SLIDE REVIEW VERIFIED Complete Blood Count Auto Di ff Reviewed date:05/26/2024 08:58:25 AM Interpretation: Performing Lab:[facility], [address] [place] [phone] Notes/Report: White Blood Count 13.0 4.8-10.8 X10*3/uL [...] 0.0-0.012 X10*3/uL CORRECTED REPORT CORRECTED REPORT [facility] [place]. Panel Fa [facility] Reviewed date:05/26/2024 08:58:25 AM Interpretation: Performing Lab:[facility], [address] [place] [phone] Notes/Report: Sodium 139 135-145 mmol/L Potassium 5.1 [...] Panel Reviewed date:05/26/2024 08:57:50 AM Interpretation: Performing Lab:[facility], [address] [place] [phone] Notes/Report: Triglycerides 114 <150 mg/dL Desirable Triglyceride: [...] REVIEW Reviewed date:05/26/2024 08:58:25 AM Interpretation: Performing Lab:[facility], [address] [place] [phone] Notes/Report: SLIDE REVIEW VERIFIED Gram stain Reviewed date:07/27/2024 08:13:39 PM Interpretation: Performing Lab:[facility], [address] [place] [phone] Notes/Report: FOREHEAD Gram stain Gram stain results: Gram stain No polys Gram stain 2+ epithelial cells Gram stain No organisms seen Complete Blood Count Auto Di ff Reviewed date:08/21/2024 10:01:24 AM Interpretation: Performing Lab:[facility], [address] [place] [phone] Notes/Report: White Blood Count 11.4 4.8-10.8 X10*3/uL [...] 0.0-0.012 X10*3/uL CORRECTED REPORT CORRECTED REPORT [facility] [place]. Panel Fa st Reviewed date:08/21/2024 10:01:24 AM Interpretation: Performing Lab:[facility], [address] [place] [phone] Notes/Report: Sodium 140 135-145 mmol/L Potassium 4.5 [...] Panel Reviewed date:08/21/2024 10:01:24 AM Interpretation: Performing Lab:[facility], [address] [place] [phone] Notes/Report: Triglycerides 71 <150 mg/dL Desirable Triglyceride: [...] REVIEW Reviewed date:08/21/2024 10:01:24 AM Interpretation: Performing Lab:[facility], [address] [place] [phone] Notes/Report: SLIDE REVIEW VERIFIED Complete Blood Count Auto Di ff Reviewed date:11/17/2024 02:15:04 PM Interpretation: Performing Lab:[facility], [address] [place] [phone] Notes/Report: White Blood Count 13.2 4.8-10.8 X10*3/uL Red Blood Count 4.36 4.60-5.80 X10*6/uL Hemoglobin 13.6 14.0-18.0 g/dl Hematocrit 41.4 42.0-52.0 % Mean Corpuscular Volume 95.0 80.0-98.0 fL Mean Corpuscular Hemoglobin 31.2 27.0-33.0 pg Mean Corpuscular HGB Conc 32.9 31.0-36.0 g/dl Red Cell Distribution Width 12.8 11.0-16.0 % Platelet Count 112 160-400 X10*3/uL Mean Platelet Volume 12.1 9.4-12.4 fL Neutrophils Percent Auto 23.5 45-73 % Imm Gran Pct Auto 0.2 0.0-0.4 % Lymphocytes Percent Auto 70.2 20-40 % Monocytes Percent Auto 4.9 2-11 % Eosinophils Percent Auto 0.8 0-4 % Basophils Percent Auto 0.4 0-2 % NRBC Pct Auto 0.2 0.0-0.2 /100WBC Neutrophils Absolute Auto 3.1 2.0-8.3 x10*3/u L Imm Gran Abs Auto 0.02 0.00-0.03 X10*3/uL Lymphocytes Absolute Auto 9.3 1.2-4.9 X10*3/u L Monocytes Absolute Auto 0.6 0.1-1.2 X10*3/uL Eosinophils Absolute Auto 0.1 0.0-0.4 X10*3/u L Basophils Absolute Auto 0.1 0.0-0.2 X10*3/uL NRBC Abs Auto 0.020 0.0-0.012 X10*3/uL White Blood Count 13.2 4.8-10.8 X10*3/uL Red Blood Count 4.36 4.60-5.80 X10*6/uL Hemoglobin 13.6 14.0-18.0 g/dl Hematocrit 41.4 42.0-52.0 % Mean Corpuscular Volume 95.0 80.0-98.0 fL Mean Corpuscular Hemoglobin 31.2 27.0-33.0 pg Mean Corpuscular HGB Conc 32.9 31.0-36.0 g/dl Red Cell Distribution Width 12.8 11.0-16.0 % Platelet Count 112 160-400 X10*3/uL Mean Platelet Volume 12.1 9.4-12.4 fL Neutrophils Percent Auto 23.5 45-73 % Imm Gran Pct Auto 0.2 0.0-0.4 % Lymphocytes Percent Auto 70.2 20-40 % Monocytes Percent Auto 4.9 2-11 % Eosinophils Percent Auto 0.8 0-4 % Basophils Percent Auto 0.4 0-2 % NRBC Pct Auto 0.2 0.0-0.2 /100WBC Neutrophils Absolute Auto 3.1 2.0-8.3 x10*3/u L Imm Gran Abs Auto 0.02 0.00-0.03 X10*3/uL Lymphocytes Absolute Auto 9.3 1.2-4.9 X10*3/u L Monocytes Absolute Auto 0.6 0.1-1.2 X10*3/uL Eosinophils Absolute Auto 0.1 0.0-0.4 X10*3/u L Basophils Absolute Auto 0.1 0.0-0.2 X10*3/uL NRBC Abs Auto 0.020 0.0-0.012 X10*3/uL CORRECTED REPORT CORRECTED REPORT RETIC Reviewed date:11/17/2024 02:15:04 PM Interpretation: Performing Lab:[facility], [address] [place] [phone] Notes/Report: Reticulocytes Absolute 0.055 0.026-0.0 95 X10*6/uL Immature Retic Fraction 9.0 2.3-13.4 % Retic HGB Equivalent 35.7 30.0-35.0 pg Reticulocyte Percent 1.3 0.5-1.8 % [facility] [place]. Panel Fa st Reviewed date:11/17/2024 02:15:04 PM Interpretation: Performing Lab:[facility], [address] [place] [phone] Notes/Report: Sodium 143 135-145 mmol/L Potassium 4.9 3.3-5.1 mmol/L Chloride 109 96-108 mmol/L Carbon Dioxide 29 22-29 mmol/L Anion Gap 10 12-20 Blood Urea Nitrogen 18 9-16 mg/dL Creatinine 1.18 0.5-1.4 mg/dL Estimated Glomerular Filt Rate > 60 Chronic Kidney Disease: Estimated GFR < 60 mL/min/1.73m2 Severe Kidney Disease: Estimated GFR < 15 mL/min/1.73m2 Glucose Fasting 95 60-99 mg/dL Calcium 9.5 8.4-10.2 mg/dL Bilirubin Total 0.7 0.0-1.0 mg/dL Aspartate Amino Transferase 51 5-37 U/L Alanine Aminotransferase 64 0-40 U/L Total Protein 6.9 6.5-8.0 g/dL Albumin Level 4.3 3.5-5.0 g/dL Alkaline Phosphatase 48 39-117 U/L Lipid Panel Reviewed date:11/17/2024 02:15:04 PM Interpretation: Performing Lab:[address] [phone] Notes/Report: Triglycerides 125 <150 mg/dL Desirable Triglyceride: less than 150 mg/dL Borderline High Triglyceride 150-199 mg/dL High Triglyceride: 200-499 mg/dL Very High Triglyceride: greater than or equal to 5OO mg/dL Cholesterol 141 <200 mg/dL Desirable Cholesterol: less than 200 mg/dL Borderline High Cholesterol: 200-239 mg/dL High Cholesterol: greater than 239 mg/dL LDL Cholesterol Calculated 59 <100 mg/dL Desirable LDL: less than 100 mg/dL Near Optimal/Above Optimal LDL: 110-129 mg/dL Borderline High LDL: 130-159 mg/dL High LDL: 160-189 mg/dL Very High LDL: greater than or equal to 190 mg/dL HDL Cholesterol 57 >40 mg/dL Desirable HDL: greater than 40 mg/dL Note: This HDL assay may give artificially low results in patients with liver disease. Beta-2 Microglobulin, Serum Reviewed date:11/18/2024 07:11:24 PM Interpretation: Performing Lab:[address] [phone] Notes/Report: Beta-2 Microglobulin, Serum 2.30 < OR = 2.51 mg/L THIS TEST WAS PERFORMED AT: [facility] [address] [place] [phone] GLORIA PACHECO MD SLIDE REVIEW Reviewed date:11/17/2024 02:15:04 PM Interpretation: Performing Lab:[facility], [address] [place] [phone] Notes/Report: SLIDE REVIEW VERIFIED Reason For Referral Reason evaluate and treatme nt appointment needed with Dr Callahan CLL with new Thrombocytopenia never treated Diagnosis 1 Chronic lymphocytic leukemia (C91.10) Referral Organization Hugo Smith III, MD Referring Provider First Name Hugo Referring Provider Last Name Luis Referring Provider Speciality Internal M edicine Referred Provider SANTOS CALLAHAN Referred Provider Specialty Hematology/O ncology General Notes Vero Verma KELLE 11/21 02:17:24 PM > ref/progress notes/pathology faxed to [facility] asking for appt with Dr Callahan per patient request, Vero Verma KELLE 11/22/2024 11:33:04 AM >I called [facility] at [phone] spoke to Jessica she has all the information she needs now she will message Dr Callahan to get appt and then call me back with appt information . patient made aware of this, Vero Verma KELLE 11/28/2024 09:52:06 AM > I called Dr Callahan office spoke to Kael patient was given appt with Dr Callahan for Wednesday12/06/2024 at 1pm [address] entrance on 2nd floor [facility] [phone] pt called and mailed this appt information Referral Priority Routine Referral Appointment Date 12/06/2024 Medications Medication SIG (Take, Route, Frequency, Duration) Notes Start Date End Date Status Lisinopril 10 MG TAKE 1 TABLET BY SEJAL EVERY DAY Active Aspirin 81 MG 1 tablet Orally Once a day Active Metoprolol Succinate ER 25 MG 1 tablet Orally Once a day Active Rosuvastatin Calcium 10 MG 1 tablet Oral ly Once a day Active Immunizations Vaccine Route [...] Problem Status W/U Status Risk Notes Problem [id number] Former smoker (Z87.891) Active confirmed He is determine d to remain abstinent. He has a plan to deal with stress and illness. Problem 965640832 Mixed hyperlipidemia (E78.2) Active confirmed His lipids are stable with no change in his regimen as necessary. Problem Atherosclerosis of coronary artery (121545903) Coronary atherosclerosis due to calcified coronary lesion (I25.84) Active confirmed He had inferolateral changes on a recent stress test consistent with ischemia. A cardiac catheterization is going to be done at the end of January 17, 2024. I counseled him at length about not exceeding certain activity levels between now and then. Problem [id number] Actinic keratosis (L57.0) Active confirmed He will see the funeral director/embalmer/owner periodically. Problem Benign prostatic hyperplasia (145563912) BPH (benign prostatic hyperplasia) (N40.0) Active confirmed He rises at mos t once a night to urinate. There are lifestyle modifications he could take to reduce this further if needed. Problem 37237149 Essential hypertension (I10) Active confirmed His systolic blood pressure is slightly elevated.. The patient would like to have his systolic pressure closer to 125. We will try to attain this goal is in the near future.We discussed his medication detail. Problem 650142670 Onychomycosis (B35.1) Active confirmed There is no systemic infection and no pain. It was elected to observe this condition at this time. Problem 16688346 Chronic lymphocytic leukemia (C91.10) Active confirmed His white blood cell count is slightly elevated due to an accumulation of lymphocytes. He has no splenomegaly or adenopathy. The ultrasound at [facility] showed no adenopathy in the abdomen and a normal-sized spleen of about 9 cm. Observation was continued. Problem 911252991 Acne rosacea (L71.9) Active confirmed The acne is josesito y mild and no additional treatment is necessary. Problem 59381489 Eczema, unspecified type (L30.9) Active confirmed I have refilled a prescription he gets a compound pharmacy given to him originally by a funeral director/embalmer/owner. Problem 39532906 Retinal tear of right eye (H33.311) Active confirmed This has been corrected in his vision has been stable lately. Problem 932676819 Left upper lobe pulmonary nodule (R91.1) Active [...] change in the left upper lobe nodules Problem 84330434 Hemangioma of liver (D18.03) Active confirmed This was a finding on imaging and will be observed. Vital Signs Heart Rate 49 /min 01/09/2025 Temperature 97.5 degrees Fahrenheit 01/09/2025 Blood pressure diastolic 70 mm Hg 01/09/2025 Height 70 in 01/09/2025 Blood pressure systolic 146 mm Hg 01/09/2025 Weight 152 lbs 01/09/2025 BMI 21.81 kg/m2 01/09/2025 Encounters Encounter Location Date Provider Diagnosis Hugo Smith III, MD [address] [place] [address] [place] [phone] 03/27/2024 Hugo Smith Essential hypertensi on I10 ; Chronic lymphocytic leukemia C91.10 ; Mixed hyperlipidemia E78.2 ; Former smoker Z87.891 and Coronary atherosclerosis due to calcified coronary lesion I25.84 Hugo Smith III, MD [address] [place] [address] [place] [phone] 05/18/2024 Hugo Smith Essential hypertensi on I10 ; Chronic lymphocytic leukemia C91.10 ; Actinic keratosis L57.0 ; Retinal tear of right eye H33.311 ; Mixed hyperlipidemia E78.2 ; Eczema, unspecified type L30.9 ; Onychomycosis B35.1 and BPH (benign prostatic hyperplasia) N40.0 Hugo Smith III, MD [address] [place] [address] [place] [address] 05/29/2024 Hugo Smith Essential hypertensi on I10 ; Chronic lymphocytic leukemia C91.10 ; Mixed hyperlipidemia E78.2 ; Actinic keratosis L57.0 ; Acne rosacea L71.9 ; Former smoker Z87.891 and Eczema, unspecified type L30.9 Hugo Smith III, MD [address] [place] [address] [place] [address] 07/25/2024 Hugo Smith Essential hypertensi on I10 ; Skin infection L08.9 ; Chronic lymphocytic leukemia C91.10 and Former smoker Z87.891 Hugo Smith III, MD [address] [place] [address] [place] [address] 07/28/2024 Hugo Freemanrne Essential hypertensi on I10 ; Skin infection L08.9 ; Former smoker Z87.891 ; Chronic lymphocytic leukemia C91.10 and Coronary atherosclerosis due to calcified coronary lesion I25.84 Hugo Smith III, MD [address] [place] [address] [place] [address] 08/21/2024 Hugo Smith Essential hypertensi on I10 ; Chronic lymphocytic leukemia C91.10 ; Mixed hyperlipidemia E78.2 ; Hemangioma of liver D18.03 ; Left upper lobe pulmonary nodule R91.1 ; Former smoker Z87.891 and Coronary atherosclerosis due to calcified coronary lesion I25.84 Hugo Smith III, MD [address] [place] [address] [place] [address] 11/21/2024 Hugo Smith Essential hypertensi on I10 ; Chronic lymphocytic leukemia C91.10 ; Mixed hyperlipidemia E78.2 ; BPH (benign prostatic hyperplasia) N40.0 ; Actinic keratosis L57.0 ; Retinal tear of right eye H33.311 ; Coronary atherosclerosis due to calcified coronary lesion I25.84 ; Hemangioma of liver D18.03 ; Left upper lobe pulmonary nodule R91.1 and Former smoker Z87.891 Hugo Smith III, MD [address] [place] [address] [place] [address] 11/28/2024 Hugo Smith Essential hypertensi on I10 ; Former smoker Z87.891 ; Mixed hyperlipidemia E78.2 ; Acne rosacea L71.9 ; Chronic lymphocytic leukemia C91.10 ; Coronary atherosclerosis due to calcified coronary lesion I25.84 ; BPH (benign prostatic hyperplasia) N40.0 ; Hemangioma of liver D18.03 and Left upper lobe pulmonary nodule R91.1 Hugo Smith III, MD [address] [place] [address] [place] [address] 01/09/2025 Hugo Smith Essential hypertensi on I10 ; Chronic lymphocytic leukemia C91.10 ; Mixed hyperlipidemia E78.2 ; Eczema, unspecified type L30.9 ; Coronary atherosclerosis due to calcified coronary lesion I25.84 ; BPH (benign prostatic hyperplasia) N40.0 and Former smoker Z87.891 Hugo Smith III, MD [address] [place] [address] [place] [address] 08/22/2024 Hugo Smith III, MD [address] [place] [address] [place] [address] 08/27/2024 Hugo Smith III, MD [address] [place] [address] [place] [address] 08/27/2024 Hugo Smith Assessments Encounter Date Diagnosis (ICD Code) Assessment Notes T reatment Notes Treatment Clinical Notes 03/27/2024 Essential hypertension (ICD-10 - I10) His blood pressure today was 128/59. His body mass index was 22. We reviewed the elements of aggressive sodium restriction. He is exercising strenuously. His blood pressure will be checked frequently. Our goal is to reduce his systolic by 20 points. 03/27/2024 Chronic lymphocytic leukemia (ICD-10 - C91.10) His platelet count and hematocrit are stable. [facility] [place] [address] with 66% lymphocytes. No therapy is necessary. [...] His platelet count and hematocrit are stable. [facility] [place] [address] with 66% lymphocytes. No therapy is necessary. [...] 2200 lymphocytes. We discussed this at length. 11/21/2024 Essential hypertension (ICD-10 - I10) His [...] request he is being referred to the [facility] cancer Center to Dr. Callahan. Records are being sent. 11/28/2024 Former smoker (ICD-1 0 - Z87.891) He is determined to remain abstinent. He has a plan to deal with stress and illness. 11/28/2024 Essential hypertension (ICD-10 - I10) His blood pressure is currently stable. The patient would like to have his systolic pressure closer to 125. We will try to attain this goal is in the near future. 01/09/2025 Essential hypertension (ICD-10 - I10) His [...] no splenomegaly or adenopathy. The ultrasound at [facility] showed no adenopathy in the abdomen and a normal-sized spleen of about 9 cm. Observation was continued. 03/27/2024 Mixed hyperlipidemia (ICD-10 - E78.2) The current fasting lipid profile shows good control of his lipids. His weight is in the normal range. We reviewed his diet. No change in his medication was necessary. 05/18/2024 Actinic keratosis (ICD-10 - L57.0) He will see the funeral director/embalmer/owner periodically. 05/29/2024 Mixed hyperlipidemia (ICD-10 - E78.2) [...] aree currently stable and require no treatment. 11/21/2024 Mixed hyperlipidemia (ICD-10 - E78.2) His lipids are currently stable and no change in his regimen is necessary today. 11/28/2024 Mixed hyperlipidemia (ICD-10 - E78.2) His lipids are currently stable and no change in his regimen is necessary today. 01/09/2025 Mixed hyperlipidemia (ICD-10 - E78.2) His lipids are stable with no change in his regimen as necessary. 03/27/2024 Former smoker (ICD-1 0 - Z87.891) He is determined to remain abstinent. He has a plan to deal with stress and illness. 05/18/2024 Retinal tear of righ t eye (ICD-10 - H33.311) This has been corrected in his vision has been stable lately. 05/29/2024 Actinic keratosis (ICD-10 - L57.0) He will see the funeral director/embalmer/owner periodically. 07/25/2024 Former smoker (ICD-1 0 - [...] on imaging and will be observed. 11/21/2024 BPH (benign prostati c hyperplasia) (ICD-10 - N40.0) He rises at most once a night to urinate. There are lifestyle modifications he could take to reduce this further if needed. 11/28/2024 Acne rosacea (ICD-10 - L71.9) The acne is very mild and no additional treatment is necessary. 01/09/2025 Eczema, unspecified type (ICD-10 - L30.9) I have refilled a prescription he gets a compound pharmacy given to him originally by a funeral director/embalmer/owner. 03/27/2024 Coronary atherosclerosis due to calcified coronary [...] done in 2023. This has been scheduled. 11/21/2024 Actinic keratosis (ICD-10 - L57.0) He will see the funeral director/embalmer/owner periodically. 11/28/2024 Chronic lymphocytic leukemia (ICD-10 - C91.10) [...] request he is being referred to the [facility] cancer Center to Dr. Callahan. Records are being sent. 01/09/2025 Coronary atherosclerosis due to calcified coronary lesion (ICD-10 - I25.84) He had inferolateral changes on a recent stress test consistent with ischemia. A cardiac catheterization is going to be done at the end of January 17, 2024. I counseled him at length about not exceeding certain activity levels between now and then. 05/18/2024 Eczema, unspecified type (ICD-10 - L30.9) I have refilled a prescription he gets a compound pharmacy given to him originally by a funeral director/embalmer/owner. 05/29/2024 Former smoker (ICD-1 0 - Z87.891) He is determined to remain abstinent. He has a plan to deal with stress and illness. 08/21/2024 Former smoker (ICD-1 0 - Z87.891) He is determined to remain abstinent. He has a plan to deal with stress and illness. 11/21/2024 Retinal tear of righ t eye (ICD-10 - H33.311) This has been corrected in his vision has been stable lately. 11/28/2024 Coronary atherosclerosis due to calcified coronary [...] take to reduce this further if needed. 05/18/2024 Onychomycosis (ICD-1 0 - B35.1) There is no systemic infection and no pain. It was elected to observe this condition at this time. 05/29/2024 Eczema, unspecified type (ICD-10 - L30.9) I have refilled a prescription he gets a compound pharmacy given to him originally by a funeral director/embalmer/owner. 08/21/2024 Coronary atherosclerosis due to calcified coronary lesion (ICD-10 - I25.84) He had inferolateral changes on a recent stress test consistent with ischemia. A cardiac catheterization is going to be done at the end of January 17, 2024. I counseled him at length about not exceeding certain activity levels between now and then. 11/21/2024 Coronary atherosclerosis due to calcified coronary [...] to deal with stress and illness. 05/18/2024 BPH (benign prostati c hyperplasia) (ICD-10 - N40.0) He rises from sleep once or twice a night to urinate. According to fluid intake. We have discussed lifestyle modification as a way to reduce nocturia. 11/21/2024 Hemangioma of liver (ICD-10 - D18.03) This was a finding on imaging and will be observed. 11/28/2024 Hemangioma of liver (ICD-10 - D18.03) [...] change in the left upper lobe nodules 11/28/2024 Left upper lobe pulmonary nodule (ICD-10 [...] SMEAR 9 PROFILE, FASTING (COMPREHENSIVE METABOLI C) 08/17/2019 PROFILE, FASTING (COMPREHENSIVE METABOLI C) 04/17/2019 PROFILE, FASTING (COMPREHENSIVE METABOLI C) 09/05/2020 PROFILE, FASTING (COMPREHENSIVE METABOLI C) 07/28/2021 PROFILE, FASTING (COMPREHENSIVE METABOLI C) 01/09/2025 PROFILE, FASTING (COMPREHENSIVE METABOLI C) 01/24/2024 PROFILE, FASTING (COMPREHENSIVE METABOLI C) 11/21/2024 PROFILE, FASTING (COMPREHENSIVE METABOLI C) 12/15/2022 PROFILE, FASTING (COMPREHENSIVE METABOLI C) 01/12/2019 PROFILE, FASTING (COMPREHENSIVE METABOLI C) 04/22/2021 PROFILE, FASTING (COMPREHENSIVE METABOLI C) 10/26/2019 PROFILE, FASTING (COMPREHENSIVE METABOLI C) 08/11/2022 PROFILE, FASTING (COMPREHENSIVE METABOLI C) 03/23/2022 PROFILE, FASTING (COMPREHENSIVE METABOLI C) 03/27/2024 PROFILE, FASTING (COMPREHENSIVE METABOLI C) 12/25/2020 PROFILE, RANDOM (COMPREHENSIVE METABOLIC ) 01/31/2020 PROFILE, RANDOM (COMPREHENSIVE METABOLIC ) 05/02/2020 PROFILE, RANDOM (COMPREHENSIVE METABOLIC ) 10/06/2018 PROFILE, RANDOM (COMPREHENSIVE METABOLIC ) 11/17/2021 LIPID PANEL 11/17/2021 LIPID PANEL 08/17/2019 LIPID PANEL 04/17/2019 LIPID PANEL 09/05/2020 LIPID PANEL 07/28/2021 LIPID PANEL 12/15/2022 LIPID PANEL 01/12/2019 LIPID PANEL 05/02/2020 LIPID PANEL 04/22/2021 LIPID PANEL 10/26/2019 LIPID PANEL 08/11/2022 GGT 03/23/2022 GGT 07/28/2021 LDH 03/23/2022 TSH (THYROID STIMULATING HORMONE) 2018 PSA, TOTAL 08/11/2022 PSA, TOTAL 11/17/2021 PSA, TOTAL 11/21/2024 CBC w DIFF 12/25/2020 CBC w DIFF 08/11/2022 CBC w DIFF 01/09/2025 CBC w DIFF 03/23/2022 CBC w DIFF 08/17/2019 CBC w DIFF 11/17/2021 CBC w DIFF 09/05/2020 CBC w DIFF 07/28/2021 CBC w DIFF 11/21/2024 CBC w DIFF 12/15/2022 CBC w DIFF 01/12/2019 CBC w DIFF 05/02/2020 CBC w DIFF 04/22/2021 CBC w DIFF 10/26/2019 CBC with MANUAL DIFFERENTIAL 11/07/2018 CBC with MANUAL DIFFERENTIAL 01/31/2020 CBC with MANUAL DIFFERENTIAL 09/06/2018 CBC with MANUAL DIFFERENTIAL 04/17/2019 CBC with MANUAL DIFFERENTIAL 10/06/2018 URINALYSIS (UA) 08/01/2019 LEUKEMIA & LYMPHOMA EVAL (LLE) BLOOD URINE CULTURE 08/01/2019 CT CHEST WITH CONTRAST 12/11/2020 CT CHEST WITH CONTRAST 12/25/2020 US RENAL BILATERAL 04/24/2019 US URINARY BLADDER 04/24/2019 Stress Test 01/06/2021 VITAMIN D 25-OH TOTAL 11/17/2021 CBC WITH AUTO DIFF 03/27/2024 CBC WITH AUTO DIFF 01/24/2024 Platelet Count 09/05/2020 Lipid Panel 12/25/2020 Lipid Panel 03/27/2024 Lipid Panel 01/09/2025 Lipid Panel 03/23/2022 Lipid Panel 01/24/2024 Lipid Panel 11/21/2024 CT chest w con 04/16/2023 NUC Stress Test 01/22/2021 Next Appt Details Provider Name:Hugo Smith , 04/03/2025 10:30:00 AM, [address] [place] [address] [place], [address], Provider Name:Hugo Mary Luis , 08/22/2025 09:30:00 AM, [address] [place] [address] [place], [address], Insurance Providers Payer Name Payer Address Payer Phone Subscriber Number Group Number Insured Name Patient Relationship to Insured Coverage Start Date Coverage End Date MEDICARE NGS [address] [place] JIMENEZ [phone] [id number] Henrique Amaro Self - patient is the insured [employer] [address] [place], [place] [id number] Henrique Amaro Self - patient is [...] middle of the back 06/27/2023 Cardiac catheterization [facility] 60% occlusion circumflex branch January 2024 left great big toe bone spur/ arthritis 08/2020 right shoulder rotor cuff surergy 0 colonoscopy, Dr. Briggs, [facility], one inflammatory polyp 2013 colonoscopy, negative findings 2003 rotator cuff surgery, left 12/2016 Hospitalization History Reason Date(Month/Year) No history fractured rib due to fall 12/2019
--- OUTSIDE RECORDS SUMMARY | 2025-02-14 10:58 | XMS_ITS | Patient Health Record ---
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 Name Role Phone Hugo Smith MD Primary Care Provider Unavailab Hugo Beyer Unavailable [phone] Allergies No Known Allergies Reason For Referral No Information Medications Medication SIG (Take, Route, Frequency, Duration) Notes Start Date End Date Status Aspir-Low 81 MG 1 tablet Orally Once a day; Duration: 30 day(s) Active Rosuvastatin Calcium 10 MG Oral; Duration: 90 Active Lisinopril 10 MG Oral; Duration: 90 Active Multi Vitamin/Minerals Orally Active Metoprolol Succinate ER 25 MG Oral; Duration: 90 Active Immunizations Vaccine Route Administration Date Status Comme nts Influenza Unknown 01/04/2024 Administered Problems Problem Type SNOMED Code ICD Code Onset Dates Problem Status W/U Status Risk Notes Problem Colon cancer screening (367156454) Colon cancer screening (Z12.11) Active confirmed Problem Long-term current use of aspirin (1426743437034 03) Aspirin long-term use (Z79.82) Active confirmed Vital Signs Temperature 97.7 degrees Fahrenheit 12/12/2024 Blood pressure diastolic 01 mm Hg 12/12/2024 Height 69 in 12/12/2024 Blood pressure systolic 001 mm Hg 12/12/2024 Weight 155.2 lbs 12/12/2024 BMI 22.92 kg/m2 12/12/2024 Procedures Procedure Date Ordered Date Performed Result Body Sit e COLONOSCOPY 12/12/2024 N/A Encounters Encounter Location Date Provider Diagnosis [facility] [address] [place] [id number] 12/12/2024 Hugo Briggs Colon cancer screening Z12.11 and Aspirin long-term use Z79.82 Assessments Encounter Date Diagnosis (ICD Code) Assessment Notes Treatment Notes Treatment Clinical Notes Section Notes 12/12/2024 Colon cancer screening (ICD-10 - Z12.11) Overall, Ed appears quite well and is not having any new or worrisome GI complaints. As such, I did recommend a screening colonoscopy given his last exam being over 10 years ago and his otherwise good clinical appearance. We did review the rationale for this in regard to colon cancer prevention. Full consent has been obtained for this, including risk of bleeding and perforation. The procedure will be done with monitored anesthesia care. He has been given the below instructions regarding adjustment of medications for the procedure. I did advise him to keep me posted in regard to his platelet count in case that drops too low and we need to make some adjustment for the colonoscopy. Ed was comfortable with this plan. Thank you again for allowing me to participate in Ed's care. I shall continue to keep you advised of his progress. 12/12/2024 Aspirin long-term use (ICD-10 - Z79.82) Overall, Ed appears quite well and is not having any new or worrisome GI complaints. As such, I did recommend a screening colonoscopy given his last exam being over 10 years ago and his otherwise good clinical appearance. We did review the rationale for this in regard to colon cancer prevention. Full consent has been obtained for this, including risk of bleeding and perforation. The procedure will be done with monitored anesthesia care. He has been given the below instructions regarding adjustment of medications for the procedure. I did advise him to keep me posted in regard to his platelet count in case that drops too low and we need to make some adjustment for the colonoscopy. Ed was comfortable with this plan. Thank you again for allowing me to participate in Ed's care. I shall continue to keep you advised of his progress. Plan Of Treatment Pending Test Test Name Order Date COLONOSCOPY 12/12/2024 Future Test Test Name Order Date COLONOSCOPY 12/28/2013 COLONOSCOPY 10/26/2023 Next Appt Details Provider Name:Hugo Briggs , 03/26/2025 10:40:00 AM, [address] [facility] , [place], [place], [phone], Insurance Providers Payer Name Payer Address Payer Phone Subscriber Number Group Number Insured Name Patient Relationship to Insured Coverage Start Date Coverage End Date MEDICARE OF [place] [address] [place] [address] [id number] KAY PACHECO Self - patient is the insured [employer] CLAIMS [address] [place] [phone] [id number] KAY PACHECO Self - patient is the insured Medical (General) History Medical History History ICD Code HTN Hyperlipidemia Left eye legally blind Acne rosacea Denies DM,CVA,Lung disease,renal disease Neg. colonoscopy [place] [address] Martinez , except for internal hemorrhoids History of silent heart attack - Dr. Mary woodward- scheduled for an ETT in 10/2023 Colonoscopy in 02/2014 with only a small inflammatory polyp CLL 2018--Dr. Chapman at [facility] Heme/Onc Cardiac cath 12/2023--no significant lesi ons--no stents Surgical History Surgery Date(Month/Year) left toe bone spur 2020 right shoulder cleaning arthiritis 2019 left shoulder cleaning arthritis 2018
[2025-02-14 11:47] LABS: Hematocrit 43.7 % (42.0-52.0); Hemoglobin 14.2 g/dl (14.0-18.0); Imm Gran Abs Auto 0.02 X10*3/uL (0.00-0.03); Imm Gran Pct Auto 0.1 % (0.0-0.4); MANUAL DIFF FLAG SCAN; Mean Corpuscular HGB Conc 32.5 g/dl (31.0-36.0); Mean Corpuscular Hemoglobin 30.9 pg (27.0-33.0); Mean Corpuscular Volume 95.2 fL (80.0-98.0); NRBC Abs Auto 0.000 X10*3/uL (0.0-0.012); NRBC Pct Auto 0.0 /100WBC (0.0-0.2); Platelet Count 133 X10*3/uL (160-400); Red Blood Count 4.59 X10*6/uL (4.60-5.80); SCAN SMEAR FLAG 1; White Blood Count 14.6 X10*3/uL (4.8-10.8)
[2025-02-14 11:53] LABS: Lymphocytes Absolute Auto 10.7 X10*3/uL (1.2-4.9)
[2025-02-14 12:15] LABS: Alanine Aminotransferase 65 U/L (0-40); Albumin Level 4.5 g/dL (3.5-5.0); Alkaline Phosphatase 55 U/L (39-117); Anion Gap 10 (12-20); Aspartate Amino Transferase 52 U/L (5-37); Blood Urea Nitrogen 19 mg/dL (9-16); Calcium 9.5 mg/dL (8.4-10.2); Carbon Dioxide 28 mmol/L (22-29); Chloride 110 mmol/L (96-108); Cholesterol 148 mg/dL (<200); Estimated Glomerular Filt Rate > 60; HDL Cholesterol 56 mg/dL (>40); Potassium 4.8 mmol/L (3.3-5.1); Sodium 143 mmol/L (135-145); Total Protein 7.0 g/dL (6.5-8.0); Triglycerides 116 mg/dL (<150)
== END 2025-02-14 09:25 | disposition home or self-care (01) ==
LOC: HO.10HDL 09:24
PROVIDERS: Visit Provider Internal Medicine Medical Oncology
DX: I10 Essential (primary) hypertension (principal); E78.2 Mixed hyperlipidemia; C91.10 Chronic lymphocytic leukemia of B-cell type not having achieved remission
CPT/HCPCS: 36415; 80053; 80061; 85025

== ENCOUNTER 2025-03-26 09:14 | Day surgery (SDC) | payer MEDICARE, SELFPAY ==
[2025-03-22 15:08] VITALS: BMI 25.8
--- NOTE | 2025-03-23 13:52 | HO.ANESPROP2 ---
Documented by User: Carmela Richard NP 03/23/25 13:59 HPI - Anesthesia Eval Consult details Narrative: 74yo M for Colonoscopy Follows [facility] Cardiology. Stable at 09/2024 office visit with good exercise tolerance 1.? Coronary artery disease.??Mild to moderate coronary artery disease by cardiac catheterization?12/2023.? 60% OM2 lesion, negative by FFR.? With prior?abnormal?nuclear stress test 2.? Hypertension 3.? Dyslipidemia, with history of elevated LFTs on atorvastatin.? Currently tolerating rosuvastatin. Follows [facility] Oncology for CLL Stage 0. 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, as defined in [place] Hyperlipidemia HTN (hypertension) Surgical History Surgical History (Updated 03/26/25 @ 09:23 by Loida Meza RN) Hx of foot surgery Hx of shoulder surgery Hx of cardiac catheterization H/O colonoscopy Social History Social History Patient Tobacco Use Status: Former Tobacco user Tobacco use type: Cigarette Use of substances other than those prescribed or required for medical reasons: No Are you DNR?: No Advance Directives: Yes Advance Directives on File: Yes Advance Directives Date on File: 01/23/20 Meds Allergies Allergy/AdvReac Type Severity Reaction Status Date / Time No Known Allergies (No Known Allergy Unverified 01/04/20 16:34 Allergies*) Home Medications ?Medication ?Instructions ?Recorded ?Confirmed ?Last Taken ?Type aspirin 81 mg tablet,delayed 81 mg PO DAILY 03/22/25 03/22/25 Unknown History release metoprolol succinate 25 mg 25 mg PO DAILY 03/22/25 03/22/25 Unknown History tablet,extended release 24 hr multivitamin 1 tab PO DAILY 03/22/25 03/22/25 Unknown History rosuvastatin 10 mg tablet 10 mg PO BEDTIME 03/22/25 03/22/25 Unknown History Exam Height,Weight and Vital Signs: Height 5 ft 5 in Weight 70.398 kg Pertinent Lab Results Pertinent Lab Results: Laboratory Tests 02/14/25 09:32 WBC 14.6 H Hgb 14.2 Hct 43.7 Plt Count 133 L Sodium 143 Potassium 4.8 Chloride 110 H Carbon Dioxide 28 BUN 19 H Creatinine 1.18 Narrative Narrative: ECGECG 12-Lead ? 14:30:46 Ventricular Rate: 46 BPM Atrial Rate: 46 BPM P-R Interval: 200 ms QRS Duration: 102 ms Q-T Interval: 460 ms QTC Calculation(Bazett): 402 ms P [place]: 22 degrees R [place]: 62 degrees T [place]: 51 degrees Sinus bradycardia Otherwise normal ECG When compared with ECG of 17-JAN-2024 09:40, Premature supraventricular complexes are no longer Present Confirmed ? Signed By: Alec RODRIGUEZ, Maulik Noland ? ECG 12-Lead ? 14:30:46 Please click on pdf link to open report ? Signed By: Maulik Michael MD Stress Test NM Myocard Perf SPECT Multi ? 00:00:00 Summary 1. Myocardial perfusion imaging is abnormal after exercise stress test at functional capacity at high estimated functional capacity. There is a small sized , severe intensity, partially reversible perfusion defect in the mid to distal anterior wall, with decreased thickening, suggestive of mixed infarct/ischemia. Also noted is mild reversible perfusion defect in the apex, suspicious for ischemia. Large area of severe perfusion defect in the entire inferior wall and part of the inferolateral and inferoseptal wall, with decreased thickening, may be due to infarct or less likely, diaphragmatic attenuation. 2. LV function is normal with an E.F. of 68 % at rest and 73 % with stress. 3. EKG portion of the stress test is reported separately. This procedure is not being performed on this patient for preoperative evaluation for low-risk surgery within 30 days. Findings communicated with referring provider, via [employer] ([employer]) at the time of the interpretation. Signatures _ _ ? Signed By: Yojana RODRIGUEZ, Taty EchoEchocardiogram - Complete ? 08:53:13 Summary The left ventricle is normal in size, wall thickness and systolic function. The ejection fraction is 55-60%. Cannot exclude mild hypokinesis of the distal septal wall. Normal diastolic function. The right ventricle is normal in size and function. Comparison No prior study available for comparison. Signature ? Signed By: Ander Ledesma DO Cardiac Cath ProcedureCardiac Cath Procedure ? 13:18:00 Conclusions Interventional Summary LM: luminal irregularities LAD: luminal irregularities LCx: 60% stenosis in small OM2, iFR 0.96 RCA: dominant; luminal irregularities LVEDP: 17 mmHg Complications: None Specimens: None EBL: 5 mL Interventional Recommendations_ASA 81 mg daily lifelong_maximal medical therapy for CAD per guidelines_radial compression band for 2 hours Assessment and Plan Assessment Anesthesia Assessment: Chart Reviewed Documented by User: Leo Velazquez MD 03/26/25 09:38 [facility] Past Medical History Medical History (Updated 03/22/25 @ 15:08 by Charla Hood RN) CLL (chronic lymphocytic leukemia) 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, as defined in [place] Hyperlipidemia HTN (hypertension) Cognitive capacity: ormal Family History Family history of problems with anesthesia: No Surgical History Surgical History (Updated 03/26/25 @ 09:23 by Loida Meza RN) Hx of foot surgery Hx of shoulder surgery Hx of cardiac catheterization H/O colonoscopy History of Problems with Anesthesia: No Social History Social History Patient Tobacco Use Status: Former Tobacco user Tobacco use type: Cigarette Use of substances other than those prescribed or required for medical reasons: No Are you DNR?: No Advance Directives: Yes Advance Directives on File: Yes Advance Directives Date on File: 01/23/20 Meds Allergies Allergy/AdvReac Type Severity Reaction Status Date / Time No Known Allergies (No Known Allergy Unverified 01/04/20 16:34 Allergies*) Home Medications ?Medication ?Instructions ?Recorded ?Confirmed ?Last Taken ?Type aspirin 81 mg tablet,delayed 81 mg PO DAILY 03/22/25 03/22/25 Unknown History release metoprolol succinate 25 mg 25 mg PO DAILY 03/22/25 03/22/25 Unknown History tablet,extended release 24 hr multivitamin 1 tab PO DAILY 03/22/25 03/22/25 Unknown History rosuvastatin 10 mg tablet 10 mg PO BEDTIME 03/22/25 03/22/25 Unknown History Exam Exam Date and Time: 03/26/25 Airway Mallampati Class: II TM Dist: >3cm Neck ROM: Full Heart: normal Lungs: normal Other: normal Assessment and Plan Assessment Anesthesia Assessment: Anesthesia Plan Discussed Final Anesthetic Review Family History of Problems with Anesthesia: No History of Problems with Anesthesia: No NPO: Yes ASA Class: II and III Final Preanesthetic Review: No Changes in Pt Med Stat, Meds/Allgs Chart Reviewed, Consent Obtained/Reviewed and Anes Risks/Benef Reviewed Patient Risk: Low Procedure Risk: Low
[2025-03-26 09:27] VITALS: BMI 21.8
[2025-03-26 09:36] VITALS: BP 183/76; PULSE 67; RESP 16; TEMP 35.9; O2SAT 100
[2025-03-26] MEDS: Lactated Ringers 1,000 ML 100 ML IVCONT (09:46)
[2025-03-26 11:15] VITALS: BP 131/56; PULSE 70; RESP 16; TEMP 36.1; O2SAT 98
--- NOTE | 2025-03-26 11:20 | PM.OP ---
Brief Operative Note Date of Service: 03/26/25 Pre-op diagnosis: Screening Post-op diagnosis: other (Colon polyps) Procedure: Colonoscopy to the cecum and TI with cold snare polypectomy x 2 Surgeon: Hugo Briggs MD Anesthesia: MAC Was an Professor Of Mechanical Engineering used for this Procedure?: No Estimated blood loss (mL): 2.0 Pathology: other (A. Ascending colon polyp B. Polyp at 15cm) Condition: stable Disposition: PACU
[2025-03-26 11:35] VITALS: BP 147/63; PULSE 50; RESP 15; TEMP 36.2; O2SAT 100
--- NOTE | 2025-03-26 11:40 | OP_ITS ---
DATE OF SERVICE: 03/26/2025 SURGEON: Hugo Briggs MD INDICATIONS: The patient presents for evaluation of colorectal cancer screening. Full consent has been obtained from him for this, including risks of bleeding and perforation. PREOPERATIVE DIAGNOSIS: Colorectal cancer screening. POSTOPERATIVE DIAGNOSIS: PROCEDURE PERFORMED: Colonoscopy to the cecum and terminal ileum with cold snare polypectomies. ESTIMATED BLOOD LOSS: COMPLICATIONS: ANESTHESIA: Monitored anesthesia care. ASSISTANTS: SPECIMENS: POSTOPERATIVE DIAGNOSES: Colorectal cancer screening, colon polyps, diverticulosis, and internal hemorrhoids. DESCRIPTION OF PROCEDURE: The patient was placed in the left lateral decubitus position. The digital rectal exam revealed no abnormalities. The Olympus video pediatric colonoscope was entered into the rectum and advanced easily to the cecum. Once in the cecum, I did identify normal-appearing cecal pouch with appendiceal orifice and a normal-appearing ileocecal valve. The terminal ileum was cannulated and appeared normal. The scope was withdrawn back in the colon. The entire cecum and ileocecal valve appeared normal. The scope was slowly withdrawn assessing all mucosal surfaces carefully. Preparation was excellent. In the proximal ascending colon was a flat, but raised 4 or 5 mm polyp, which was removed by cold snare polypectomy and recovered by suction. The polypectomy site appeared clean, without any sign of residual polyp nor significant bleeding. At 15 cm was an another flat approximately 4 or 5 mm polyp, which was removed by cold snare polypectomy and recovered by suction. The polypectomy site appeared clean, without any sign of residual polyp nor significant bleeding. I did not visualize any other polyps, colitis, nor angiodysplasia. There was a mild amount of sigmoid diverticulosis. In the rectum, scope was retroflexed visualizing small internal hemorrhoids, but no other pathology. The rectal mucosa appeared normal. Scope was straightened and withdrawn from the patient. He tolerated the procedure well and was returned to the recovery area in stable condition. IMPRESSION: 1. Small colon polyps. 2. Internal hemorrhoids. PLAN: The results of the pathology will be checked. Given these relatively minimal findings and his age, I do not think he would need any further followup screening colonoscopies. He was advised to resume his aspirin in 48 hours. He will otherwise see me as needed. MD ZOYA Camp/NILEL / [phone] [facility]
== END 2025-03-26 11:58 | disposition home or self-care (01) ==
PROVIDERS: PCP Internal Medicine Medical Oncology; Visit Provider Internal Medicine
PROC: 0DJD8ZZ Inspection of Lower Intestinal Tract, Via Natural or Artificial Opening Endoscopic (ICD-10-PCS; CPT 45378; principal; 2025-03-26 10:40)
DX: Z12.11 Encounter for screening for malignant neoplasm of colon (principal); K57.30 Diverticulosis of large intestine without perforation or abscess without bleeding; K64.8 Other hemorrhoids; D12.2 Benign neoplasm of ascending colon; D12.5 Benign neoplasm of sigmoid colon
CPT/HCPCS: 45385; 88305; J2003; J2704